=== PATIENT | female | born 1955 | race Hispanic/Latino ===

== ENCOUNTER 2017-04-20 10:52 | Inpatient (IN) | payer BC ==
[2017-04-20 11:04] VITALS: BMI 25.7
[2017-04-20] MEDS ORDERED: Sodium Chloride 0.9% 1,000 ML IV STA (11:49)
[2017-04-20] MEDS ORDERED: Iohexol 240 (50 ml) PO ONE (11:52)
[2017-04-20] MEDS ORDERED: Iohexol 240 (50 ml) ONE (12:00)
[2017-04-20 12:05] LABS: BASO % 0.2 % (0.0-2.0); HEMOGLOBIN 13.1 g/dL (12.0-16.0); LYMPH # 0.6 K/uL (1.0-4.3); LYMPH % 5.5 % (20.0-40.0); MEAN CELL VOLUME 92.7 fl (81.0-99.0); MEAN CORPUSCULAR HEMOGLOBIN 30.8 pg (27.0-31.0); MEAN CORPUSCULAR HGB CONC 33.2 g/dL (33.0-37.0); MEAN PLATELET VOLUME 8.5 fl (7.2-11.7); MONO # 0.3 K/uL (0.0-0.8); MONO % 2.8 % (0.0-10.0); NEUT # 10.1 K/uL (1.8-7.0); NEUT % 91.5 % (50.0-75.0); PLATELET COUNT 171 K/uL (130-400); RBC 4.24 Mil/uL (3.80-5.20); RED CELL DISTRIBUTION WIDTH 12.5 % (11.5-14.5)
[2017-04-20 12:06] LABS: VENOUS BLOOD GAS PCO2 34 mmHg (40-60); VENOUS BLOOD GAS PO2 62 mm/Hg (30-55); VENOUS BLOOD PH 7.43 (7.32-7.43)
--- NOTE | 2017-04-20 12:09 | ED PDOC ---
HPI: Seizure Time Seen by Provider: 04/20/17 11:03 Chief Complaint (Nursing): Seizure Chief Complaint (Provider): Abdominal Pain, Vomiting, Diarrhea and Headache History Per: Patient History/Exam Limitations: no limitations Past Medical History Vital Signs: Last Vital Signs Temp 99.4 F 04/20/17 11:07 Pulse 98 H 04/20/17 11:07 Resp 18 04/20/17 11:07 BP 122/76 04/20/17 11:07 Pulse Ox 98 04/20/17 11:07 - Medical History PMH: Fibromyalgia, HTN - Surgical History Surgical History: Cholecystectomy - Allergies Allergies/Adverse Reactions: Allergies Allergy/AdvReac Type Severity Reaction Status Date / Time cefaclor [From Ceclor] Allergy RASH Verified 04/20/17 11:06 - ECG O2 Sat by Pulse Oximetry: 98 Disposition - Disposition
--- NOTE | 2017-04-20 12:12 | ED PDOC ---
HPI:Nausea, Vomiting, Diarrhea Time Seen by Provider: 04/20/17 11:03 Chief Complaint (Nursing): Seizure Chief Complaint (Provider): Abdominal Pain,Vomiting and Diarrhea History Per: Patient History/Exam Limitations: no limitations Onset/Duration Of Symptoms: Days (x4) Current Symptoms Are (Timing): Still Present Associated Symptoms: Vomiting, Diarrhea. denies: Fever, Chills, Nausea Exacerbating Factors: None Alleviating Factors: None Additional Complaint(s): 61 year old female with a past medical history of fibromyalgia and hypertension and hyperlipidemia presents to the ED complaining of abdominal pain, vomiting and diarrhea x4 days. The patients states that yesterday she had multiple episodes of non bloody, non bilious vomit and watery, non bloody diarrhea associated with epigastric pain but was still able to tolerate PO. The patient further states that yesterday while driving in a car she felt weak to the point where she felt as though she was going to pass out but she states that she did not. She states that she was initially brought to the ED because she thought she had a seizure but those who witnessed her pass out state that there was no convulsions or seizure like activity. Denies chest pain, shortness of breath and loss of consciousness. In addition, the patient also states that she has had 4 days of intermittent cough and fever as well as headache. She reports that headaches are typical for her as she was diagnosed with migraine headaches in the past. She luis hx of seizures. Per family patient taking Xanax, SOMA, and vicodin on regular basis but unknown when she took it the last. Abnormal Vaginal Bleeding: No Past Medical History Reviewed: Historical Data, Nursing Documentation, Vital Signs Vital Signs: Last Vital Signs Temp 99.4 F 04/20/17 11:07 Pulse 98 H 04/20/17 11:07 Resp 18 04/20/17 11:07 BP 122/76 04/20/17 11:07 Pulse Ox 98 04/20/17 11:07 - Medical History PMH: Fibromyalgia, HTN, Hyperlipidemia - Surgical History Surgical History: Cholecystectomy - Family History Family History: States: Unknown Family Hx - Social History Current smoker - smoking cessation education provided: No Ex-Smoker (has not smoked in the last 12 months): No Alcohol: None Drugs: Denies - Home Medications Home Medications: Ambulatory Orders Medication Instructions Recorded Carisoprodol [Soma] 350 mg PO Q4 04/20/17 Ferrous Sulfate [Ferosul] 325 mg PO DAILY 04/20/17 Hydrocodone/Acetaminophen 10 mg PO Q4 04/20/17 [Hydrocodone-Acetamin 10-325 mg] Nitroglycerin [Nitrostat] 0.4 mg PO PRN PRN 04/20/17 Pantoprazole [Protonix EC Tab] 40 mg PO DAILY 04/20/17 Ropinirole HCl [Ropinirole HCl] 1 mg PO Q12 04/20/17 Tapentadol HCl [Nucynta] 100 mg PO Q8 04/20/17 - Allergies Allergies/Adverse Reactions: Allergies Allergy/AdvReac Type Severity Reaction Status Date / Time cefaclor [From [facility]] Allergy RASH Verified 04/20/17 11:06 Review of Systems ROS Statement: Except As Marked, All Systems Reviewed And Found Negative Constitutional: Positive for: Fever (intermittent) Cardiovascular: Negative for: Chest Pain Respiratory: Positive for: Cough. Negative for: Shortness of Breath Gastrointestinal: Positive for: Vomiting (non bloody; non bilious), Abdominal Pain, Diarrhea (non bloody; watery) Neurological: Positive for: Weakness, Headache Physical Exam - Reviewed Nursing Documentation Reviewed: Yes Vital Signs Reviewed: Yes - Physical Exam Appears: Positive for: Non-toxic, No Acute Distress Head Exam: Positive for: ATRAUMATIC, NORMAL INSPECTION, NORMOCEPHALIC Skin: Positive for: Normal Color, Warm, Dry. Negative for: Rash Eye Exam: Positive for: Normal appearance, EOMI, PERRL ENT: Positive for: Normal ENT Inspection. Negative for: Nasal Congestion, Tonsillar Exudate Neck: Positive for: Normal, Painless ROM, Supple Cardiovascular/Chest: Positive for: Regular Rate, Rhythm, Chest Non Tender. Negative for: Tachycardia Respiratory: Positive for: Normal Breath Sounds. Negative for: Wheezing, Respiratory Distress Gastrointestinal/Abdominal: Positive for: Normal Exam, Bowel Sounds, Soft. Negative for: Tenderness, Guarding Back: Positive for: Normal Inspection. Negative for: L CVA Tenderness, R CVA Tenderness, Muscle Spasm Extremity: Positive for: Normal ROM. Negative for: Tenderness, Deformity, Swelling Neurologic/Psych: Positive for: Alert, Oriented (x3), Gait (steady) - Laboratory Results Result Diagrams: 04/21/17 07:39 04/21/17 07:39 - ECG O2 Sat by Pulse Oximetry: 98 (RA) Pulse Ox Interpretation: Normal - Progress Re-evaluation Time: 17:00 Condition: Re-examined, Unchanged Medical Decision Making Medical Decision Makin Initial Impression 61 y/o female presenting with abdominal pain, vomiting, diarrhea and migraine headaches Differentials: Gastroenteritis, Colitis, Dehydration with vasovagal syncope as a result migraine headaches Initial Plan: * VBG * CT Abdomen & Pelv * CT Head w/o Contrast * EKG * Alcohol Serum * CMP * Lipase * CBC * Potassium Chloride 20 meq PO * NS 1000 mls IV 1000mls/hr * Iohexol 50mL PO * Reglan 10mg IVP * Blood Culture * Reevaluation 1700 While I was at bedside discussing disposition with the patient and family after patient just had diarrhea in the bathroom and was in the bed when she suddenly lied down and starting to have seizures activity involving her head/ neck/torso. Patient was unconscious and seizing for 1 min. No tongue biting or urination noted. Patient was given Ativan IV after which she was postictal. 1800 Discussed the case with Dr Ling who will be on consult. Documented by Paris Espinoza acting as a scribe for Zo Bishop MD. All medical record entries made by the Scribe were at my direction and personally dictated by me. I have reviewed the chart and agree that the record accurately reflects my personal performance of the history, physical exam, medical decision making, and the department course for this patient. I have also personally directed, reviewed, and agree with the discharge instructions and disposition. Disposition - Clinical Impression Clinical Impression: Witnessed seizure, Gastroenteritis, Headache, Dehydration - Patient ED Disposition Is Patient to be Admitted: Yes Discussed With : Freddy Torres Doctor Will See Patient In The: ED Counseled Patient/Family Regarding: Studies Performed, Diagnosis - Disposition Disposition Time: 16:50 Condition: FAIR - Pt Status Changed To: Hospital Disposition Of: Inpatient - Admit Certification Admit to Inpatient:: After my assessment, the patient will require hospitalization for at least two midnights. This is because of the severity of symptoms shown, intensity of services needed, and/or the medical risk in this patient being treated as an outpatient. - POA Present On Arrival: None
[2017-04-20 12:15] LABS: ALB/GLOB RATIO 1.4 (1.0-2.1); ALBUMIN 4.5 g/dL (3.5-5.0); ALT/SGPT 30 U/L (9-52); AST/SGOT 21 U/L (14-36); BLOOD UREA NITROGEN 10 mg/dl (7-17); GFR AFRICAN-AMERICAN > 60; GFR NON-AFRICAN AMERICAN > 60; LIPASE 55 U/L (23-300)
[2017-04-20] MEDS ORDERED: Potassium Chloride 20 mEq ER Tab PO ONE ×2 (12:30→12:53)
[2017-04-20 13:25] LABS: BANDS 1 % (0-2); LYMPHOCYTE 6 % (20-50); MONOCYTE 4 % (0-10); NEUTROPHIL 89 % (42-75); PLATELET ESTIMATE NORMAL (NORMAL); TOTAL CELLS COUNTED 100
[2017-04-20] MEDS ORDERED: Sodium Chloride 0.9% 50 ML IV ONE (14:09)
[2017-04-20] MEDS ORDERED: Iohexol 300 100 ML IJ ONE (14:09)
--- NOTE | 2017-04-20 14:46 | CT ---
PROCEDURE: CT Abdomen and Pelvis with contrast HISTORY: abdominal pain COMPARISON: None. TECHNIQUE: Contrast dose: 95 Omnipaque 300 Radiation dose: Total exam DLP = 618.9 mGy-cm. This CT exam was performed using one or more of the following dose reduction techniques: Automated exposure control, adjustment of the mA and/or kV according to patient size, and/or use of iterative reconstruction technique. FINDINGS: LOWER THORAX: Unremarkable. LIVER: Unremarkable. No gross lesion or ductal dilatation. GALLBLADDER AND BILE DUCTS: Prior cholecystectomy with surgical clips in place. PANCREAS: Unremarkable. No gross lesion or ductal dilatation. SPLEEN: Unremarkable. ADRENALS: Unremarkable. No mass. KIDNEYS AND URETERS: Unremarkable. No hydronephrosis. No solid mass. VASCULATURE: Unremarkable. No aortic aneurysm. BOWEL: Colonic diverticulosis without evidence for acute diverticulitis. No obstruction. No gross mural thickening. APPENDIX: Normal appendix. PERITONEUM: Small fat containing umbilical hernia. No free fluid. No free air. Nonspecific small calcified structures within the pelvis. LYMPH NODES: Unremarkable. No enlarged lymph nodes. BLADDER: Unremarkable. REPRODUCTIVE: Unremarkable. BONES: No acute fracture. OTHER FINDINGS: None. IMPRESSION: No acute abdominal pelvic pathology. Colonic diverticulosis without evidence for acute diverticulitis. Additional findings as above.
--- NOTE | 2017-04-20 14:48 | CT ---
PROCEDURE: CT HEAD WITHOUT CONTRAST. HISTORY: headache COMPARISON: None available. TECHNIQUE: Axial computed tomography images were obtained through the head/brain without intravenous contrast. Radiation dose: Total exam DLP = 926.3 mGy-cm. This CT exam was performed using one or more of the following dose reduction techniques: Automated exposure control, adjustment of the mA and/or kV according to patient size, and/or use of iterative reconstruction technique. FINDINGS: HEMORRHAGE: No intracranial hemorrhage. BRAIN: No mass effect or edema. No atrophy or chronic microvascular ischemic changes. VENTRICLES: Unremarkable. No hydrocephalus. CALVARIUM: Unremarkable. PARANASAL SINUSES: Unremarkable as visualized. No significant inflammatory changes. MASTOID AIR CELLS: Unremarkable as visualized. No inflammatory changes. OTHER FINDINGS: None. IMPRESSION: No acute intracranial pathology.
[2017-04-20] MEDS ORDERED: Multivitamin (MVI) 10 ML, Thiamine 100 MG in Dextrose 5%/0.45% NS 1,000 ML IV ONE (16:57)
[2017-04-20] MEDS ORDERED: Ciprofloxacin 400mg/200ml D5W 400 MG/200 ML BAG IVPB STA (17:43)
[2017-04-20] MEDS ORDERED: metroNIDAZOLE 500mg/100ml NS 100 ML IVPB STA (17:44)
[2017-04-20] MEDS ORDERED: metroNIDAZOLE 500mg/100ml NS 100 ML IVPB ONE (18:16)
[2017-04-20] MEDS ORDERED: Sodium Chloride 0.9% 1,000 ML IV SCH (18:30)
[2017-04-20 18:35] LABS: BARBITURATES, UR NEGATIVE (NEGATIVE); BENZODIAZEPINES, UR NEGATIVE (NEGATIVE); PHENCYCLIDINE, UR NEGATIVE (NEGATIVE)
[2017-04-20 18:39] LABS: OPIATES, UR POSITIVE (NEGATIVE)
--- NOTE | 2017-04-20 21:13 | CP.PCM.HP ---
History of Present Illness - History of Present Illness History of Present Illness: CC: AMS, and Diarrhea/Nausea/Vomiting History of Present Illness: History from the Patient, Family and Chart A 61 year old female with a past medical history of Fibromyalgia on Vicodin and Tapentadol , RLS on Soma, DILIA on CPAP, hypertension & Hyperlipidemia presents to the ED complaining of abdominal pain, vomiting and diarrhea x4 days which got worse today with profuse diarrhea about 6X over 2hrs. The patients states that yesterday she had multiple episodes of non bloody, non bilious vomit and watery, non bloody diarrhea associated with epigastric pain but was still able to tolerate PO. The patient further states that yesterday while driving in a car she felt weak to the point where she felt as though she was going to pass out but she states that she did not. Denies chest pain, shortness of breath and loss of consciousness. In addition, the patient also states that she has had 4 days of intermittent cough and fever as well as headache. She reports that headaches are typical for her as she was diagnosed with migraine headaches in the past. In the ER, she was given a bolus of IVF and being monitored when she had seizure like activities which was aborted by Ativan 2mg IV, and she became Lethargic after the Ativan. No loss of sphincter control or Tongue Bite. As Per family patient taking Xanax, SOMA, and vicodin on regular basis but unknown when she took ilast before Presentation. Present on Admission - Present on Admission Any Indicators Present on Admission: No History of DVT/PE: No History of Uncontrolled Diabetes: No Urinary Catheter: No Decubitus Ulcer Present: No Review of Systems - Review of Systems All systems: reviewed and no additional remarkable complaints except - Constitutional Constitutional: Chills, Fatigue, Fever, Headache - Cardiovascular Cardiovascular: As Per HPI - Gastrointestinal Gastrointestinal: As Per HPI, Abdominal Pain, Bloating, Change in Stool Character, Diarrhea, Loose Stools, Nausea, Vomiting - Neurological Neurological: As Per HPI Past Patient History - Past Medical History & Family History Past Medical History?: Yes Past Family History: Reviewed and not pertinent - Past Social History Smoking Status: Never Smoked Alcohol: None Drugs: Denies - CARDIAC Hx Hypertension: Yes - PULMONARY Hx Sleep Apnea: Yes - PSYCHIATRIC Hx Substance Use: No - SURGICAL HISTORY Hx Cholecystectomy: Yes - ANESTHESIA Hx Anesthesia: No Meds Allergies/Adverse Reactions: Allergies Allergy/AdvReac Type Severity Reaction Status Date / Time cefaclor [From [facility]] Allergy RASH Verified 04/20/17 11:06 Physical Exam - Constitutional Appears: Well, In Acute Distress - Head Exam Head Exam: ATRAUMATIC, NORMAL INSPECTION, NORMOCEPHALIC - Eye Exam Eye Exam: EOMI, Normal appearance, PERRL Pupil Exam: NORMAL ACCOMODATION, PERRL - ENT Exam ENT Exam: Mucous Membranes Moist, Normal Exam - Neck Exam Neck exam: Positive for: Normal Inspection - Respiratory Exam Respiratory Exam: Clear to Auscultation Bilateral, NORMAL BREATHING PATTERN - Cardiovascular Exam Cardiovascular Exam: REGULAR RHYTHM, +S1, +S2 - GI/Abdominal Exam GI & Abdominal Exam: Guarding, Normal Bowel Sounds, Soft, Tenderness. absent: Rebound, Rigid - Extremities Exam Extremities exam: Positive for: normal capillary refill, normal inspection - Back Exam Back exam: NORMAL INSPECTION. absent: CVA tenderness (L), CVA tenderness (R) - Neurological Exam Neurological exam: Altered, CN II-XII Intact, Reflexes Normal - Psychiatric Exam Psychiatric exam: Normal Affect, Normal Mood - Skin Skin Exam: Dry, Intact, Normal Color, Warm Results - Vital Signs Recent Vital Signs: Last Vital Signs Temp 102.5 F H 04/20/17 20:27 Pulse 85 04/20/17 20:27 Resp 20 04/20/17 20:27 BP 128/72 04/20/17 20:27 Pulse Ox 95 04/20/17 20:27 - Labs Result Diagrams: 04/21/17 07:39 04/21/17 07:39 Labs: Laboratory Results - last 24 hr 04/20/17 04/20/17 04/20/17 11:08 11:52 11:55 WBC RBC Hgb Hct MCV MCH MCHC RDW Plt Count MPV Neut % (Auto) Lymph % (Auto) [place] % (Auto) Eos % (Auto) Baso % (Auto) Neut # Lymph # [place] # Eos # Baso # Neutrophils % (Manual) Band Neutrophils % Lymphocytes % (Manual) Monocytes % (Manual) Platelet Estimate RBC Morphology pO2 62 H VBG pH 7.43 VBG pCO2 34 L VBG HCO3 23.9 VBG Total CO2 23.6 VBG O2 Sat (Calc) 95.8 H VBG Base Excess -1.0 L VBG Potassium 3.3 L A-a O2 Difference 45.0 Sodium 129.0 L 131 L Chloride 98.0 96 L Glucose 121 H Lactate 0.7 FiO2 21.0 Potassium 3.3 L Carbon Dioxide 23 Anion Gap 15 BUN 10 Creatinine 0.6 L Est GFR ( Amer) > 60 Est GFR (Non-Af Amer) > 60 POC Glucose (mg/dL) 113 H Random Glucose 119 H Calcium 9.0 Total Bilirubin 1.0 AST 21 ALT 30 Alkaline Phosphatase 56 Total Protein 7.6 Albumin 4.5 Globulin 3.2 Albumin/Globulin Ratio 1.4 Lipase 55 Venous Blood Potassium 3.3 L Urine Opiates Screen Urine Methadone Screen Ur Barbiturates Screen Ur Phencyclidine Scrn Ur Amphetamines Screen U Benzodiazepines Scrn U Oth Cocaine Metabols U Cannabinoids Screen Alcohol, Quantitative < 10 04/20/17 04/20/17 11:55 17:50 WBC 11.0 H RBC 4.24 Hgb 13.1 Hct 39.3 MCV 92.7 MCH 30.8 MCHC 33.2 RDW 12.5 Plt Count 171 MPV 8.5 Neut % (Auto) 91.5 H Lymph % (Auto) 5.5 L [place] % (Auto) 2.8 Eos % (Auto) 0.0 Baso % (Auto) 0.2 Neut # 10.1 H Lymph # 0.6 L [place] # 0.3 Eos # 0.0 Baso # 0.0 Neutrophils % (Manual) 89 H Band Neutrophils % 1 Lymphocytes % (Manual) 6 L Monocytes % (Manual) 4 Platelet Estimate Normal RBC Morphology Normal pO2 VBG pH VBG pCO2 VBG HCO3 VBG Total CO2 VBG O2 Sat (Calc) VBG Base Excess VBG Potassium A-a O2 Difference Sodium Chloride Glucose Lactate FiO2 Potassium Carbon Dioxide Anion Gap BUN Creatinine Est GFR ( Amer) Est GFR (Non-Af Amer) POC Glucose (mg/dL) Random Glucose Calcium Total Bilirubin AST ALT Alkaline Phosphatase Total Protein Albumin Globulin Albumin/Globulin Ratio Lipase Venous Blood Potassium Urine Opiates Screen Positive H Urine Methadone Screen Negative Ur Barbiturates Screen Negative Ur Phencyclidine Scrn Negative Ur Amphetamines Screen Negative U Benzodiazepines Scrn Negative U Oth Cocaine Metabols Negative U Cannabinoids Screen Negative Alcohol, Quantitative - Imaging and Cardiology CT abdomen/Plevis: Status: Report reviewed by me Additional comment: IMPRESSION: No acute abdominal pelvic pathology. Colonic diverticulosis without evidence for acute diverticulitis. CT scan - head Status: Report reviewed by me Additional comment: IMPRESSION: No acute intracranial pathology. Assessment & Plan (1) Acute gastroenteritis Assessment and Plan: AMS: Metabolic Encephalopathy Vs Medication VS Poetical- CT head w/o contrast- Negative for Acute finding IVF IV Ciprofloxacin/Flagyl Blood and Urine Cultures Stool work up U/A Repeat EKG ID Consult Status: Acute (2) Chronic pain syndrome Assessment and Plan: Continue Vicodin PRN Hold Soma due to seizure episode Status: Chronic Priority: Medium (3) Witnessed seizure Assessment and Plan: Ativan PRN Neurology Consult MRI Brain if Mental status does not change. Status: Acute Priority: Low (4) DILIA (obstructive sleep apnea) Assessment and Plan: CPAP (requested the family to bring her CPAP Machine) O2 Via Status: Chronic Priority: Low
[2017-04-20] MEDS: HYDROCODONE PO PRN (22:57)
[2017-04-20] MEDS: ACETAMINOPHEN PO PRN (22:57)
[2017-04-20] MEDS: ROPINIROLE HCL 1 MG PO SCH (23:04)
[2017-04-21 00:06] LABS: MAGNESIUM 1.7 MG/DL (1.6-2.3)
[2017-04-21] MEDS: TAPENTADOL HCL 100 MG PO SCH ×3 (01:38→19:05)
[2017-04-21] MEDS: metroNIDAZOLE 500mg/100ml NS 100 ML IVPB SCH ×3 (01:40→19:01)
[2017-04-21] MEDS: Sodium Chloride 0.9% 1,000 ML IV SCH ×2 (05:20→19:05)
[2017-04-21 07:39] LABS: BASO % 0.1 % (0.0-2.0); HEMOGLOBIN 12.8 g/dL (12.0-16.0); LYMPH # 0.6 K/uL (1.0-4.3); MEAN CELL VOLUME 92.4 fl (81.0-99.0); MEAN CORPUSCULAR HGB CONC 33.5 g/dL (33.0-37.0); MEAN PLATELET VOLUME 8.9 fl (7.2-11.7); MONO # 0.7 K/uL (0.0-0.8); MONO % 8.3 % (0.0-10.0); NEUT # 6.9 K/uL (1.8-7.0); NEUT % 84.6 % (50.0-75.0); NRBC % 0.3 % (0.0-0.0); RBC 4.14 Mil/uL (3.80-5.20); RED CELL DISTRIBUTION WIDTH 12.5 % (11.5-14.5); WHITE BLOOD COUNT 8.2 K/uL (4.8-10.8)
[2017-04-21 07:55] LABS: ALB/GLOB RATIO 1.3 (1.0-2.1); ALBUMIN 3.9 g/dL (3.5-5.0); ALT/SGPT 33 U/L (9-52); AST/SGOT 22 U/L (14-36); BLOOD UREA NITROGEN 9 mg/dl (7-17); CALCIUM 8.3 mg/dL (8.4-10.2); GFR AFRICAN-AMERICAN > 60; GFR NON-AFRICAN AMERICAN > 60
[2017-04-21] MEDS ORDERED: Chlorhexidine Gluconate 1 APPL/PKT TP ONE (08:06)
--- NOTE | 2017-04-21 08:10 | CARD ---
APPROVED REPORT EKG Measurement Heart [id number] <Conclusion> Normal sinus rhythm Minimal voltage criteria for LVH, may be normal variant Nonspecific ST abnormality Abnormal ECG
[2017-04-21] MEDS ORDERED: Potassium Chloride 20 mEq ER Tab PO ONE (08:29)
[2017-04-21] MEDS: Pantoprazole 40 mg EC Tab PO SCH (08:34)
[2017-04-21] MEDS: ROPINIROLE HCL 1 MG PO SCH ×2 (08:36→20:47)
[2017-04-21] MEDS ORDERED: Ciprofloxacin 400mg/200ml D5W 400 MG/200 ML BAG IVPB SCH (09:00)
--- NOTE | 2017-04-21 10:47 | CP.PCM.CON ---
History of Present Illness - History of Present Illness History of Present Illness: Infectious Disease Consultation Note- asked to see this patient at the request of Dr. dotson for gastroenteritis symptoms rule out infectious etiology. HPI- Patient is a 61 year old female with PMH of fibromyalgias, HTN, HLD and h/o hiatal hernia s/p band procedure who was admitted with c/o nausea and dry heave vomiting and abdominal pain and also few episodes of watery diarrhea yesterday. she states she ate pizza the other day but no one else in her family got sick and they all had the same food. she denies any recent exotic travel. She also states couple weeks ago she was on augmentin for strep throat. pt. also c/o fever and chills. denies any LITTLE, states had cough but not now, denies any sob, denies any chest pain, epigastric abd pain, + nausea and diarrhea. Review of Systems - Review of Systems Review of Systems: ROS- as stated in HPI Past Patient History - Past Medical History & Family History Past Medical History?: Yes - Past Social History Smoking Status: Never Smoked Drugs: Denies Home Situation {Lives}: With Family - CARDIAC Hx Hypertension: Yes - PULMONARY Hx Respiratory Disorders: No - RENAL Hx Chronic Kidney Disease: No - ENDOCRINE/METABOLIC Hx Endocrine Disorders: No - HEMATOLOGICAL/ONCOLOGICAL Hx Blood Disorders: No - MUSCULOSKELETAL/RHEUMATOLOGICAL Hx Falls: Yes - PSYCHIATRIC Hx Substance Use: No - SURGICAL HISTORY Hx Cholecystectomy: Yes - ANESTHESIA Hx Anesthesia: Yes Hx Anesthesia Reactions: No Meds Allergies/Adverse Reactions: Allergies Allergy/AdvReac Type Severity Reaction Status Date / Time cefaclor [From [facility]] Allergy RASH Verified 04/20/17 11:06 - Medications Medications: Current Medications Acetaminophen (Tylenol 325mg Tab) 650 mg PO Q6 PRN PRN Reason: Fever >100.4 F Last Admin: 04/21/17 05:01 Dose: 650 mg Ferrous Sulfate (Feosol) 325 mg PO DAILY [facility] Last Admin: 04/21/17 08:35 Dose: 325 mg Home Med (Hydrocodone/Acetaminophen [Hydrocodone-Acetamin 10-325 Mg]) 10 mg PO Q6 PRN PRN Reason: Pain, moderate (4-7) Last Admin: 04/20/17 22:57 Dose: 10 mg Home Med (Ropinirole Hcl [Ropinirole Hcl]) 1 mg PO Q12 [facility] Last Admin: 04/21/17 08:36 Dose: 1 mg Home Med (Tapentadol Hcl [Nucynta]) 100 mg PO Q8 [facility] Last Admin: 04/21/17 08:37 Dose: 100 mg Sodium Chloride (Sodium Chloride 0.9%) 1,000 mls @ 125 mls/hr IV .Q8H [facility] Stop: 04/21/17 18:22 Last Admin: 04/21/17 05:20 Dose: 125 mls/hr Metronidazole (Flagyl 500mg/100ml Ns) 100 mls @ 100 mls/hr IVPB Q8 [facility] PRN Reason: Protocol Last Admin: 04/21/17 08:34 Dose: 100 mls/hr Ciprofloxacin (Cipro 400mg/200ml Dsw) 400 mg in 200 mls @ 200 mls/hr IVPB Q12 [facility] PRN Reason: Protocol Lorazepam (Ativan) 2 mg IV Q4 PRN PRN Reason: Seizure activity Ondansetron HCl (Zofran Inj) 4 mg IVP Q4 PRN PRN Reason: Nausea/Vomiting Pantoprazole Sodium (Protonix Ec Tab) 40 mg PO DAILY [facility] Last Admin: 04/21/17 08:34 Dose: Not Given Physical Exam - Constitutional Appears: No Acute Distress - Head Exam Head Exam: ATRAUMATIC - Eye Exam Eye Exam: EOMI Pupil Exam: PERRL - ENT Exam ENT Exam: Normal Oropharynx - Neck Exam Neck exam: Positive for: Full Rom - Respiratory Exam Respiratory Exam: Clear to Auscultation Bilateral, NORMAL BREATHING PATTERN - Cardiovascular Exam Cardiovascular Exam: RRR, +S1, +S2 - GI/Abdominal Exam GI & Abdominal Exam: Normal Bowel Sounds, Soft Additional comments: no distention minimal tenderness in midepigastric region with deep palpation No guarding, no rebound - Extremities Exam Extremities exam: Positive for: normal inspection - Neurological Exam Neurological exam: Alert, Oriented x3 Results - Vital Signs Recent Vital Signs: Last Vital Signs Temp 101.8 F H 04/21/17 08:23 Pulse 75 04/21/17 08:23 Resp 18 04/21/17 08:23 BP 136/75 04/21/17 08:23 Pulse Ox 95 04/21/17 08:23 - Labs Result Diagrams: 04/21/17 07:39 04/21/17 07:39 Labs: Laboratory Results - last 24 hr 04/20/17 04/20/17 04/20/17 11:08 11:52 11:55 WBC RBC Hgb Hct MCV MCH MCHC RDW Plt Count MPV Neut % (Auto) Lymph % (Auto) [place] % (Auto) Eos % (Auto) Baso % (Auto) Neut # Lymph # [place] # Eos # Baso # Neutrophils % (Manual) Band Neutrophils % Lymphocytes % (Manual) Monocytes % (Manual) Platelet Estimate RBC Morphology ESR pO2 62 H VBG pH 7.43 VBG pCO2 34 L VBG HCO3 23.9 VBG Total CO2 23.6 VBG O2 Sat (Calc) 95.8 H VBG Base Excess -1.0 L VBG Potassium 3.3 L A-a O2 Difference 45.0 Sodium 129.0 L 131 L Chloride 98.0 96 L Glucose 121 H Lactate 0.7 FiO2 21.0 Potassium 3.3 L Carbon Dioxide 23 Anion Gap 15 BUN 10 Creatinine 0.6 L Est GFR ( Amer) > 60 Est GFR (Non-Af Amer) > 60 POC Glucose (mg/dL) 113 H Random Glucose 119 H Calcium 9.0 Magnesium Total Bilirubin 1.0 AST 21 ALT 30 Alkaline Phosphatase 56 Total Protein 7.6 Albumin 4.5 Globulin 3.2 Albumin/Globulin Ratio 1.4 Lipase 55 Free T4 TSH 3rd Generation Venous Blood Potassium 3.3 L Urine Opiates Screen Urine Methadone Screen Ur Barbiturates Screen Ur Phencyclidine Scrn Ur Amphetamines Screen U Benzodiazepines Scrn U Oth Cocaine Metabols U Cannabinoids Screen Alcohol, Quantitative < 10 04/20/17 04/20/17 04/20/17 11:55 17:50 23:55 WBC 11.0 H RBC 4.24 Hgb 13.1 Hct 39.3 MCV 92.7 MCH 30.8 MCHC 33.2 RDW 12.5 Plt Count 171 MPV 8.5 Neut % (Auto) 91.5 H Lymph % (Auto) 5.5 L [place] % (Auto) 2.8 Eos % (Auto) 0.0 Baso % (Auto) 0.2 Neut # 10.1 H Lymph # 0.6 L [place] # 0.3 Eos # 0.0 Baso # 0.0 Neutrophils % (Manual) 89 H Band Neutrophils % 1 Lymphocytes % (Manual) 6 L Monocytes % (Manual) 4 Platelet Estimate Normal RBC Morphology Normal ESR pO2 VBG pH VBG pCO2 VBG HCO3 VBG Total CO2 VBG O2 Sat (Calc) VBG Base Excess VBG Potassium A-a O2 Difference Sodium Chloride Glucose Lactate FiO2 Potassium Carbon Dioxide Anion Gap BUN Creatinine Est GFR ( Amer) Est GFR (Non-Af Amer) POC Glucose (mg/dL) Random Glucose Calcium Magnesium 1.7 Total Bilirubin AST ALT Alkaline Phosphatase Total Protein Albumin Globulin Albumin/Globulin Ratio Lipase Free T4 TSH 3rd Generation 0.26 L Venous Blood Potassium Urine Opiates Screen Positive H Urine Methadone Screen Negative Ur Barbiturates Screen Negative Ur Phencyclidine Scrn Negative Ur Amphetamines Screen Negative U Benzodiazepines Scrn Negative U Oth Cocaine Metabols Negative U Cannabinoids Screen Negative Alcohol, Quantitative 04/21/17 04/21/17 04/21/17 04:20 04:20 07:39 WBC 8.2 RBC 4.14 Hgb 12.8 Hct 38.3 MCV 92.4 MCH 31.0 MCHC 33.5 RDW 12.5 Plt Count 147 MPV 8.9 Neut % (Auto) 84.6 H Lymph % (Auto) 7.0 L [place] % (Auto) 8.3 Eos % (Auto) 0.0 Baso % (Auto) 0.1 Neut # 6.9 Lymph # 0.6 L [place] # 0.7 Eos # 0.0 Baso # 0.0 Neutrophils % (Manual) Band Neutrophils % Lymphocytes % (Manual) Monocytes % (Manual) Platelet Estimate RBC Morphology ESR 18 pO2 VBG pH VBG pCO2 VBG HCO3 VBG Total CO2 VBG O2 Sat (Calc) VBG Base Excess VBG Potassium A-a O2 Difference Sodium Chloride Glucose Lactate FiO2 Potassium Carbon Dioxide Anion Gap BUN Creatinine Est GFR ( Amer) Est GFR (Non-Af Amer) POC Glucose (mg/dL) Random Glucose Calcium Magnesium Total Bilirubin AST ALT Alkaline Phosphatase Total Protein Albumin Globulin Albumin/Globulin Ratio Lipase Free T4 TSH 3rd Generation 0.13 L Venous Blood Potassium Urine Opiates Screen Urine Methadone Screen Ur Barbiturates Screen Ur Phencyclidine Scrn Ur Amphetamines Screen U Benzodiazepines Scrn U Oth Cocaine Metabols U Cannabinoids Screen Alcohol, Quantitative 04/21/17 04/21/17 07:39 07:39 WBC RBC Hgb Hct MCV MCH MCHC RDW Plt Count MPV Neut % (Auto) Lymph % (Auto) [place] % (Auto) Eos % (Auto) Baso % (Auto) Neut # Lymph # [place] # Eos # Baso # Neutrophils % (Manual) Band Neutrophils % Lymphocytes % (Manual) Monocytes % (Manual) Platelet Estimate RBC Morphology ESR pO2 VBG pH VBG pCO2 VBG HCO3 VBG Total CO2 VBG O2 Sat (Calc) VBG Base Excess VBG Potassium A-a O2 Difference Sodium 130 L Chloride 96 L Glucose Lactate FiO2 Potassium 3.5 L Carbon Dioxide 26 Anion Gap 12 BUN 9 Creatinine 0.5 L Est GFR ( Amer) > 60 Est GFR (Non-Af Amer) > 60 POC Glucose (mg/dL) Random Glucose 151 H Calcium 8.3 L Magnesium Total Bilirubin 0.8 AST 22 ALT 33 Alkaline Phosphatase 44 Total Protein 6.9 Albumin 3.9 Globulin 3.0 Albumin/Globulin Ratio 1.3 Lipase Free T4 0.73 L TSH 3rd Generation Venous Blood Potassium Urine Opiates Screen Urine Methadone Screen Ur Barbiturates Screen Ur Phencyclidine Scrn Ur Amphetamines Screen U Benzodiazepines Scrn U Oth Cocaine Metabols U Cannabinoids Screen Alcohol, Quantitative Microbiology 04/20/17 11:55 Blood-Venous Blood Culture - Preliminary NO GROWTH AFTER 24 HOURS Accession No. : [id number] Patient Name / ID : JACKY MERINO / [id number] Exam Date : 04/20/2017 13:56:28 ( Approved ) Study Comment : Sex / Age : F / 61Y Creator : Ted Perez MD Dictator : Ted Perez MD Safety Technician : Excel V[employer] Developer : Ted Perez MD Approver2 : Report Date : 04/20/2017 14:45:12 My Comment : PROCEDURE: CT Abdomen and Pelvis with contrast HISTORY: abdominal pain COMPARISON: None. TECHNIQUE: Contrast dose: 95 Omnipaque 300 Radiation dose: Total exam DLP = 618.9 mGy-cm. This CT exam was performed using one or more of the following dose reduction techniques: Automated exposure control, adjustment of the mA and/or kV according to patient size, and/or use of iterative reconstruction technique. FINDINGS: LOWER THORAX: Unremarkable. LIVER: Unremarkable. No gross lesion or ductal dilatation. GALLBLADDER AND BILE DUCTS: Prior cholecystectomy with surgical clips in place. PANCREAS: Unremarkable. No gross lesion or ductal dilatation. SPLEEN: Unremarkable. ADRENALS: Unremarkable. No mass. KIDNEYS AND URETERS: Unremarkable. No hydronephrosis. No solid mass. VASCULATURE: Unremarkable. No aortic aneurysm. BOWEL: Colonic diverticulosis without evidence for acute diverticulitis. No obstruction. No gross mural thickening. APPENDIX: Normal appendix. PERITONEUM: Small fat containing umbilical hernia. No free fluid. No free air. Nonspecific small calcified structures within the pelvis. LYMPH NODES: Unremarkable. No enlarged lymph nodes. BLADDER: Unremarkable. REPRODUCTIVE: Unremarkable. BONES: No acute fracture. OTHER FINDINGS: None. IMPRESSION: No acute abdominal pelvic pathology. Colonic diverticulosis without evidence for acute diverticulitis. Additional findings as above. Assessment & Plan (1) Gastroenteritis Status: Acute - Assessment and Plan (Free Text) Assessment: A/P- 61 year old female with h/o fibromyalgia and HTN admitted with abdominal pain and n/v and diarrhea and febrile. etiology of the Gi complaints could be secondary to viral gastroenteritis. However in light of recent use of antibiotics advise to also rule out c.diff. abd Ct report- diverticulosis, no diverticulitis. plan- check stool cx. check stool O and P. check c.diff Ag. check blood cx x 2. check UA and urine cx. start empiric oral flagyl pending further results. hold IV abx pending further results. check cxr as well. Thank you for allowing me to take part in the care of this patient.
[2017-04-21] MEDS: HYDROCODONE PO PRN ×2 (11:13→20:46)
[2017-04-21] MEDS: ACETAMINOPHEN PO PRN ×2 (11:13→20:46)
[2017-04-21] MEDS ORDERED: Alum-Mag Hydrox-Simethicone Susp (30 mL) PO PRN (14:07)
--- NOTE | 2017-04-21 19:04 | CP.PCM.CON ---
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 NEW ONSET OF WITNESSED Sz - NARCOTIC RELATED / HYPOXIA OR HYPOPERFUSION CHECK MRI - NO AED EEG NO SEIZURE NEEDS PSG FOR DILIA /CSA - NARCOTIC CAN NOT BE CONTINUED UNLESS SRBD IS FIXED DISCUSSED WITH HER AND HER THEY WILL HER NEUROLOGIST IN [place] Past Patient History - Past Medical History & Family History Past Medical History?: Yes - Past Social History Alcohol: None Drugs: Denies - CARDIAC Hx Hypertension: Yes - MUSCULOSKELETAL/RHEUMATOLOGICAL Hx Falls: Yes - PSYCHIATRIC Hx Substance Use: No - SURGICAL HISTORY Hx Cholecystectomy: Yes - ANESTHESIA Hx Anesthesia: Yes Hx Anesthesia Reactions: No Meds Allergies/Adverse Reactions: Allergies Allergy/AdvReac Type Severity Reaction Status Date / Time cefaclor [From [facility]] Allergy RASH Verified 04/20/17 11:06 - Medications Medications: Current Medications Acetaminophen (Tylenol 325mg Tab) 650 mg PO Q6 PRN PRN Reason: Fever >100.4 F Last Admin: 04/21/17 05:01 Dose: 650 mg Al Hydrox/Mg Hydrox/Simethicone (Maalox Plus 30 Ml) 30 ml PO Q4 PRN PRN Reason: Indigestion / Heartburn Last Admin: 04/21/17 14:27 Dose: 30 ml Ferrous Sulfate (Feosol) 325 mg PO DAILY [facility] Last Admin: 04/21/17 08:35 Dose: 325 mg Home Med (Hydrocodone/Acetaminophen [Hydrocodone-Acetamin 10-325 Mg]) 10 mg PO Q6 PRN PRN Reason: Pain, moderate (4-7) Last Admin: 04/21/17 11:13 Dose: 10 mg Home Med (Ropinirole Hcl [Ropinirole Hcl]) 1 mg PO Q12 [facility] Last Admin: 04/21/17 08:36 Dose: 1 mg Home Med (Tapentadol Hcl [Nucynta]) 100 mg PO Q8 [facility] Last Admin: 04/21/17 08:37 Dose: 100 mg Metronidazole (Flagyl 500mg/100ml Ns) 100 mls @ 100 mls/hr IVPB Q8 [facility] PRN Reason: Protocol Last Admin: 04/21/17 08:34 Dose: 100 mls/hr Ciprofloxacin (Cipro 400mg/200ml Dsw) 400 mg in 200 mls @ 200 mls/hr IVPB Q12 [facility] PRN Reason: Protocol Last Admin: 04/21/17 11:13 Dose: 200 mls/hr Lorazepam (Ativan) 2 mg IV Q4 PRN PRN Reason: Seizure activity Ondansetron HCl (Zofran Inj) 4 mg IVP Q4 PRN PRN Reason: Nausea/Vomiting Last Admin: 04/21/17 11:50 Dose: 4 mg Pantoprazole Sodium (Protonix Ec Tab) 40 mg PO DAILY [facility] Last Admin: 04/21/17 08:34 Dose: Not Given Results - Vital Signs Recent Vital Signs: Last Vital Signs Temp 100.3 F H 04/21/17 16:32 Pulse 80 04/21/17 16:32 Resp 16 04/21/17 16:32 BP 134/77 04/21/17 16:32 Pulse Ox 98 04/21/17 17:41 - Labs Result Diagrams: 04/21/17 07:39 04/21/17 07:39 Labs: Laboratory Results - last 24 hr 04/20/17 04/21/17 04/21/17 23:55 04:20 04:20 WBC RBC Hgb Hct MCV MCH MCHC RDW Plt Count MPV Neut % (Auto) Lymph % (Auto) [place] % (Auto) Eos % (Auto) Baso % (Auto) Neut # Lymph # [place] # Eos # Baso # ESR 18 Sodium Potassium Chloride Carbon Dioxide Anion Gap BUN Creatinine Est GFR ( Amer) Est GFR (Non-Af Amer) Random Glucose Calcium Magnesium 1.7 Total Bilirubin AST ALT Alkaline Phosphatase C-React Prot High Sens 4.54 H Total Protein Albumin Globulin Albumin/Globulin Ratio Free T4 Free T3 pg/mL TSH 3rd Generation 0.26 L Prolactin 04/21/17 04/21/17 04/21/17 04:20 07:39 07:39 WBC 8.2 RBC 4.14 Hgb 12.8 Hct 38.3 MCV 92.4 MCH 31.0 MCHC 33.5 RDW 12.5 Plt Count 147 MPV 8.9 Neut % (Auto) 84.6 H Lymph % (Auto) 7.0 L [place] % (Auto) 8.3 Eos % (Auto) 0.0 Baso % (Auto) 0.1 Neut # 6.9 Lymph # 0.6 L [place] # 0.7 Eos # 0.0 Baso # 0.0 ESR Sodium 130 L Potassium 3.5 L Chloride 96 L Carbon Dioxide 26 Anion Gap 12 BUN 9 Creatinine 0.5 L Est GFR ( Amer) > 60 Est GFR (Non-Af Amer) > 60 Random Glucose 151 H Calcium 8.3 L Magnesium Total Bilirubin 0.8 AST 22 ALT 33 Alkaline Phosphatase 44 C-React Prot High Sens Total Protein 6.9 Albumin 3.9 Globulin 3.0 Albumin/Globulin Ratio 1.3 Free T4 Free T3 pg/mL 2.00 L TSH 3rd Generation 0.13 L Prolactin 5.0 04/21/17 07:39 WBC RBC Hgb Hct MCV MCH MCHC RDW Plt Count MPV Neut % (Auto) Lymph % (Auto) [place] % (Auto) Eos % (Auto) Baso % (Auto) Neut # Lymph # [place] # Eos # Baso # ESR Sodium Potassium Chloride Carbon Dioxide Anion Gap BUN Creatinine Est GFR ( Amer) Est GFR (Non-Af Amer) Random Glucose Calcium Magnesium Total Bilirubin AST ALT Alkaline Phosphatase C-React Prot High Sens Total Protein Albumin Globulin Albumin/Globulin Ratio Free T4 0.73 L Free T3 pg/mL TSH 3rd Generation Prolactin
[2017-04-21 23:57] LABS: SQUAMOUS EPITHIAL 1 /hpf (0-5); URINE BACTERIA RARE (<OCC); URINE BILIRUBIN NEGATIVE (NEGATIVE); URINE BLOOD MODERATE (NEGATIVE); URINE CLARITY SLIGHTY-CLOUDY (Clear); URINE COLOR YELLOW (YELLOW); URINE GLUCOSE (UA) 50 mg/dL (Normal); URINE LEUKOCYTE ESTERASE TRACE Leu/uL (Negative); URINE NITRATE NEGATIVE (NEGATIVE); URINE PROTEIN NEGATIVE (NEGATIVE); URINE UROBILINOGEN 0.2-1.0 mg/dL (0.2-1.0)
--- NOTE | 2017-04-22 00:52 | CP.PCM.PN ---
Subjective - Date & Time of Evaluation Date of Evaluation: 04/22/17 Time of Evaluation: 00:50 - Subjective Subjective: Called by Dr. Torres to assess patient due to concern by her family, and multiple calls made to him. Patient is awake and alert, though somewhat confused. Family members at bedside with concerns about her fever, and possible 'withdrawal' symptoms. Family also concerned that because of confusion, she will get up pull out IV, fall, etc. Patient vital signs are all WNL aside from fever. No notable acute findings on physical exam aside from confusion. A/P: -Increase freq of vital sign checks; add motrin PRN for breakthrough fevers -1:1 for confusion -Patient is already on a significant amount of narcotics, will not add any further narcotics at this point Objective - Vital Signs/Intake and Output Vital Signs (last 24 hours): Temp Pulse Resp BP Pulse Ox 101.7 F H 85 18 132/80 96 04/22/17 00:42 04/22/17 00:42 04/22/17 00:42 04/22/17 00:42 04/22/17 00:42 Intake and Output: 04/21/17 04/22/17 18:59 06:59 Intake Total 2000 Output Total 3 Balance 1996 - Medications Medications: Current Medications Acetaminophen (Tylenol 325mg Tab) 650 mg PO Q6 PRN PRN Reason: Fever >100.4 F Last Admin: 04/21/17 05:01 Dose: 650 mg Al Hydrox/Mg Hydrox/Simethicone (Maalox Plus 30 Ml) 30 ml PO Q4 PRN PRN Reason: Indigestion / Heartburn Last Admin: 04/21/17 14:27 Dose: 30 ml Ferrous Sulfate (Feosol) 325 mg PO DAILY [facility] Last Admin: 04/21/17 08:35 Dose: 325 mg Home Med (Hydrocodone/Acetaminophen [Hydrocodone-Acetamin 10-325 Mg]) 10 mg PO Q6 PRN PRN Reason: Pain, moderate (4-7) Last Admin: 04/21/17 20:46 Dose: 10 mg Home Med (Ropinirole Hcl [Ropinirole Hcl]) 1 mg PO Q12 [facility] Last Admin: 04/21/17 20:47 Dose: 1 mg Home Med (Tapentadol Hcl [Nucynta]) 100 mg PO Q8 [facility] Last Admin: 04/21/17 19:05 Dose: 100 mg Ibuprofen (Motrin Tab) 600 mg PO Q6 PRN PRN Reason: fever > 100.4 Lorazepam (Ativan) 2 mg IV Q4 PRN PRN Reason: Seizure activity Metronidazole (Flagyl) 500 mg PO Q8 [facility] PRN Reason: Protocol Last Admin: 04/22/17 00:31 Dose: 500 mg Ondansetron HCl (Zofran Inj) 4 mg IVP Q4 PRN PRN Reason: Nausea/Vomiting Last Admin: 04/21/17 11:50 Dose: 4 mg Pantoprazole Sodium (Protonix Ec Tab) 40 mg PO DAILY [facility] Last Admin: 04/21/17 08:34 Dose: Not Given - Labs Labs: 04/21/17 07:39 04/21/17 07:39
[2017-04-22] MEDS: TAPENTADOL HCL 100 MG PO SCH ×4 (01:22→22:50)
--- NOTE | 2017-04-22 01:25 | CP.PCM.PN ---
Subjective - Date & Time of Evaluation Date of Evaluation: 04/21/17 Time of Evaluation: 19:10 Objective - Vital Signs/Intake and Output Vital Signs (last 24 hours): Temp Pulse Resp BP Pulse Ox 101.5 F H 85 18 132/80 96 04/22/17 01:02 04/22/17 00:42 04/22/17 00:42 04/22/17 00:42 04/22/17 00:42 Intake and Output: 04/21/17 04/22/17 18:59 06:59 Intake Total 1999 Output Total 3 Balance 1996 - Medications Medications: Current Medications Acetaminophen (Tylenol 325mg Tab) 650 mg PO Q6 PRN PRN Reason: Fever >100.4 F Last Admin: 04/21/17 05:01 Dose: 650 mg Al Hydrox/Mg Hydrox/Simethicone (Maalox Plus 30 Ml) 30 ml PO Q4 PRN PRN Reason: Indigestion / Heartburn Last Admin: 04/21/17 14:27 Dose: 30 ml Ferrous Sulfate (Feosol) 325 mg PO DAILY [facility] Last Admin: 04/21/17 08:35 Dose: 325 mg Home Med (Hydrocodone/Acetaminophen [Hydrocodone-Acetamin 10-325 Mg]) 10 mg PO Q6 PRN PRN Reason: Pain, moderate (4-7) Last Admin: 04/21/17 20:46 Dose: 10 mg Home Med (Ropinirole Hcl [Ropinirole Hcl]) 1 mg PO Q12 [facility] Last Admin: 04/21/17 20:47 Dose: 1 mg Home Med (Tapentadol Hcl [Nucynta]) 100 mg PO Q8 [facility] Last Admin: 04/22/17 01:22 Dose: 100 mg Ibuprofen (Motrin Tab) 600 mg PO Q6 PRN PRN Reason: fever > 100.4 Last Admin: 04/22/17 01:02 Dose: 600 mg Lorazepam (Ativan) 2 mg IV Q4 PRN PRN Reason: Seizure activity Metronidazole (Flagyl) 500 mg PO Q8 [facility] PRN Reason: Protocol Last Admin: 04/22/17 00:31 Dose: 500 mg Ondansetron HCl (Zofran Inj) 4 mg IVP Q4 PRN PRN Reason: Nausea/Vomiting Last Admin: 04/21/17 11:50 Dose: 4 mg Pantoprazole Sodium (Protonix Ec Tab) 40 mg PO DAILY [facility] Last Admin: 04/21/17 08:34 Dose: Not Given - Labs Labs: 04/21/17 07:39 04/21/17 07:39 Assessment and Plan (1) Acute gastroenteritis Status: Acute (2) Chronic pain syndrome Status: Chronic (3) Witnessed seizure Status: Acute (4) DILIA (obstructive sleep apnea) Status: Chronic
--- NOTE | 2017-04-22 03:20 | CON ---
DATE: LOCATION: The patient is in room #416. ATTENDING PHYSICIAN: Dr. Farnsworth. REASON FOR THE CONSULTATION: New onset of seizure and chronic pain syndrome. CHIEF COMPLAINT: The patient has been visiting [place] from [place], developing a severe pain, which has not been controlled with her current medication and she was not feeling good with her stomach pain. At the emergency room, the patient did have a witnessed seizure activity. From a neurological point of view, I was called to evaluate her for further management. HISTORY OF PRESENT ILLNESS: Ms. Barbara Jeffrey is a 61-year-old right-handed female, who carries a diagnosis of fibromyalgia of more than 6 years, being followed by neurologist, being on multiple medications, who failed multiple non-arthritic medications lately. She is on dual narcotic medications, presenting with vomiting, diarrhea, and severe abdominal pain. In the emergency room, the patient did have loss of consciousness with facial twitching and arm twitching, which lasted for about a minute or so, not associating with bowel and bladder incontinence or bitten tongue. The patient found to have slight confusion following this. The patient did not have any seizures in the past. PAST MEDICAL HISTORY: Fibromyalgia, herniated disc, and hiatal hernia. PERSONAL HISTORY: No history of smoking or alcohol use. REVIEW OF SYSTEMS: A 13-point systems had been reviewed. From neuro, new onset of seizure. MEDICATIONS: Nitrostat, pantoprazole, Soma, ropinirole, Nucynta, and hydrocodone. PHYSICAL EXAMINATION: VITAL SIGNS: Blood pressure 134/77, mean arterial pressure of 96, respiratory rate 16, temperature afebrile. NECK: Supple. No carotid bruits. HEART: Heart sounds irregular. CHEST: Fair air entry. EXTREMITIES: No edema in legs. NEUROLOGICAL EXAMINATION: MENTAL STATUS EXAMINATION: She is awake, alert, oriented to person, place, and time. Speech is clear. Naming, repetition, fluency, comprehension all within normal. CRANIAL NERVE EXAMINATION: Visual agee intact. Pupils react to light. Extraocular movement normal. No nystagmus. No facial sensory deficit. No facial asymmetry. Hearing is normal. Tongue is midline. Good gag. MOTOR EXAMINATION: On an outstretched hand with eyes closed, no drift noted. Power is symmetric on either side. Deep tendon reflexes: Biceps, brachioradialis, triceps, knee are 2+; both ankles are 1+. Plantars are equivocal response on both sides. SENSORY EXAMINATION: Responds to pain symmetrically on both sides. Mild sensory neuropathy noted in both lower extremities, manifesting with decreased vibration and temperature sense. COORDINATION: [id number]-[id number] test is intact. GAIT: Deferred at this time. DIAGNOSTIC DATA: The electroencephalogram reviewed by me showed alpha and delta waves consistent with possible chronic pain management drug-induced electrographic findings. However, there is no focal slowing or paroxysmal activities noted. CT of the head, no acute pathology noted. LABORATORY DATA: WBC 8.2, hemoglobin 12.8, hematocrit 38.3, platelets Sodium 130, potassium 3.5, chloride 96, bicarbonate 26, BUN 9, creatinine 0.5, GFR more than 60, glucose 151, calcium 8.3. Prolactin 5.0. TSH is 0.13. Urine tox screen showed opioid positive. Alcohol level less than 10. CONCLUSION: Ms. Barbara Jeffrey has been presenting with fibromyalgia, being on narcotics, known diagnoses of sleep apnea, noncompliant with the continuous positive airway pressure, presenting with new onset of seizure. New seizure stroke Vs mass should be ruled out as well. The current examination shows mild sensory motor neuropathy. RECOMMENDATIONS: 1. All narcotics should be tapered off slowly with her neurologist when she is traveling back to [place]. 2. No antiepileptic drugs needed at present. 3. The patient should have MRI of the brain to rule out any structural cause that could explain her seizures. 4. Improve her hydration. 5. The patient should have a polysomnogram again to rule in or rule out central sleep apnea versus obstructive sleep apnea. The patient should not be on narcotics, which should not be continued unless the sleep apnea is fixed. The patient's condition had been well. Discussed with her as well as her . The patient will be taking care of this problem when she reaches [place]. If and when she is medically stable for next 24-hour period, provided MRI is negative for mass or stroke, the patient can be discharged from neurological point of view. Willie Ling MD [email or web address]
[2017-04-22 06:24] LABS: BASO % 0.1 % (0.0-2.0); HEMOGLOBIN 12.7 g/dL (12.0-16.0); LYMPH # 0.9 K/uL (1.0-4.3); MEAN CELL VOLUME 92.3 fl (81.0-99.0); MEAN CORPUSCULAR HEMOGLOBIN 31.4 pg (27.0-31.0); MEAN PLATELET VOLUME 8.7 fl (7.2-11.7); MONO % 7.2 % (0.0-10.0); NEUT # 12.3 K/uL (1.8-7.0); NEUT % 86.7 % (50.0-75.0); RBC 4.04 Mil/uL (3.80-5.20); RED CELL DISTRIBUTION WIDTH 12.5 % (11.5-14.5); WHITE BLOOD COUNT 14.2 K/uL (4.8-10.8)
[2017-04-22 06:26] LABS: ALB/GLOB RATIO 1.4 (1.0-2.1); ALBUMIN 4.1 g/dL (3.5-5.0); ALT/SGPT 43 U/L (9-52); AST/SGOT 30 U/L (14-36); BLOOD UREA NITROGEN 8 mg/dl (7-17); CALCIUM 8.1 mg/dL (8.4-10.2); GFR AFRICAN-AMERICAN > 60; GFR NON-AFRICAN AMERICAN > 60
--- NOTE | 2017-04-22 08:26 | EEG ---
DATE: This is a 16-channel electroencephalogram of awake and drowsy adult. During the study, photic stimulation was performed. Hyperventilation was not performed. The resting electroencephalogram consists of 9 to 10 Hz alpha activities on delta activities, seen diffusely in bilateral cortical leads. At times there is slow theta activities noted. Some movement or muscle artifact contaminated the background rhythm. The photic stimulation did not evoke driving response noted at 2 to 20 Hz. IMPRESSION: This is an abnormal electroencephalogram because of diffuse slow activities and alpha and delta activities suggestive of possible medication-induced electrographic changes. However, during the study, neither focal slowing nor paroxysmal activities noted. Willie Ling MD
[2017-04-22] MEDS: ROPINIROLE HCL 1 MG PO SCH ×2 (08:54→22:33)
[2017-04-22] MEDS: Pantoprazole 40 mg EC Tab PO SCH (08:55)
[2017-04-22] MEDS ORDERED: Potassium Chloride 20 mEq ER Tab PO ONE ×3 (09:56→16:15)
[2017-04-22] MEDS ORDERED: Sodium Chloride 0.9% 1,000 ML IV SCH ×2 (10:00→20:13)
[2017-04-22 10:39] LABS: C DIFF TOXIN A B POSITIVE ANTIGEN (NEGATIVE)
[2017-04-22] MEDS ORDERED: Potassium Chloride 20 mEq ER Tab PO SCH (11:45)
[2017-04-22] MEDS ORDERED: Sodium Chloride 0.9% 500 ML IV ONE ×4 (12:27→20:13)
[2017-04-22] MEDS ORDERED: Potassium Chl 20 mEq in NS 1,000 ML IV SCH ×2 (16:15→20:13)
[2017-04-22 16:41] LABS: ABG ALLEN TEST YES; ARTERIAL BLOOD GAS HCO3 27.1 mmol/L (21-28); ARTERIAL BLOOD GAS O2 SAT 98.8 % (95-98); ARTERIAL BLOOD GAS PCO2 34 mm/Hg (35-45); ARTERIAL BLOOD GAS PH 7.49 (7.35-7.45); ARTERIAL BLOOD GAS PO2 70 mm/Hg (80-100); ARTERIAL BLOOD GAS TCO2 26.9 mmol/L (22-28)
--- NOTE | 2017-04-22 17:47 | MRI ---
PROCEDURE: MRI BRAIN WITHOUT CONTRAST HISTORY: r/o mass Vs stroke COMPARISON: Unenhanced Head CT 04/20/2017. TECHNIQUE: Multiplanar, multisequence MR images of the brain were obtained without intravenous contrast enhancement. FINDINGS: HEMORRHAGE: None DWI: Restricted diffusion is identified at the inter pole right temporal lobe extending into the temporal and frontal operculum ir lerma and the inferior right frontal lobe and potentially migrating into the medial gyri of the inferior right frontal lobe as well compatible with an acute subacute right MCA distribution infarct, anterior and middle sub segments. BRAIN PARENCHYMA: Limited mass-effect partially effaces sulci in the same distribution of the restricted diffusion of the anterior and middle inferior right MCA distribution infarction noted above. No midline shift or mass effect is exerted on the brainstem. No definitive intracranial hemorrhage is identified. Motion artifacts degrade the quality this examination including diffusion-weighted imaging. Minimal diffuse cerebral atrophy is identified as well as limited chronic microangiopathy in the periventricular white matter and occasional subcortical white matter of the bilateral frontal lobes. Empty sella noted. VENTRICLES: Unremarkable. No hydrocephalus. CRANIUM: Unremarkable. ORBITS: Grossly unremarkable. PARANASAL SINUSES/MASTOIDS: Clear VASCULAR SYSTEM: Skull base flow voids intact. OTHER FINDINGS: None. IMPRESSION: Sub distribution right MCA acute/ subacute infarct affecting the right frontal and temporal lobes as discussed above. Limited local mass is appreciate without midline shift evident or significant impression upon the brainstem. Limited age-related neuro degenerative changes are identified which appear age-appropriate.
--- NOTE | 2017-04-22 17:48 | CP.CCUPN ---
CCU Subjective - Physician Review Events Since Last Encounter (Free Text): 04/22/17 The patient was Seen/interviewed and examined by me at the bedside, Medical records reviewed and Management issues were discussed and formulated with the house staff. 61 Years old Female with PMHx of HTN, Hyperlipidemia, Fibromyalgia and obstructive sleep apnea Who presents to the Emergency department on 04/20 complaining of abdominal pain, vomiting and diarrhea x4 days. The patients states that she had multiple episodes of non bloody, non bilious vomit and watery, non bloody diarrhea associated with epigastric pain but was still able to tolerate PO. The patient also states that she felt weak and was going to pass out while driving in a car day prior to admission, No LOC However as per records those who witnessed her pass out state that there was no convulsions or seizure like activity. Patient also reports that headaches are typical for her as she was diagnosed with migraine headaches in the past. Patient admitted to the telemetry with Altered mental status, Chronic pain syndrome and Witnessed seizure Today ICU called for worsening MS, she is more disoriented, delirious, Patient will get Head MRI and transferred to ICU for further neuro and sepsis work up 04/22/17 20:16 Family meeting held with one son and two more son on the phone, We reviewed the rationale, risks, and alternatives to treatment with the patient. The patients family was given the opportunity to ask many questions which were answered to his satisfaction. The MRI result reviewed with neurology. CCU Objective - Vital Signs / Intake & Output Vital Signs (Last 4 hours): Vital Signs Temp Pulse Resp BP Pulse Ox 04/22/17 16:08 99.7 F H 87 20 151/85 H 98 - Medications Active Medications: Active Medications Generic Name Dose Route Start Last Admin Trade Name Freq PRN Reason Stop Dose Admin Acetaminophen 650 mg 04/20/17 19:10 04/22/17 11:52 Tylenol 325mg Tab PO 650 mg Q6 PRN Administration Fever >100.4 F Al Hydrox/Mg Hydrox/Simethicone 30 ml 04/21/17 14:07 04/21/17 14:27 Maalox Plus 30 Ml PO 30 ml Q4 PRN Administration Indigestion / Heartburn Ferrous Sulfate 325 mg 04/21/17 09:00 04/22/17 09:03 Feosol PO 325 mg DAILY MANDI Administration Home Med 10 mg 04/20/17 22:00 04/21/17 20:46 Hydrocodone/Acetaminophen [Hydrocodone-Acetamin 10-325 Mg] PO 10 mg Q6 PRN Administration Pain, moderate (4-7) Home Med 1 mg 04/20/17 21:00 04/22/17 08:54 Ropinirole Hcl [Ropinirole Hcl] PO 1 mg Q12 MANDI Administration Home Med 100 mg 04/21/17 01:00 04/22/17 08:55 Tapentadol Hcl [Nucynta] PO 100 mg Q8 MANDI Administration Sodium Chloride 1,000 mls @ 125 mls/hr 04/22/17 10:00 Sodium Chloride 0.9% IV 04/23/17 09:56 .Q8H MANDI Potassium Chloride 50 mls @ 50 mls/hr 04/22/17 17:00 Potassium Cl 10meq/50ml Sterile Water IVPB 04/22/17 19:59 Q1 MANDI Potassium Chloride/Sodium Chloride 1,000 mls @ 100 mls/hr 04/22/17 16:15 Potassium Chl 20 Meq In Ns IV 04/23/17 16:17 .Q10H MANDI Ibuprofen 600 mg 04/22/17 00:45 04/22/17 08:55 Motrin Tab PO 600 mg Q6 PRN Administration fever > 100.4 Lorazepam 2 mg 04/20/17 18:23 Ativan IV Q4 PRN Seizure activity Metronidazole 500 mg 04/21/17 20:15 04/22/17 08:54 Flagyl PO 500 mg Q8 MANDI Administration Protocol Ondansetron HCl 4 mg 04/21/17 10:42 04/21/17 11:50 Zofran Inj IVP 4 mg Q4 PRN Administration Nausea/Vomiting Pantoprazole Sodium 40 mg 04/21/17 09:00 04/22/17 08:55 Protonix Ec Tab PO 40 mg DAILY MANDI Administration Potassium Chloride 40 meq 04/22/17 11:45 04/22/17 11:57 K-Dur 20 Meq Er Tab PO 40 meq DAILY MANDI Administration - Patient Studies Lab Studies: Microbiology Studies 04/20/17 11:55 Blood Culture - Preliminary Blood-Venous NO GROWTH AFTER 48 HOURS 04/21/17 07:50 Blood Culture - Preliminary Blood NO GROWTH AFTER 24 HOURS Lab Studies 04/22/17 04/22/17 04/22/17 Range/Units 16:08 10:33 05:40 WBC (4.8-10.8) K/uL RBC (3.80-5.20) Mil/uL Hgb (12.0-16.0) g/dL Hct (34.0-47.0) % MCV (81.0-99.0) fl MCH (27.0-31.0) pg MCHC (33.0-37.0) g/dL RDW (11.5-14.5) % Plt Count (130-400) K/uL MPV (7.2-11.7) fl Neut % (Auto) (50.0-75.0) % Lymph % (Auto) (20.0-40.0) % [facility] % (Auto) (0.0-10.0) % Eos % (Auto) (0.0-4.0) % Baso % (Auto) (0.0-2.0) % Neut # (1.8-7.0) K/uL Lymph # (1.0-4.3) K/uL [facility] # (0.0-0.8) K/uL Eos # (0.0-0.7) K/uL Baso # (0.0-0.2) K/uL pCO2 34 L (35-45) mm/Hg pO2 70 L (80-100) mm/Hg HCO3 27.1 (21-28) mmol/L ABG pH 7.49 H (7.35-7.45) ABG Total CO2 26.9 (22-28) mmol/L ABG O2 Saturation 98.8 H (95-98) % ABG Base Excess 2.8 (-2.0-3.0) mmol/L Randy Test Yes ABG Potassium 2.9 L (3.6-5.2) mmol/L A-a O2 Difference 37.0 mm/Hg Glucose 122 H (65-105) mg/dL Lactate 0.7 (0.7-2.1) mmol/L FiO2 21.0 % Sodium 123.0 L (132-148) mmol/l Potassium (3.6-5.0) MMOL/L Chloride 92.0 L (98-107) mmol/L Carbon Dioxide (22-30) mmol/L Anion Gap (10-20) BUN (7-17) mg/dl Creatinine (0.7-1.2) mg/dl Est GFR ( Amer) Est GFR (Non-Af Amer) POC Glucose (mg/dL) (65-110) mg/dL Random Glucose (65-105) mg/dL Serum Osmolality 257 L (272-300) mosm/kg Calcium (8.4-10.2) mg/dL Magnesium (1.6-2.3) MG/DL Total Bilirubin (0.2-1.3) mg/dl AST (14-36) U/L ALT (9-52) U/L Alkaline Phosphatase (38-126) U/L Total Protein (6.3-8.2) G/DL Albumin (3.5-5.0) g/dL Globulin (2.2-3.9) gm/dL Albumin/Globulin Ratio (1.0-2.1) Arterial Blood Potassium 2.9 L (3.6-5.2) mmol/L Urine Color (YELLOW) Urine Clarity (Clear) Urine pH (5.0-8.0) Ur Specific [place] (1.003-1.030) Urine Protein (NEGATIVE) mg/dL Urine Glucose (UA) (Normal) mg/dL Urine Ketones (NEGATIVE) mg/dL Urine Blood (NEGATIVE) Urine Nitrate (NEGATIVE) Urine Bilirubin (NEGATIVE) Urine Urobilinogen (0.2-1.0) mg/dL Ur Leukocyte Esterase (Negative) Joe/uL Urine RBC (Auto) (0-3) /hpf Urine Microscopic WBC (0-5) /hpf Ur Squamous Epith Cells (0-5) /hpf Urine Bacteria (<OCC) Acetaminophen < 10.0 L (10.0-30.0) ug/ml C. difficile Ag & Toxin (NEGATIVE) 04/22/17 04/22/17 04/21/17 Range/Units 05:40 05:40 23:00 WBC 14.2 H D (4.8-10.8) K/uL RBC 4.04 (3.80-5.20) Mil/uL Hgb 12.7 (12.0-16.0) g/dL Hct 37.2 (34.0-47.0) % MCV 92.3 (81.0-99.0) fl MCH 31.4 H (27.0-31.0) pg MCHC 34.0 (33.0-37.0) g/dL RDW 12.5 (11.5-14.5) % Plt Count 129 L (130-400) K/uL MPV 8.7 (7.2-11.7) fl Neut % (Auto) 86.7 H (50.0-75.0) % Lymph % (Auto) 6.0 L (20.0-40.0) % [facility] % (Auto) 7.2 (0.0-10.0) % Eos % (Auto) 0.0 (0.0-4.0) % Baso % (Auto) 0.1 (0.0-2.0) % Neut # 12.3 H (1.8-7.0) K/uL Lymph # 0.9 L (1.0-4.3) K/uL [facility] # 1.0 H (0.0-0.8) K/uL Eos # 0.0 (0.0-0.7) K/uL Baso # 0.0 (0.0-0.2) K/uL pCO2 (35-45) mm/Hg pO2 (80-100) mm/Hg HCO3 (21-28) mmol/L ABG pH (7.35-7.45) ABG Total CO2 (22-28) mmol/L ABG O2 Saturation (95-98) % ABG Base Excess (-2.0-3.0) mmol/L Randy Test ABG Potassium (3.6-5.2) mmol/L A-a O2 Difference mm/Hg Glucose (65-105) mg/dL Lactate (0.7-2.1) mmol/L FiO2 % Sodium 127 L (132-148) mmol/l Potassium 3.2 L (3.6-5.0) MMOL/L Chloride 92 L (98-107) mmol/L Carbon Dioxide 27 (22-30) mmol/L Anion Gap 11 (10-20) BUN 8 (7-17) mg/dl Creatinine 0.5 L (0.7-1.2) mg/dl Est GFR ( Amer) > 60 Est GFR (Non-Af Amer) > 60 POC Glucose (mg/dL) (65-110) mg/dL Random Glucose 118 H (65-105) mg/dL Serum Osmolality (272-300) mosm/kg Calcium 8.1 L (8.4-10.2) mg/dL Magnesium 2.0 (1.6-2.3) MG/DL Total Bilirubin 0.8 (0.2-1.3) mg/dl AST 30 (14-36) U/L ALT 43 (9-52) U/L Alkaline Phosphatase 51 (38-126) U/L Total Protein 7.0 (6.3-8.2) G/DL Albumin 4.1 (3.5-5.0) g/dL Globulin 3.0 (2.2-3.9) gm/dL Albumin/Globulin Ratio 1.4 (1.0-2.1) Arterial Blood Potassium (3.6-5.2) mmol/L Urine Color Yellow (YELLOW) Urine Clarity Slighty-cloudy (Clear) Urine pH 6.0 (5.0-8.0) Ur Specific [place] 1.012 (1.003-1.030) Urine Protein Negative (NEGATIVE) mg/dL Urine Glucose (UA) 50 (Normal) mg/dL Urine Ketones 80 (NEGATIVE) mg/dL Urine Blood Moderate (NEGATIVE) Urine Nitrate Negative (NEGATIVE) Urine Bilirubin Negative (NEGATIVE) Urine Urobilinogen 0.2-1.0 (0.2-1.0) mg/dL Ur Leukocyte Esterase Trace (Negative) Joe/uL Urine RBC (Auto) 14 H (0-3) /hpf Urine Microscopic WBC 3 (0-5) /hpf Ur Squamous Epith Cells 1 (0-5) /hpf Urine Bacteria Rare (<OCC) Acetaminophen (10.0-30.0) ug/ml C. difficile Ag & Toxin (NEGATIVE) 04/21/17 04/21/17 Range/Units 22:07 09:20 WBC (4.8-10.8) K/uL RBC (3.80-5.20) Mil/uL Hgb (12.0-16.0) g/dL Hct (34.0-47.0) % MCV (81.0-99.0) fl MCH (27.0-31.0) pg MCHC (33.0-37.0) g/dL RDW (11.5-14.5) % Plt Count (130-400) K/uL MPV (7.2-11.7) fl Neut % (Auto) (50.0-75.0) % Lymph % (Auto) (20.0-40.0) % [facility] % (Auto) (0.0-10.0) % Eos % (Auto) (0.0-4.0) % Baso % (Auto) (0.0-2.0) % Neut # (1.8-7.0) K/uL Lymph # (1.0-4.3) K/uL [facility] # (0.0-0.8) K/uL Eos # (0.0-0.7) K/uL Baso # (0.0-0.2) K/uL pCO2 (35-45) mm/Hg pO2 (80-100) mm/Hg HCO3 (21-28) mmol/L ABG pH (7.35-7.45) ABG Total CO2 (22-28) mmol/L ABG O2 Saturation (95-98) % ABG Base Excess (-2.0-3.0) mmol/L Randy Test ABG Potassium (3.6-5.2) mmol/L A-a O2 Difference mm/Hg Glucose (65-105) mg/dL Lactate (0.7-2.1) mmol/L FiO2 % Sodium (132-148) mmol/l Potassium (3.6-5.0) MMOL/L Chloride (98-107) mmol/L Carbon Dioxide (22-30) mmol/L Anion Gap (10-20) BUN (7-17) mg/dl Creatinine (0.7-1.2) mg/dl Est GFR ( Amer) Est GFR (Non-Af Amer) POC Glucose (mg/dL) 125 H (65-110) mg/dL Random Glucose (65-105) mg/dL Serum Osmolality (272-300) mosm/kg Calcium (8.4-10.2) mg/dL Magnesium (1.6-2.3) MG/DL Total Bilirubin (0.2-1.3) mg/dl AST (14-36) U/L ALT (9-52) U/L Alkaline Phosphatase (38-126) U/L Total Protein (6.3-8.2) G/DL Albumin (3.5-5.0) g/dL Globulin (2.2-3.9) gm/dL Albumin/Globulin Ratio (1.0-2.1) Arterial Blood Potassium (3.6-5.2) mmol/L Urine Color (YELLOW) Urine Clarity (Clear) Urine pH (5.0-8.0) Ur Specific [place] (1.003-1.030) Urine Protein (NEGATIVE) mg/dL Urine Glucose (UA) (Normal) mg/dL Urine Ketones (NEGATIVE) mg/dL Urine Blood (NEGATIVE) Urine Nitrate (NEGATIVE) Urine Bilirubin (NEGATIVE) Urine Urobilinogen (0.2-1.0) mg/dL Ur Leukocyte Esterase (Negative) Joe/uL Urine RBC (Auto) (0-3) /hpf Urine Microscopic WBC (0-5) /hpf Ur Squamous Epith Cells (0-5) /hpf Urine Bacteria (<OCC) Acetaminophen (10.0-30.0) ug/ml C. difficile Ag & Toxin Positive antigen (NEGATIVE) Laboratory Results - last 24 hr 04/21/17 04/21/17 04/21/17 09:20 22:07 23:00 WBC RBC Hgb Hct MCV MCH MCHC RDW Plt Count MPV Neut % (Auto) Lymph % (Auto) [facility] % (Auto) Eos % (Auto) Baso % (Auto) Neut # Lymph # [facility] # Eos # Baso # pCO2 pO2 HCO3 ABG pH ABG Total CO2 ABG O2 Saturation ABG Base Excess Radny Test ABG Potassium A-a O2 Difference Glucose Lactate FiO2 Sodium Potassium Chloride Carbon Dioxide Anion Gap BUN Creatinine Est GFR ( Amer) Est GFR (Non-Af Amer) POC Glucose (mg/dL) 125 H Random Glucose Serum Osmolality Calcium Magnesium Total Bilirubin AST ALT Alkaline Phosphatase Total Protein Albumin Globulin Albumin/Globulin Ratio Arterial Blood Potassium Urine Color Yellow Urine Clarity Slighty-cloudy Urine pH 6.0 Ur Specific [place] 1.012 Urine Protein Negative Urine Glucose (UA) 50 Urine Ketones 80 Urine Blood Moderate Urine Nitrate Negative Urine Bilirubin Negative Urine Urobilinogen 0.2-1.0 Ur Leukocyte Esterase Trace Urine RBC (Auto) 14 H Urine Microscopic WBC 3 Ur Squamous Epith Cells 1 Urine Bacteria Rare Acetaminophen C. difficile Ag & Toxin Positive antigen 04/22/17 04/22/17 04/22/17 05:40 05:40 05:40 WBC 14.2 H D RBC 4.04 Hgb 12.7 Hct 37.2 MCV 92.3 MCH 31.4 H MCHC 34.0 RDW 12.5 Plt Count 129 L MPV 8.7 Neut % (Auto) 86.7 H Lymph % (Auto) 6.0 L [facility] % (Auto) 7.2 Eos % (Auto) 0.0 Baso % (Auto) 0.1 Neut # 12.3 H Lymph # 0.9 L [facility] # 1.0 H Eos # 0.0 Baso # 0.0 pCO2 pO2 HCO3 ABG pH ABG Total CO2 ABG O2 Saturation ABG Base Excess Randy Test ABG Potassium A-a O2 Difference Glucose Lactate FiO2 Sodium 127 L Potassium 3.2 L Chloride 92 L Carbon Dioxide 27 Anion Gap 11 BUN 8 Creatinine 0.5 L Est GFR ( Amer) > 60 Est GFR (Non-Af Amer) > 60 POC Glucose (mg/dL) Random Glucose 118 H Serum Osmolality Calcium 8.1 L Magnesium 2.0 Total Bilirubin 0.8 AST 30 ALT 43 Alkaline Phosphatase 51 Total Protein 7.0 Albumin 4.1 Globulin 3.0 Albumin/Globulin Ratio 1.4 Arterial Blood Potassium Urine Color Urine Clarity Urine pH Ur Specific [place] Urine Protein Urine Glucose (UA) Urine Ketones Urine Blood Urine Nitrate Urine Bilirubin Urine Urobilinogen Ur Leukocyte Esterase Urine RBC (Auto) Urine Microscopic WBC Ur Squamous Epith Cells Urine Bacteria Acetaminophen < 10.0 L C. difficile Ag & Toxin 04/22/17 04/22/17 10:33 16:08 WBC RBC Hgb Hct MCV MCH MCHC RDW Plt Count MPV Neut % (Auto) Lymph % (Auto) [facility] % (Auto) Eos % (Auto) Baso % (Auto) Neut # Lymph # [facility] # Eos # Baso # pCO2 34 L pO2 70 L HCO3 27.1 ABG pH 7.49 H ABG Total CO2 26.9 ABG O2 Saturation 98.8 H ABG Base Excess 2.8 Randy Test Yes ABG Potassium 2.9 L A-a O2 Difference 37.0 Glucose 122 H Lactate 0.7 FiO2 21.0 Sodium 123.0 L Potassium Chloride 92.0 L Carbon Dioxide Anion Gap BUN Creatinine Est GFR ( Amer) Est GFR (Non-Af Amer) POC Glucose (mg/dL) Random Glucose Serum Osmolality 257 L Calcium Magnesium Total Bilirubin AST ALT Alkaline Phosphatase Total Protein Albumin Globulin Albumin/Globulin Ratio Arterial Blood Potassium 2.9 L Urine Color Urine Clarity Urine pH Ur Specific [place] Urine Protein Urine Glucose (UA) Urine Ketones Urine Blood Urine Nitrate Urine Bilirubin Urine Urobilinogen Ur Leukocyte Esterase Urine RBC (Auto) Urine Microscopic WBC Ur Squamous Epith Cells Urine Bacteria Acetaminophen C. difficile Ag & Toxin Review of Systems - Cardiovascular Cardiovascular: absent: Acrocyanosis, Chest Pain, Chest Pain at Rest, Chest Pain with Activity, Diaphoresis, Edema, Pain Radiating to Arm/Neck/Jaw - Respiratory Respiratory: absent: Cough, Dyspnea, Hemoptysis, Dyspnea on Exertion, Wheezing - Gastrointestinal Gastrointestinal: Abdominal Pain, Diarrhea, Dyspepsia, Nausea, Vomiting - Neurological Neurological: Behavioral Changes, Confusion, Convulsions. absent: Abnormal Gait , Abnormal Movements, Abnormal Speech, Dizziness, Numbness, Focal Weakness Critical Care Progress Note - Extremities/Vascular Does the Patient have a Central Venous Catheter?: No Does the Patient need a Central Venous Catheter?: No Does the Patient have a [place] Catheter?: No Does the Patient need a [place] Catheter?: No - Nutrition Nutrition: Nutrition Category Date Time Status Liquid Diet [DIET] Diets 04/21/17 Breakfast Active Assessment/Plan (1) Altered mental status Current Visit: Yes Status: Acute Comment: Altered mental status likely Metabolic Encephalopathy Vs Medication Neuro consult Frequent neuro check Head MRI 1:1 constant observation (2) Severe sepsis Current Visit: Yes Status: Acute (3) C. difficile colitis Current Visit: Yes Status: Acute Comment: Metronidazole 500 mg PO Q8 MANDI Hydrations ID Consult (4) Dehydration Current Visit: Yes Status: Acute (5) Witnessed seizure Current Visit: Yes Status: Acute Priority: Low Comment: Neuro Consult Seizure precutions (6) Chronic pain syndrome Current Visit: Yes Status: Chronic Priority: Medium Comment: Vicodin PRN (7) Headache Current Visit: Yes Status: Acute (8) DILIA (obstructive sleep apnea) Current Visit: Yes Status: Chronic Priority: Low Comment: Nocturnal CPAP
[2017-04-22] MEDS: Potassium CL 10 MEQ/50 ML 50 ML IVPB SCH ×2 (18:08→22:04)
[2017-04-22 18:31] LABS: FECAL LEUKOCYTES NEGATIVE (NEGATIVE)
[2017-04-22 18:46] LABS: BASO % 0.2 % (0.0-2.0); HEMOGLOBIN 12.6 g/dL (12.0-16.0); LYMPH % 9.8 % (20.0-40.0); MEAN CELL VOLUME 92.1 fl (81.0-99.0); MEAN CORPUSCULAR HEMOGLOBIN 31.1 pg (27.0-31.0); MEAN CORPUSCULAR HGB CONC 33.8 g/dL (33.0-37.0); MEAN PLATELET VOLUME 8.6 fl (7.2-11.7); MONO # 1.4 K/uL (0.0-0.8); MONO % 12.8 % (0.0-10.0); NEUT # 8.2 K/uL (1.8-7.0); NEUT % 77.2 % (50.0-75.0); NRBC % 0.1 % (0.0-0.0); RBC 4.05 Mil/uL (3.80-5.20); RED CELL DISTRIBUTION WIDTH 12.2 % (11.5-14.5); WHITE BLOOD COUNT 10.6 K/uL (4.8-10.8)
[2017-04-22 18:58] LABS: ALB/GLOB RATIO 1.4 (1.0-2.1); ALBUMIN 3.8 g/dL (3.5-5.0); ALT/SGPT 42 U/L (9-52); AST/SGOT 32 U/L (14-36); BLOOD UREA NITROGEN 7 mg/dl (7-17); CALCIUM 8.3 mg/dL (8.4-10.2); GFR AFRICAN-AMERICAN > 60; GFR NON-AFRICAN AMERICAN > 60; MAGNESIUM 1.9 MG/DL (1.6-2.3)
[2017-04-22] MEDS ORDERED: HYDROCODONE PO PRN (20:13)
[2017-04-22] MEDS ORDERED: Alum-Mag Hydrox-Simethicone Susp (30 mL) PO PRN (20:13)
[2017-04-22] MEDS ORDERED: ACETAMINOPHEN PO PRN (20:13)
[2017-04-22] MEDS ORDERED: Chlorhexidine Gluconate 1 APPL/PKT TP ONE (21:16)
--- NOTE | 2017-04-22 23:33 | CP.PCM.PN ---
Subjective - Date & Time of Evaluation Date of Evaluation: 04/22/17 Time of Evaluation: 12:25 - Subjective Subjective: Seen and examined at the bed side. She has been confused and disoriented compared to yesterday. Patient has been spiking fever with Tmax 102.8. Diarrhea has slowed down. No Vomiting. Family has been requesting frequent Temperature check as the family attributing confusion to the fever. Had LITTLE yesterday but today, she denies LITTLE. Today, her History is not reliable as she is partially oriented. EEG was hypoactive brain activity. ID, Neurologist and Flow Coordinator input appreciated. I have discussed with her Daughter in detail, and will consider LP if Brain MRI brain is negative. Poor Po intake. On Watch for safety. Objective - Vital Signs/Intake and Output Vital Signs (last 24 hours): Temp Pulse Resp BP Pulse Ox 100.3 F H 99 H 20 128/93 H 100 04/22/17 18:00 04/22/17 18:00 04/22/17 18:00 04/22/17 18:00 04/22/17 18:00 Intake and Output: 04/22/17 04/23/17 18:59 06:59 Intake Total 2650 Balance 2650 - Medications Medications: Current Medications Acetaminophen (Tylenol 325mg Tab) 650 mg PO Q6 PRN PRN Reason: Fever >100.4 F Acetaminophen (Tylenol 650 Mg Supp) 650 mg AK Q4 PRN PRN Reason: Fever >100.4 F Last Admin: 04/22/17 21:00 Dose: 650 mg Al Hydrox/Mg Hydrox/Simethicone (Maalox Plus 30 Ml) 30 ml PO Q4 PRN PRN Reason: Indigestion / Heartburn Aspirin (Ecotrin) 81 mg PO DAILY [facility] Ferrous Sulfate (Feosol) 325 mg PO DAILY [facility] Home Med (Hydrocodone/Acetaminophen [Hydrocodone-Acetamin 10-325 Mg]) 10 mg PO Q6 PRN PRN Reason: Pain, moderate (4-7) Home Med (Ropinirole Hcl [Ropinirole Hcl]) 1 mg PO Q12 [facility] Home Med (Tapentadol Hcl [Nucynta]) 100 mg PO Q8@0500,1300,2100 MANDI Sodium Chloride (Sodium Chloride 0.9%) 1,000 mls @ 125 mls/hr IV .Q8H [facility] Stop: 04/23/17 09:56 Potassium Chloride/Sodium Chloride (Potassium Chl 20 Meq In Ns) 1,000 mls @ 100 mls/hr IV .Q10H [facility]I Stop: 04/23/17 16:17 Ibuprofen (Motrin Tab) 600 mg PO Q6 PRN PRN Reason: fever > 100.4 Lorazepam (Ativan) 2 mg IV Q4 PRN PRN Reason: Seizure activity Last Admin: 04/22/17 23:13 Dose: 2 mg Metronidazole (Flagyl) 500 mg PO Q8@0500,1300,2100 MANDI PRN Reason: Protocol Last Admin: 04/22/17 22:47 Dose: 500 mg Ondansetron HCl (Zofran Inj) 4 mg IVP Q4 PRN PRN Reason: Nausea/Vomiting Pantoprazole Sodium (Protonix Ec Tab) 40 mg PO DAILY [facility] Potassium Chloride (K-Dur 20 Meq Er Tab) 40 meq PO DAILY [facility] - Labs Labs: 04/22/17 18:37 04/22/17 18:37 - Constitutional Appears: No Acute Distress - Head Exam Head Exam: ATRAUMATIC, NORMAL INSPECTION, NORMOCEPHALIC - Eye Exam Eye Exam: EOMI, Normal appearance, PERRL Pupil Exam: NORMAL ACCOMODATION, PERRL - ENT Exam ENT Exam: Mucous Membranes Moist, Normal Exam - Neck Exam Neck Exam: Full ROM, Normal Inspection. absent: Lymphadenopathy - Respiratory Exam Respiratory Exam: Clear to Ausculation Bilateral, NORMAL BREATHING PATTERN. absent: Rales - Cardiovascular Exam Cardiovascular Exam: REGULAR RHYTHM, +S1, +S2. absent: Murmur - GI/Abdominal Exam GI & Abdominal Exam: Soft, Normal Bowel Sounds. absent: Tenderness - Extremities Exam Extremities Exam: Full ROM, Normal Capillary Refill, Normal Inspection. absent : Joint Swelling, Pedal Edema - Back Exam Back Exam: NORMAL INSPECTION. absent: CVA tenderness (L), CVA tenderness (R), paraspinal tenderness - Neurological Exam Neurological Exam: Alert, Awake, CN II-XII Intact Additional comments: Only partially oriented to place. - Psychiatric Exam Psychiatric exam: Anxious, Depressed. absent: Suicidal Ideation - Skin Skin Exam: Dry, Intact, Normal Color, Warm Assessment and Plan (1) Altered mental status Assessment & Plan: Metabolic Enecephalopathy (Medications, Sepsis) Vs Drug Withdrawal Vs ACute CVA Vs Seizure Vs Acute Delirium Blood Cultures No growth. Continue to Monitor Continue Flagyl IV may Need LP if MRI brain Negative MRI Result Pending ID and Neurologist onboard. Status: Acute (2) Acute gastroenteritis Assessment & Plan: Continue to Kishore Fever Hyponatremia, Dehydration Viral Vs Bacterial Continue Flagyl Continue IVF Tylenol PRN Cold Towel Cipro D/c by ID Continue to Monitor Status: Acute (3) Chronic pain syndrome Assessment & Plan: Continue Pain Meds PRN Status: Chronic (4) DILIA (obstructive sleep apnea) Assessment & Plan: CPAP Status: Chronic
[2017-04-23] MEDS: TAPENTADOL HCL 100 MG PO SCH ×3 (04:05→22:00)
[2017-04-23 05:46] LABS: HEMOGLOBIN 13.2 g/dL (12.0-16.0); MEAN CELL VOLUME 90.8 fl (81.0-99.0); MEAN CORPUSCULAR HEMOGLOBIN 31.6 pg (27.0-31.0); MEAN CORPUSCULAR HGB CONC 34.8 g/dL (33.0-37.0); RBC 4.2 Mil/uL (3.80-5.20); RED CELL DISTRIBUTION WIDTH 12.3 % (11.5-14.5); WHITE BLOOD COUNT 8.7 K/uL (4.8-10.8)
[2017-04-23 06:08] LABS: ALB/GLOB RATIO 1.3 (1.0-2.1); ALBUMIN 3.8 g/dL (3.5-5.0); ALT/SGPT 46 U/L (9-52); AST/SGOT 34 U/L (14-36); BLOOD UREA NITROGEN 5 mg/dl (7-17); CALCIUM 8.1 mg/dL (8.4-10.2); GFR AFRICAN-AMERICAN > 60; GFR NON-AFRICAN AMERICAN > 60
[2017-04-23 06:20] LABS: HDL CHOLESTEROL 39 MG/DL (30-70)
[2017-04-23 06:31] LABS: LDL CHOLESTEROL 105 mg/dL (0-129)
[2017-04-23] MEDS: ROPINIROLE HCL 1 MG PO SCH ×2 (09:00→21:51)
[2017-04-23] MEDS ORDERED: Pantoprazole 40 mg EC Tab PO SCH (09:00)
[2017-04-23] MEDS: Potassium Chloride 20 mEq ER Tab PO SCH ×3 (09:11→15:01)
--- NOTE | 2017-04-23 09:35 | RAD ---
PROCEDURE: CHEST RADIOGRAPH, 1 VIEW HISTORY: chf COMPARISON: None available. FINDINGS: LUNGS: Right mid/lower lung opacity versus overlying soft tissue. PLEURA: No pneumothorax or pleural fluid seen. CARDIOVASCULAR: Normal. OSSEOUS STRUCTURES: No significant abnormalities. VISUALIZED UPPER ABDOMEN: Right upper quadrant surgical clips. OTHER FINDINGS: None. IMPRESSION: Right mid/ lower lung opacity versus overlying soft tissue.
[2017-04-23] MEDS: Acyclovir 500 MG in Sodium Chloride 0.9% 100 ML IV SCH ×2 (10:00→18:17)
[2017-04-23] MEDS ORDERED: metroNIDAZOLE 500mg/100ml NS 100 ML IVPB SCH (10:15)
--- NOTE | 2017-04-23 11:26 | CP.PCM.PN ---
Subjective - Date & Time of Evaluation Date of Evaluation: 04/23/17 Time of Evaluation: 11:26 - Subjective Subjective: Infectious Disease Note- Patient seen and examined this morning in ICU. Pt. was transferred to ICU for closer monitoring , including more frequent temp checks since she has been spiking freqquent temps. Currently pt. is getting her TTE . pt. is resting comfortably in NAD. as per nurse she has been having frequent diarrhea x 6 overnight. was informed by nurse at ^ am that there was rectal temp of 104 but as per nursse as soon as pt. takes motrin temp comes back down to normal. denies any LITTLE. when she gets febrile as per nurse she does get some confusion but resolves as soon as temp normalizes. pt. denies any sob, denies any chest pain. still has on and off nausea. Objective - Vital Signs/Intake and Output Vital Signs (last 24 hours): Temp Pulse Resp BP Pulse Ox 103.5 F H 91 H 35 H 171/87 H 98 04/23/17 09:04 04/23/17 08:00 04/23/17 08:00 04/23/17 08:00 04/23/17 08:00 Intake and Output: 04/23/17 04/23/17 06:59 18:59 Intake Total 2350 Output Total 2900 Balance -550 - Medications Medications: Current Medications Acetaminophen (Tylenol 325mg Tab) 650 mg PO Q6 PRN PRN Reason: Fever >100.4 F Last Admin: 04/23/17 03:05 Dose: 650 mg Al Hydrox/Mg Hydrox/Simethicone (Maalox Plus 30 Ml) 30 ml PO Q4 PRN PRN Reason: Indigestion / Heartburn Atorvastatin Calcium (Lipitor) 40 mg PO DAILY [facility] Last Admin: 04/23/17 09:06 Dose: 40 mg Clopidogrel Bisulfate (Plavix) 75 mg PO DAILY [facility] Last Admin: 04/23/17 09:08 Dose: 75 mg Ferrous Sulfate (Feosol) 325 mg PO DAILY [facility] Last Admin: 04/23/17 09:07 Dose: 325 mg Home Med (Hydrocodone/Acetaminophen [Hydrocodone-Acetamin 10-325 Mg]) 10 mg PO Q6 PRN PRN Reason: Pain, moderate (4-7) Home Med (Ropinirole Hcl [Ropinirole Hcl]) 1 mg PO Q12 [facility] Home Med (Tapentadol Hcl [Nucynta]) 100 mg PO Q8@0500,1300,2100 [facility] Last Admin: 04/23/17 04:05 Dose: 100 mg Potassium Chloride/Sodium Chloride (Potassium Chl 20 Meq In Ns) 1,000 mls @ 100 mls/hr IV .Q10H [facility] Stop: 04/23/17 16:17 Last Admin: 04/22/17 21:00 Dose: 100 mls/hr Aztreonam 2 gm/ Sodium (Chloride) 100 mls @ 100 mls/hr IVPB Q8H [facility] PRN Reason: Protocol Metronidazole (Flagyl 500mg/100ml Ns) 100 mls @ 100 mls/hr IVPB Q8H [facility] PRN Reason: Protocol Vancomycin HCl 1 gm/ Sodium (Chloride) 250 mls @ 166.667 mls/hr IVPB Q12H [facility] PRN Reason: Protocol Acyclovir 500 mg/ Sodium (Chloride) 100 mls @ 100 mls/hr IV Q8 [facility] PRN Reason: Protocol Doxycycline Hyclate 100 mg/ (Sodium Chloride) 100 mls @ 100 mls/hr IVPB Q12 [facility] PRN Reason: Protocol Lorazepam (Ativan) 2 mg IV Q4 PRN PRN Reason: Seizure activity Last Admin: 04/22/17 23:13 Dose: 2 mg Ondansetron HCl (Zofran Inj) 4 mg IVP Q4 PRN PRN Reason: Nausea/Vomiting Pantoprazole Sodium (Protonix Inj) 40 mg IVP Q12H [facility] Potassium Chloride (K-Dur 20 Meq Er Tab) 40 meq PO DAILY [facility] Last Admin: 04/23/17 09:11 Dose: 40 meq Potassium Chloride (K-Dur 20 Meq Er Tab) 40 meq PO Q6H [facility] Stop: 04/23/17 14:31 - Labs Labs: - Constitutional Appears: No Acute Distress - Head Exam Head Exam: ATRAUMATIC - ENT Exam ENT Exam: Normal Oropharynx - Neck Exam Neck Exam: Full ROM Additional comments: supple no meningismus - Respiratory Exam Respiratory Exam: NORMAL BREATHING PATTERN Additional comments: good breath sounds B/l no wheezing - Cardiovascular Exam Cardiovascular Exam: RRR, +S1, +S2 - GI/Abdominal Exam GI & Abdominal Exam: Soft, Normal Bowel Sounds Additional comments: ND, no tenderness - Extremities Exam Extremities Exam: Normal Inspection - Neurological Exam Neurological Exam: Awake, Oriented x3 - Additional Findings Additional findings: Laboratory Results - last 72 hr 04/20/17 04/20/17 04/20/17 11:55 11:55 17:50 WBC 11.0 H RBC 4.24 Hgb 13.1 Hct 39.3 MCV 92.7 MCH 30.8 MCHC 33.2 RDW 12.5 Plt Count 171 MPV 8.5 Neut % (Auto) 91.5 H Lymph % (Auto) 5.5 L Gregg % (Auto) 2.8 Eos % (Auto) 0.0 Baso % (Auto) 0.2 Neut # 10.1 H Lymph # 0.6 L Gregg # 0.3 Eos # 0.0 Baso # 0.0 Neutrophils % (Manual) 89 H Band Neutrophils % 1 Lymphocytes % (Manual) 6 L Monocytes % (Manual) 4 Platelet Estimate Normal RBC Morphology Normal ESR pCO2 pO2 HCO3 ABG pH ABG Total CO2 ABG O2 Saturation ABG Base Excess Randy Test ABG Potassium A-a O2 Difference Glucose Lactate FiO2 Sodium 131 L Potassium 3.3 L Chloride 96 L Carbon Dioxide 23 Anion Gap 15 BUN 10 Creatinine 0.6 L Est GFR ( Amer) > 60 Est GFR (Non-Af Amer) > 60 POC Glucose (mg/dL) Random Glucose 119 H Serum Osmolality Lactic Acid Calcium 9.0 Phosphorus Magnesium Total Bilirubin 1.0 AST 21 ALT 30 Alkaline Phosphatase 56 C-React Prot High Sens NT-Pro-B Natriuret Pep Total Protein 7.6 Albumin 4.5 Globulin 3.2 Albumin/Globulin Ratio 1.4 Triglycerides Cholesterol LDL Cholesterol Direct HDL Cholesterol Lipase 55 Free T4 Free T3 pg/mL TSH 3rd Generation Prolactin Arterial Blood Potassium Urine Color Urine Clarity Urine pH Ur Specific Sigel Urine Protein Urine Glucose (UA) Urine Ketones Urine Blood Urine Nitrate Urine Bilirubin Urine Urobilinogen Ur Leukocyte Esterase Urine RBC (Auto) Urine Microscopic WBC Ur Squamous Epith Cells Urine Bacteria Urine Osmolality Stool Leukocytes, Qual Urine Opiates Screen Positive H Urine Methadone Screen Negative Acetaminophen Ur Barbiturates Screen Negative Ur Phencyclidine Scrn Negative Ur Amphetamines Screen Negative U Benzodiazepines Scrn Negative U Oth Cocaine Metabols Negative U Cannabinoids Screen Negative Alcohol, Quantitative < 10 C. difficile Ag & Toxin 04/20/17 04/21/17 04/21/17 23:55 04:20 04:20 WBC RBC Hgb Hct MCV MCH MCHC RDW Plt Count MPV Neut % (Auto) Lymph % (Auto) Gregg % (Auto) Eos % (Auto) Baso % (Auto) Neut # Lymph # Gregg # Eos # Baso # Neutrophils % (Manual) Band Neutrophils % Lymphocytes % (Manual) Monocytes % (Manual) Platelet Estimate RBC Morphology ESR 18 pCO2 pO2 HCO3 ABG pH ABG Total CO2 ABG O2 Saturation ABG Base Excess Randy Test ABG Potassium A-a O2 Difference Glucose Lactate FiO2 Sodium Potassium Chloride Carbon Dioxide Anion Gap BUN Creatinine Est GFR ( Amer) Est GFR (Non-Af Amer) POC Glucose (mg/dL) Random Glucose Serum Osmolality Lactic Acid Calcium Phosphorus Magnesium 1.7 Total Bilirubin AST ALT Alkaline Phosphatase C-React Prot High Sens 4.54 H NT-Pro-B Natriuret Pep Total Protein Albumin Globulin Albumin/Globulin Ratio Triglycerides Cholesterol LDL Cholesterol Direct HDL Cholesterol Lipase Free T4 Free T3 pg/mL TSH 3rd Generation 0.26 L Prolactin Arterial Blood Potassium Urine Color Urine Clarity Urine pH Ur Specific Sigel Urine Protein Urine Glucose (UA) Urine Ketones Urine Blood Urine Nitrate Urine Bilirubin Urine Urobilinogen Ur Leukocyte Esterase Urine RBC (Auto) Urine Microscopic WBC Ur Squamous Epith Cells Urine Bacteria Urine Osmolality Stool Leukocytes, Qual Urine Opiates Screen Urine Methadone Screen Acetaminophen Ur Barbiturates Screen Ur Phencyclidine Scrn Ur Amphetamines Screen U Benzodiazepines Scrn U Oth Cocaine Metabols U Cannabinoids Screen Alcohol, Quantitative C. difficile Ag & Toxin 04/21/17 04/21/17 04/21/17 04:20 07:39 07:39 WBC 8.2 RBC 4.14 Hgb 12.8 Hct 38.3 MCV 92.4 MCH 31.0 MCHC 33.5 RDW 12.5 Plt Count 147 MPV 8.9 Neut % (Auto) 84.6 H Lymph % (Auto) 7.0 L Gregg % (Auto) 8.3 Eos % (Auto) 0.0 Baso % (Auto) 0.1 Neut # 6.9 Lymph # 0.6 L Gregg # 0.7 Eos # 0.0 Baso # 0.0 Neutrophils % (Manual) Band Neutrophils % Lymphocytes % (Manual) Monocytes % (Manual) Platelet Estimate RBC Morphology ESR pCO2 pO2 HCO3 ABG pH ABG Total CO2 ABG O2 Saturation ABG Base Excess Randy Test ABG Potassium A-a O2 Difference Glucose Lactate FiO2 Sodium 130 L Potassium 3.5 L Chloride 96 L Carbon Dioxide 26 Anion Gap 12 BUN 9 Creatinine 0.5 L Est GFR ( Amer) > 60 Est GFR (Non-Af Amer) > 60 POC Glucose (mg/dL) Random Glucose 151 H Serum Osmolality Lactic Acid Calcium 8.3 L Phosphorus Magnesium Total Bilirubin 0.8 AST 22 ALT 33 Alkaline Phosphatase 44 C-React Prot High Sens NT-Pro-B Natriuret Pep Total Protein 6.9 Albumin 3.9 Globulin 3.0 Albumin/Globulin Ratio 1.3 Triglycerides Cholesterol LDL Cholesterol Direct HDL Cholesterol Lipase Free T4 Free T3 pg/mL 2.00 L TSH 3rd Generation 0.13 L Prolactin 5.0 Arterial Blood Potassium Urine Color Urine Clarity Urine pH Ur Specific Sigel Urine Protein Urine Glucose (UA) Urine Ketones Urine Blood Urine Nitrate Urine Bilirubin Urine Urobilinogen Ur Leukocyte Esterase Urine RBC (Auto) Urine Microscopic WBC Ur Squamous Epith Cells Urine Bacteria Urine Osmolality Stool Leukocytes, Qual Urine Opiates Screen Urine Methadone Screen Acetaminophen Ur Barbiturates Screen Ur Phencyclidine Scrn Ur Amphetamines Screen U Benzodiazepines Scrn U Oth Cocaine Metabols U Cannabinoids Screen Alcohol, Quantitative C. difficile Ag & Toxin 04/21/17 04/21/17 04/21/17 07:39 09:20 22:07 WBC RBC Hgb Hct MCV MCH MCHC RDW Plt Count MPV Neut % (Auto) Lymph % (Auto) Gregg % (Auto) Eos % (Auto) Baso % (Auto) Neut # Lymph # Gregg # Eos # Baso # Neutrophils % (Manual) Band Neutrophils % Lymphocytes % (Manual) Monocytes % (Manual) Platelet Estimate RBC Morphology ESR pCO2 pO2 HCO3 ABG pH ABG Total CO2 ABG O2 Saturation ABG Base Excess Randy Test ABG Potassium A-a O2 Difference Glucose Lactate FiO2 Sodium Potassium Chloride Carbon Dioxide Anion Gap BUN Creatinine Est GFR ( Amer) Est GFR (Non-Af Amer) POC Glucose (mg/dL) 125 H Random Glucose Serum Osmolality Lactic Acid Calcium Phosphorus Magnesium Total Bilirubin AST ALT Alkaline Phosphatase C-React Prot High Sens NT-Pro-B Natriuret Pep Total Protein Albumin Globulin Albumin/Globulin Ratio Triglycerides Cholesterol LDL Cholesterol Direct HDL Cholesterol Lipase Free T4 0.73 L Free T3 pg/mL TSH 3rd Generation Prolactin Arterial Blood Potassium Urine Color Urine Clarity Urine pH Ur Specific Sigel Urine Protein Urine Glucose (UA) Urine Ketones Urine Blood Urine Nitrate Urine Bilirubin Urine Urobilinogen Ur Leukocyte Esterase Urine RBC (Auto) Urine Microscopic WBC Ur Squamous Epith Cells Urine Bacteria Urine Osmolality Stool Leukocytes, Qual Negative Urine Opiates Screen Urine Methadone Screen Acetaminophen Ur Barbiturates Screen Ur Phencyclidine Scrn Ur Amphetamines Screen U Benzodiazepines Scrn U Oth Cocaine Metabols U Cannabinoids Screen Alcohol, Quantitative C. difficile Ag & Toxin Positive antigen 04/21/17 04/22/17 04/22/17 23:00 05:40 05:40 WBC 14.2 H D RBC 4.04 Hgb 12.7 Hct 37.2 MCV 92.3 MCH 31.4 H MCHC 34.0 RDW 12.5 Plt Count 129 L MPV 8.7 Neut % (Auto) 86.7 H Lymph % (Auto) 6.0 L Gregg % (Auto) 7.2 Eos % (Auto) 0.0 Baso % (Auto) 0.1 Neut # 12.3 H Lymph # 0.9 L Gregg # 1.0 H Eos # 0.0 Baso # 0.0 Neutrophils % (Manual) Band Neutrophils % Lymphocytes % (Manual) Monocytes % (Manual) Platelet Estimate RBC Morphology ESR pCO2 pO2 HCO3 ABG pH ABG Total CO2 ABG O2 Saturation ABG Base Excess Randy Test ABG Potassium A-a O2 Difference Glucose Lactate FiO2 Sodium 127 L Potassium 3.2 L Chloride 92 L Carbon Dioxide 27 Anion Gap 11 BUN 8 Creatinine 0.5 L Est GFR ( Amer) > 60 Est GFR (Non-Af Amer) > 60 POC Glucose (mg/dL) Random Glucose 118 H Serum Osmolality Lactic Acid Calcium 8.1 L Phosphorus Magnesium 2.0 Total Bilirubin 0.8 AST 30 ALT 43 Alkaline Phosphatase 51 C-React Prot High Sens NT-Pro-B Natriuret Pep Total Protein 7.0 Albumin 4.1 Globulin 3.0 Albumin/Globulin Ratio 1.4 Triglycerides Cholesterol LDL Cholesterol Direct HDL Cholesterol Lipase Free T4 Free T3 pg/mL TSH 3rd Generation Prolactin Arterial Blood Potassium Urine Color Yellow Urine Clarity Slighty-cloudy Urine pH 6.0 Ur Specific Sigel 1.012 Urine Protein Negative Urine Glucose (UA) 50 Urine Ketones 80 Urine Blood Moderate Urine Nitrate Negative Urine Bilirubin Negative Urine Urobilinogen 0.2-1.0 Ur Leukocyte Esterase Trace Urine RBC (Auto) 14 H Urine Microscopic WBC 3 Ur Squamous Epith Cells 1 Urine Bacteria Rare Urine Osmolality Stool Leukocytes, Qual Urine Opiates Screen Urine Methadone Screen Acetaminophen Ur Barbiturates Screen Ur Phencyclidine Scrn Ur Amphetamines Screen U Benzodiazepines Scrn U Oth Cocaine Metabols U Cannabinoids Screen Alcohol, Quantitative C. difficile Ag & Toxin 04/22/17 04/22/17 04/22/17 05:40 10:33 16:08 WBC RBC Hgb Hct MCV MCH MCHC RDW Plt Count MPV Neut % (Auto) Lymph % (Auto) Gregg % (Auto) Eos % (Auto) Baso % (Auto) Neut # Lymph # Gregg # Eos # Baso # Neutrophils % (Manual) Band Neutrophils % Lymphocytes % (Manual) Monocytes % (Manual) Platelet Estimate RBC Morphology ESR pCO2 34 L pO2 70 L HCO3 27.1 ABG pH 7.49 H ABG Total CO2 26.9 ABG O2 Saturation 98.8 H ABG Base Excess 2.8 Randy Test Yes ABG Potassium 2.9 L A-a O2 Difference 37.0 Glucose 122 H Lactate 0.7 FiO2 21.0 Sodium 123.0 L Potassium Chloride 92.0 L Carbon Dioxide Anion Gap BUN Creatinine Est GFR ( Amer) Est GFR (Non-Af Amer) POC Glucose (mg/dL) Random Glucose Serum Osmolality 257 L Lactic Acid Calcium Phosphorus Magnesium Total Bilirubin AST ALT Alkaline Phosphatase C-React Prot High Sens NT-Pro-B Natriuret Pep Total Protein Albumin Globulin Albumin/Globulin Ratio Triglycerides Cholesterol LDL Cholesterol Direct HDL Cholesterol Lipase Free T4 Free T3 pg/mL TSH 3rd Generation Prolactin Arterial Blood Potassium 2.9 L Urine Color Urine Clarity Urine pH Ur Specific Sigel Urine Protein Urine Glucose (UA) Urine Ketones Urine Blood Urine Nitrate Urine Bilirubin Urine Urobilinogen Ur Leukocyte Esterase Urine RBC (Auto) Urine Microscopic WBC Ur Squamous Epith Cells Urine Bacteria Urine Osmolality Stool Leukocytes, Qual Urine Opiates Screen Urine Methadone Screen Acetaminophen < 10.0 L Ur Barbiturates Screen Ur Phencyclidine Scrn Ur Amphetamines Screen U Benzodiazepines Scrn U Oth Cocaine Metabols U Cannabinoids Screen Alcohol, Quantitative C. difficile Ag & Toxin 04/22/17 04/22/17 04/23/17 18:37 18:37 04:40 WBC 10.6 RBC 4.05 Hgb 12.6 Hct 37.3 MCV 92.1 MCH 31.1 H MCHC 33.8 RDW 12.2 Plt Count 109 L D MPV 8.6 Neut % (Auto) 77.2 H Lymph % (Auto) 9.8 L Gregg % (Auto) 12.8 H Eos % (Auto) 0.0 Baso % (Auto) 0.2 Neut # 8.2 H Lymph # 1.0 Gregg # 1.4 H Eos # 0.0 Baso # 0.0 Neutrophils % (Manual) Band Neutrophils % Lymphocytes % (Manual) Monocytes % (Manual) Platelet Estimate RBC Morphology ESR pCO2 pO2 HCO3 ABG pH ABG Total CO2 ABG O2 Saturation ABG Base Excess Randy Test ABG Potassium A-a O2 Difference Glucose Lactate FiO2 Sodium 127 L Potassium 3.3 L Chloride 90 L Carbon Dioxide 29 Anion Gap 11 BUN 7 Creatinine 0.4 L Est GFR ( Amer) > 60 Est GFR (Non-Af Amer) > 60 POC Glucose (mg/dL) Random Glucose 92 Serum Osmolality Lactic Acid Calcium 8.3 L Phosphorus 1.6 L Magnesium 1.9 Total Bilirubin 0.7 AST 32 ALT 42 Alkaline Phosphatase 42 C-React Prot High Sens NT-Pro-B Natriuret Pep Total Protein 6.4 Albumin 3.8 Globulin 2.7 Albumin/Globulin Ratio 1.4 Triglycerides 99 Cholesterol 173 LDL Cholesterol Direct 105 HDL Cholesterol 39 Lipase Free T4 Free T3 pg/mL TSH 3rd Generation Prolactin Arterial Blood Potassium Urine Color Urine Clarity Urine pH Ur Specific Sigel Urine Protein Urine Glucose (UA) Urine Ketones Urine Blood Urine Nitrate Urine Bilirubin Urine Urobilinogen Ur Leukocyte Esterase Urine RBC (Auto) Urine Microscopic WBC Ur Squamous Epith Cells Urine Bacteria Urine Osmolality Stool Leukocytes, Qual Urine Opiates Screen Urine Methadone Screen Acetaminophen Ur Barbiturates Screen Ur Phencyclidine Scrn Ur Amphetamines Screen U Benzodiazepines Scrn U Oth Cocaine Metabols U Cannabinoids Screen Alcohol, Quantitative C. difficile Ag & Toxin 04/23/17 04/23/17 04/23/17 04:40 04:40 04:40 WBC 8.7 RBC 4.20 Hgb 13.2 Hct 38.1 MCV 90.8 MCH 31.6 H MCHC 34.8 RDW 12.3 Plt Count 100 L MPV Neut % (Auto) Lymph % (Auto) Gregg % (Auto) Eos % (Auto) Baso % (Auto) Neut # Lymph # Gregg # Eos # Baso # Neutrophils % (Manual) Band Neutrophils % Lymphocytes % (Manual) Monocytes % (Manual) Platelet Estimate RBC Morphology ESR pCO2 pO2 HCO3 ABG pH ABG Total CO2 ABG O2 Saturation ABG Base Excess Randy Test ABG Potassium A-a O2 Difference Glucose Lactate FiO2 Sodium 124 L Potassium 3.1 L Chloride 90 L Carbon Dioxide 31 H Anion Gap 6 L BUN 5 L Creatinine 0.5 L Est GFR ( Amer) > 60 Est GFR (Non-Af Amer) > 60 POC Glucose (mg/dL) Random Glucose 92 Serum Osmolality 259 L Lactic Acid Calcium 8.1 L Phosphorus Magnesium Total Bilirubin 0.8 AST 34 ALT 46 Alkaline Phosphatase 45 C-React Prot High Sens NT-Pro-B Natriuret Pep Total Protein 6.6 Albumin 3.8 Globulin 2.8 Albumin/Globulin Ratio 1.3 Triglycerides Cholesterol LDL Cholesterol Direct HDL Cholesterol Lipase Free T4 Free T3 pg/mL TSH 3rd Generation Prolactin Arterial Blood Potassium Urine Color Urine Clarity Urine pH Ur Specific Sigel Urine Protein Urine Glucose (UA) Urine Ketones Urine Blood Urine Nitrate Urine Bilirubin Urine Urobilinogen Ur Leukocyte Esterase Urine RBC (Auto) Urine Microscopic WBC Ur Squamous Epith Cells Urine Bacteria Urine Osmolality Stool Leukocytes, Qual Urine Opiates Screen Urine Methadone Screen Acetaminophen Ur Barbiturates Screen Ur Phencyclidine Scrn Ur Amphetamines Screen U Benzodiazepines Scrn U Oth Cocaine Metabols U Cannabinoids Screen Alcohol, Quantitative C. difficile Ag & Toxin 04/23/17 04/23/17 04/23/17 08:21 08:21 11:35 WBC RBC Hgb Hct MCV MCH MCHC RDW Plt Count MPV Neut % (Auto) Lymph % (Auto) Gregg % (Auto) Eos % (Auto) Baso % (Auto) Neut # Lymph # Gregg # Eos # Baso # Neutrophils % (Manual) Band Neutrophils % Lymphocytes % (Manual) Monocytes % (Manual) Platelet Estimate RBC Morphology ESR pCO2 pO2 HCO3 ABG pH ABG Total CO2 ABG O2 Saturation ABG Base Excess Randy Test ABG Potassium A-a O2 Difference Glucose Lactate FiO2 Sodium Potassium Chloride Carbon Dioxide Anion Gap BUN Creatinine Est GFR ( Amer) Est GFR (Non-Af Amer) POC Glucose (mg/dL) Random Glucose Serum Osmolality Lactic Acid Calcium Phosphorus Magnesium Total Bilirubin AST ALT Alkaline Phosphatase C-React Prot High Sens NT-Pro-B Natriuret Pep 1680 H 1600 H Total Protein Albumin Globulin Albumin/Globulin Ratio Triglycerides Cholesterol LDL Cholesterol Direct HDL Cholesterol Lipase Free T4 Free T3 pg/mL TSH 3rd Generation 0.17 L Prolactin Arterial Blood Potassium Urine Color Urine Clarity Urine pH Ur Specific Sigel Urine Protein Urine Glucose (UA) Urine Ketones Urine Blood Urine Nitrate Urine Bilirubin Urine Urobilinogen Ur Leukocyte Esterase Urine RBC (Auto) Urine Microscopic WBC Ur Squamous Epith Cells Urine Bacteria Urine Osmolality 540 Stool Leukocytes, Qual Urine Opiates Screen Urine Methadone Screen Acetaminophen Ur Barbiturates Screen Ur Phencyclidine Scrn Ur Amphetamines Screen U Benzodiazepines Scrn U Oth Cocaine Metabols U Cannabinoids Screen Alcohol, Quantitative C. difficile Ag & Toxin 04/23/17 11:40 WBC RBC Hgb Hct MCV MCH MCHC RDW Plt Count MPV Neut % (Auto) Lymph % (Auto) Gregg % (Auto) Eos % (Auto) Baso % (Auto) Neut # Lymph # Gregg # Eos # Baso # Neutrophils % (Manual) Band Neutrophils % Lymphocytes % (Manual) Monocytes % (Manual) Platelet Estimate RBC Morphology ESR pCO2 pO2 HCO3 ABG pH ABG Total CO2 ABG O2 Saturation ABG Base Excess Randy Test ABG Potassium A-a O2 Difference Glucose Lactate FiO2 Sodium Potassium Chloride Carbon Dioxide Anion Gap BUN Creatinine Est GFR ( Amer) Est GFR (Non-Af Amer) POC Glucose (mg/dL) Random Glucose Serum Osmolality Lactic Acid 1.0 Calcium Phosphorus Magnesium Total Bilirubin AST ALT Alkaline Phosphatase C-React Prot High Sens NT-Pro-B Natriuret Pep Total Protein Albumin Globulin Albumin/Globulin Ratio Triglycerides Cholesterol LDL Cholesterol Direct HDL Cholesterol Lipase Free T4 Free T3 pg/mL TSH 3rd Generation Prolactin Arterial Blood Potassium Urine Color Urine Clarity Urine pH Ur Specific Sigel Urine Protein Urine Glucose (UA) Urine Ketones Urine Blood Urine Nitrate Urine Bilirubin Urine Urobilinogen Ur Leukocyte Esterase Urine RBC (Auto) Urine Microscopic WBC Ur Squamous Epith Cells Urine Bacteria Urine Osmolality Stool Leukocytes, Qual Urine Opiates Screen Urine Methadone Screen Acetaminophen Ur Barbiturates Screen Ur Phencyclidine Scrn Ur Amphetamines Screen U Benzodiazepines Scrn U Oth Cocaine Metabols U Cannabinoids Screen Alcohol, Quantitative C. difficile Ag & Toxin Microbiology 04/20/17 11:55 Blood-Venous Blood Culture - Preliminary NO GROWTH AFTER 3 DAYS 04/21/17 09:13 Urine,Clean Catch Urine Culture - Final No Growth (<1,000 CFU/ML) 04/21/17 07:50 Blood Blood Culture - Preliminary NO GROWTH AFTER 48 HOURS 04/21/17 22:20 Blood-Venous Blood Culture - Preliminary NO GROWTH AFTER 24 HOURS Accession No. : [id number] Patient Name / ID : JACKY MERINO / [id number] Exam Date : 04/22/2017 16:45:26 ( Approved ) Study Comment : Sex / Age : F / 61Y Creator : Del Herrera MD Dictator : Del Herrera MD Contract Post Office Clerk : Property Worker : Del Herrera MD Approver2 : Report Date : 04/22/2017 17:42:21 My Comment : PROCEDURE: MRI BRAIN WITHOUT CONTRAST HISTORY: r/o mass Vs stroke COMPARISON: Unenhanced Head CT 04/20/2017. TECHNIQUE: Multiplanar, multisequence MR images of the brain were obtained without intravenous contrast enhancement. FINDINGS: HEMORRHAGE: None DWI: Restricted diffusion is identified at the inter pole right temporal lobe extending into the temporal and frontal operculum ir lerma and the inferior right frontal lobe and potentially migrating into the medial gyri of the inferior right frontal lobe as well compatible with an acute subacute right MCA distribution infarct, anterior and middle sub segments. BRAIN PARENCHYMA: Limited mass-effect partially effaces sulci in the same distribution of the restricted diffusion of the anterior and middle inferior right MCA distribution infarction noted above. No midline shift or mass effect is exerted on the brainstem. No definitive intracranial hemorrhage is identified. Motion artifacts degrade the quality this examination including diffusion-weighted imaging. Minimal diffuse cerebral atrophy is identified as well as limited chronic microangiopathy in the periventricular white matter and occasional subcortical white matter of the bilateral frontal lobes. Empty sella noted. VENTRICLES: Unremarkable. No hydrocephalus. CRANIUM: Unremarkable. ORBITS: Grossly unremarkable. PARANASAL SINUSES/MASTOIDS: Clear VASCULAR SYSTEM: Skull base flow voids intact. OTHER FINDINGS: None. IMPRESSION: Sub distribution right MCA acute/ subacute infarct affecting the right frontal and temporal lobes as discussed above. Limited local mass is appreciate without midline shift evident or significant impression upon the brainstem. Limited age-related neuro degenerative changes are identified which appear age- appropriate.Accession No. : [id number] Patient Name / ID : JACKY MERINO / [id number] Exam Date : 04/23/2017 08:24:09 ( Approved ) Study Comment : Sex / Age : F / 61Y Creator : Ted Perez MD Dictator : Ted Perez MD Contract Post Office Clerk : Property Worker : Ted Perez MD Approver2 : Report Date : 04/23/2017 09:33:54 My Comment : PROCEDURE: CHEST RADIOGRAPH, 1 VIEW HISTORY: chf COMPARISON: None available. FINDINGS: LUNGS: Right mid/lower lung opacity versus overlying soft tissue. PLEURA: No pneumothorax or pleural fluid seen. CARDIOVASCULAR: Normal. OSSEOUS STRUCTURES: No significant abnormalities. VISUALIZED UPPER ABDOMEN: Right upper quadrant surgical clips. OTHER FINDINGS: None. IMPRESSION: Right mid/ lower lung opacity versus overlying soft tissue. Assessment and Plan (1) Gastroenteritis Status: Acute (2) Fever Status: Acute - Assessment and Plan (Free Text) Assessment: A/P- 61 year old female with h/o fibromyalgia and HTN admitted with abdominal pain and n/v and diarrhea and febrile. pt. has been spiking temps daily with normal wbc count and so far all blood and urine cx are all negative. she was trasferred to ICU for closer monitoring of her temps and CXR today right middle lobe haziness ( perhaps aspiration pneumonia) AP[facility]ONIA MRI as per report acute vs subacute infarct in right MCA region, no midline shift as per MRI report. stool c.diff GA- positive stool cx- neg hyponatremia, no anion gap decrease in platelet count plan- await TTE result. panculture again. advise to check LP and send CSF for cell count and gram stain and culture and HSV PCR, AFB and fungal culture and lyme and WNV . continue with oral flagyl for positive stool c.diff. advise to treat for ? RML aspiration pneumonia , in light of her cephalosporin allergy advise to start her on aztreonam and vancomycin, which would also cover for questionable bacterial meningitis pending csf results. No objection to continuing with the IV acyclovir already initiated by ICU doctor for presumed viral meningitis pending CSF results. the etiology of the high fever is still unclear but could be multifactorial central fever vs withdrawal syndrome vs asp pneumonia vs acute CVA, vs seizure. check HIV AB/AG as well. check for hep C AB in light of thrombocytopenia. check peripheral smear. check B/L LE and UE US r/o DVT as work up of fever advise to check chest Ct as well. also advise to get nephrology evaluation for the evaluation of hyponatremia and r/o SIADH vs other etiologies. check YOEL and anti-DS DNA and RF. also would advise r/o serotonin syndrome , check patient's home meds. all imaging and labs reviewed. case d/w [employer] . ICU time spent 60 minutes.
[2017-04-23] MEDS: Aztreonam 2 GM in Sodium Chloride 0.9% 100 ML IVPB SCH ×2 (12:31→19:26)
[2017-04-23 13:10] LABS: BARBITURATES, UR NEGATIVE (NEGATIVE); BENZODIAZEPINES, UR NEGATIVE (NEGATIVE); OPIATES, UR NEGATIVE (NEGATIVE); PHENCYCLIDINE, UR NEGATIVE (NEGATIVE)
--- NOTE | 2017-04-23 14:06 | CP.CCUPN ---
CCU Subjective - Physician Review Subjective (Free Text): Patient seen and examined at bedside. Patient's hospital course reviewed. Patient actually admitted for AMS and fevers. Patient with normal lactic, cbc differential not available admitted to telemetry bed. Patient transferred to ICU for 1:1 and 2:1 nursing. Patient awake alert in with chills and rigors during evaluation. CCU Objective - Vital Signs / Intake & Output Vital Signs (Last 4 hours): Vital Signs Temp Pulse Resp BP Pulse Ox 04/23/17 12:00 98.1 F 83 23 143/90 95 Intake and Output (Last 8hrs): Intake & Output 04/22/17 04/23/17 04/23/17 22:59 06:59 14:59 Intake Total 3450 1550 600 Output Total 1000 1900 250 Balance 2450 -350 350 Intake: IV 2300 800 350 Intake, Piggyback 500 Oral 650 750 250 Output: Urine 1000 1900 250 Urethral ([place]ub[place]) 1000 1900 250 Other: # Bowel Movements 1 1 1 - Physical Exam Physical Exam Limitations: Positive for: Altered Mental Status, Uncooperative Head: Positive for: Atraumatic, Other ((+) nuchal rigidity) Mouth: Positive for: Moist Mucous Membranes Neck: Positive for: Meningeal Signs Respiratory/Chest: Positive for: Wheezes, Decreased Breath Sounds, Rales, Retracting, Rhonchi Cardiovascular: Positive for: Normal S1, S2, Tachycardic Upper Extremity: Positive for: Normal Inspection Lower Extremity: Positive for: Normal Inspection Neurological: Negative for: GCS=15, CN II-XII Intact, Speech Normal Psychiatric: Positive for: Alert - Medications Active Medications: Active Medications Generic Name Dose Route Start Last Admin Trade Name Freq PRN Reason Stop Dose Admin Acetaminophen 650 mg 04/22/17 20:13 04/23/17 03:05 Tylenol 325mg Tab PO 650 mg Q6 PRN Administration Fever >100.4 F Al Hydrox/Mg Hydrox/Simethicone 30 ml 04/22/17 20:13 Maalox Plus 30 Ml PO Q4 PRN Indigestion / Heartburn Atorvastatin Calcium 40 mg 04/23/17 09:00 04/23/17 09:06 Lipitor PO 40 mg DAILY MANDI Administration Clopidogrel Bisulfate 75 mg 04/23/17 09:00 04/23/17 09:08 Plavix PO 75 mg DAILY MANDI Administration Ferrous Sulfate 325 mg 04/23/17 09:00 04/23/17 09:07 Feosol PO 325 mg DAILY MANDI Administration Home Med 10 mg 04/22/17 20:13 Hydrocodone/Acetaminophen [Hydrocodone-Acetamin 10-325 Mg] PO Q6 PRN Pain, moderate (4-7) Home Med 1 mg 04/22/17 21:00 04/23/17 09:00 Ropinirole Hcl [Ropinirole Hcl] PO 1 mg Q12 MANDI Administration Home Med 100 mg 04/22/17 22:45 04/23/17 12:40 Tapentadol Hcl [Nucynta] PO 100 mg Q8@0500,1300,2100 MANDI Administration Potassium Chloride/Sodium Chloride 1,000 mls @ 100 mls/hr 04/22/17 20:13 21:00 Potassium Chl 20 Meq In Ns IV 04/23/17 16:17 100 mls/hr .Q10H MANDI Administration Aztreonam 2 gm/ Sodium 100 mls @ 100 mls/hr 04/23/17 10:15 04/23/17 12:31 Chloride IVPB 100 mls/hr Q8H MANDI Administration Protocol Vancomycin HCl 1 gm/ Sodium 250 mls @ 166.667 mls/hr 04/23/17 10:15 04/23/17 12:32 Chloride IVPB 166.667 mls/hr Q12H MANDI Administration Protocol Acyclovir 500 mg/ Sodium 100 mls @ 100 mls/hr 04/23/17 10:30 Chloride IV Q8 [facility] Protocol Doxycycline Hyclate 100 mg/ 100 mls @ 100 mls/hr 04/23/17 21:00 Sodium Chloride IVPB Q12 [facility] Protocol Lorazepam 2 mg 04/22/17 20:13 04/22/17 23:13 Ativan IV 2 mg Q4 PRN Administration Seizure activity Metronidazole 500 mg 04/23/17 17:00 Flagyl PO Q8 [facility] Protocol Ondansetron HCl 4 mg 04/22/17 20:13 Zofran Inj IVP Q4 PRN Nausea/Vomiting Pantoprazole Sodium 40 mg 04/23/17 10:15 Protonix Inj IVP Q12H [facility] Potassium Chloride 40 meq 04/23/17 09:00 04/23/17 09:11 K-Dur 20 Meq Er Tab PO 40 meq DAILY MANDI Administration Potassium Chloride 40 meq 04/23/17 08:30 K-Dur 20 Meq Er Tab PO 04/23/17 14:31 Q6H MANDI - Patient Studies Lab Studies: Microbiology Studies 04/20/17 11:55 Blood Culture - Preliminary Blood-Venous NO GROWTH AFTER 3 DAYS 04/21/17 09:13 Urine Culture - Final Urine,Clean Catch No Growth (<1,000 CFU/ML) 04/21/17 07:50 Blood Culture - Preliminary Blood NO GROWTH AFTER 48 HOURS 04/21/17 22:20 Blood Culture - Preliminary Blood-Venous NO GROWTH AFTER 24 HOURS Lab Studies 04/23/17 04/23/17 04/23/17 Range/Units 12:25 11:40 11:35 WBC (4.8-10.8) K/uL RBC (3.80-5.20) Mil/uL Hgb (12.0-16.0) g/dL Hct (34.0-47.0) % MCV (81.0-99.0) fl MCH (27.0-31.0) pg MCHC (33.0-37.0) g/dL RDW (11.5-14.5) % Plt Count (130-400) K/uL MPV (7.2-11.7) fl Neut % (Auto) (50.0-75.0) % Lymph % (Auto) (20.0-40.0) % Gosper % (Auto) (0.0-10.0) % Eos % (Auto) (0.0-4.0) % Baso % (Auto) (0.0-2.0) % Neut # (1.8-7.0) K/uL Lymph # (1.0-4.3) K/uL Gosper # (0.0-0.8) K/uL Eos # (0.0-0.7) K/uL Baso # (0.0-0.2) K/uL pCO2 (35-45) mm/Hg pO2 (80-100) mm/Hg HCO3 (21-28) mmol/L ABG pH (7.35-7.45) ABG Total CO2 (22-28) mmol/L ABG O2 Saturation (95-98) % ABG Base Excess (-2.0-3.0) mmol/L Randy Test ABG Potassium (3.6-5.2) mmol/L A-a O2 Difference mm/Hg Sodium (132-148) mmol/L Chloride (98-107) mmol/L Glucose (65-105) mg/dL Lactate (0.7-2.1) mmol/L FiO2 % Potassium (3.6-5.0) MMOL/L Carbon Dioxide (22-30) mmol/L Anion Gap (10-20) BUN (7-17) mg/dl Creatinine (0.7-1.2) mg/dl Est GFR ( Amer) Est GFR (Non-Af Amer) Random Glucose (65-105) mg/dL Serum Osmolality (272-300) mosm/kg Lactic Acid 1.0 (0.7-2.1) MMOL/L Calcium (8.4-10.2) mg/dL Phosphorus (2.5-4.5) mg/dl Magnesium (1.6-2.3) MG/DL Total Bilirubin (0.2-1.3) mg/dl AST (14-36) U/L ALT (9-52) U/L Alkaline Phosphatase (38-126) U/L NT-Pro-B Natriuret Pep 1600 H (0-900) pg/ml Total Protein (6.3-8.2) G/DL Albumin (3.5-5.0) g/dL Globulin (2.2-3.9) gm/dL Albumin/Globulin Ratio (1.0-2.1) Triglycerides (0-149) mg/DL Cholesterol (0-199) mg/dL LDL Cholesterol Direct (0-129) mg/dL HDL Cholesterol (30-70) MG/DL TSH 3rd Generation (0.46-4.68) mIU/ML Arterial Blood Potassium (3.6-5.2) mmol/L Urine Osmolality (300-1000) mosm/kg Stool Leukocytes, Qual (NEGATIVE) Urine Opiates Screen Negative (NEGATIVE) Urine Methadone Screen Negative (NEGATIVE) Ur Barbiturates Screen Negative (NEGATIVE) Ur Phencyclidine Scrn Negative (NEGATIVE) Ur Amphetamines Screen Negative (NEGATIVE) U Benzodiazepines Scrn Negative (NEGATIVE) U Oth Cocaine Metabols Negative (NEGATIVE) U Cannabinoids Screen Negative (NEGATIVE) 04/23/17 04/23/17 04/23/17 Range/Units 08:21 08:21 04:40 WBC (4.8-10.8) K/uL RBC (3.80-5.20) Mil/uL Hgb (12.0-16.0) g/dL Hct (34.0-47.0) % MCV (81.0-99.0) fl MCH (27.0-31.0) pg MCHC (33.0-37.0) g/dL RDW (11.5-14.5) % Plt Count (130-400) K/uL MPV (7.2-11.7) fl Neut % (Auto) (50.0-75.0) % Lymph % (Auto) (20.0-40.0) % Gos[place] % (Auto) (0.0-10.0) % Eos % (Auto) (0.0-4.0) % Baso % (Auto) (0.0-2.0) % Neut # (1.8-7.0) K/uL Lymph # (1.0-4.3) K/uL Gosper # (0.0-0.8) K/uL Eos # (0.0-0.7) K/uL Baso # (0.0-0.2) K/uL pCO2 (35-45) mm/Hg pO2 (80-100) mm/Hg HCO3 (21-28) mmol/L ABG pH (7.35-7.45) ABG Total CO2 (22-28) mmol/L ABG O2 Saturation (95-98) % ABG Base Excess (-2.0-3.0) mmol/L Randy Test ABG Potassium (3.6-5.2) mmol/L A-a O2 Difference mm/Hg Sodium (132-148) mmol/L Chloride (98-107) mmol/L Glucose (65-105) mg/dL Lactate (0.7-2.1) mmol/L FiO2 % Potassium (3.6-5.0) MMOL/L Carbon Dioxide (22-30) mmol/L Anion Gap (10-20) BUN (7-17) mg/dl Creatinine (0.7-1.2) mg/dl Est GFR ( Amer) Est GFR (Non-Af Amer) Random Glucose (65-105) mg/dL Serum Osmolality 259 L (272-300) mosm/kg Lactic Acid (0.7-2.1) MMOL/L Calcium (8.4-10.2) mg/dL Phosphorus (2.5-4.5) mg/dl Magnesium (1.6-2.3) MG/DL Total Bilirubin (0.2-1.3) mg/dl AST (14-36) U/L ALT (9-52) U/L Alkaline Phosphatase (38-126) U/L NT-Pro-B Natriuret Pep 1680 H (0-900) pg/ml Total Protein (6.3-8.2) G/DL Albumin (3.5-5.0) g/dL Globulin (2.2-3.9) gm/dL Albumin/Globulin Ratio (1.0-2.1) Triglycerides (0-149) mg/DL Cholesterol (0-199) mg/dL LDL Cholesterol Direct (0-129) mg/dL HDL Cholesterol (30-70) MG/DL TSH 3rd Generation 0.17 L (0.46-4.68) mIU/ML Arterial Blood Potassium (3.6-5.2) mmol/L Urine Osmolality 540 (300-1000) mosm/kg Stool Leukocytes, Qual (NEGATIVE) Urine Opiates Screen (NEGATIVE) Urine Methadone Screen (NEGATIVE) Ur Barbiturates Screen (NEGATIVE) Ur Phencyclidine Scrn (NEGATIVE) Ur Amphetamines Screen (NEGATIVE) U Benzodiazepines Scrn (NEGATIVE) U Oth Cocaine Metabols (NEGATIVE) U Cannabinoids Screen (NEGATIVE) 04/23/17 04/23/17 04/23/17 Range/Units 04:40 04:40 04:40 WBC 8.7 (4.8-10.8) K/uL RBC 4.20 (3.80-5.20) Mil/uL Hgb 13.2 (12.0-16.0) g/dL Hct 38.1 (34.0-47.0) % MCV 90.8 (81.0-99.0) fl MCH 31.6 H (27.0-31.0) pg MCHC 34.8 (33.0-37.0) g/dL RDW 12.3 (11.5-14.5) % Plt Count 100 L (130-400) K/uL MPV (7.2-11.7) fl Neut % (Auto) (50.0-75.0) % Lymph % (Auto) (20.0-40.0) % Gosper % (Auto) (0.0-10.0) % Eos % (Auto) (0.0-4.0) % Baso % (Auto) (0.0-2.0) % Neut # (1.8-7.0) K/uL Lymph # (1.0-4.3) K/uL Gosper # (0.0-0.8) K/uL Eos # (0.0-0.7) K/uL Baso # (0.0-0.2) K/uL pCO2 (35-45) mm/Hg pO2 (80-100) mm/Hg HCO3 (21-28) mmol/L ABG pH (7.35-7.45) ABG Total CO2 (22-28) mmol/L ABG O2 Saturation (95-98) % ABG Base Excess (-2.0-3.0) mmol/L Randy Test ABG Potassium (3.6-5.2) mmol/L A-a O2 Difference mm/Hg Sodium 124 L (132-148) mmol/L Chloride 90 L (98-107) mmol/L Glucose (65-105) mg/dL Lactate (0.7-2.1) mmol/L FiO2 % Potassium 3.1 L (3.6-5.0) MMOL/L Carbon Dioxide 31 H (22-30) mmol/L Anion Gap 6 L (10-20) BUN 5 L (7-17) mg/dl Creatinine 0.5 L (0.7-1.2) mg/dl Est GFR ( Amer) > 60 Est GFR (Non-Af Amer) > 60 Random Glucose 92 (65-105) mg/dL Serum Osmolality (272-300) mosm/kg Lactic Acid (0.7-2.1) MMOL/L Calcium 8.1 L (8.4-10.2) mg/dL Phosphorus (2.5-4.5) mg/dl Magnesium (1.6-2.3) MG/DL Total Bilirubin 0.8 (0.2-1.3) mg/dl AST 34 (14-36) U/L ALT 46 (9-52) U/L Alkaline Phosphatase 45 (38-126) U/L NT-Pro-B Natriuret Pep (0-900) pg/ml Total Protein 6.6 (6.3-8.2) G/DL Albumin 3.8 (3.5-5.0) g/dL Globulin 2.8 (2.2-3.9) gm/dL Albumin/Globulin Ratio 1.3 (1.0-2.1) Triglycerides 99 (0-149) mg/DL Cholesterol 173 (0-199) mg/dL LDL Cholesterol Direct 105 (0-129) mg/dL HDL Cholesterol 39 (30-70) MG/DL TSH 3rd Generation (0.46-4.68) mIU/ML Arterial Blood Potassium (3.6-5.2) mmol/L Urine Osmolality (300-1000) mosm/kg Stool Leukocytes, Qual (NEGATIVE) Urine Opiates Screen (NEGATIVE) Urine Methadone Screen (NEGATIVE) Ur Barbiturates Screen (NEGATIVE) Ur Phencyclidine Scrn (NEGATIVE) Ur Amphetamines Screen (NEGATIVE) U Benzodiazepines Scrn (NEGATIVE) U Oth Cocaine Metabols (NEGATIVE) U Cannabinoids Screen (NEGATIVE) 04/22/17 04/22/17 04/22/17 Range/Units 18:37 18:37 16:08 WBC 10.6 (4.8-10.8) K/uL RBC 4.05 (3.80-5.20) Mil/uL Hgb 12.6 (12.0-16.0) g/dL Hct 37.3 (34.0-47.0) % MCV 92.1 (81.0-99.0) fl MCH 31.1 H (27.0-31.0) pg MCHC 33.8 (33.0-37.0) g/dL RDW 12.2 (11.5-14.5) % Plt Count 109 L D (130-400) K/uL MPV 8.6 (7.2-11.7) fl Neut % (Auto) 77.2 H (50.0-75.0) % Lymph % (Auto) 9.8 L (20.0-40.0) % [place]per % (Auto) 12.8 H (0.0-10.0) % Eos % (Auto) 0.0 (0.0-4.0) % Baso % (Auto) 0.2 (0.0-2.0) % Neut # 8.2 H (1.8-7.0) K/uL Lymph # 1.0 (1.0-4.3) K/uL Gosper # 1.4 H (0.0-0.8) K/uL Eos # 0.0 (0.0-0.7) K/uL Baso # 0.0 (0.0-0.2) K/uL pCO2 34 L (35-45) mm/Hg pO2 70 L (80-100) mm/Hg HCO3 27.1 (21-28) mmol/L ABG pH 7.49 H (7.35-7.45) ABG Total CO2 26.9 (22-28) mmol/L ABG O2 Saturation 98.8 H (95-98) % ABG Base Excess 2.8 (-2.0-3.0) mmol/L Randy Test Yes ABG Potassium 2.9 L (3.6-5.2) mmol/L A-a O2 Difference 37.0 mm/Hg Sodium 127 L 123.0 L (132-148) mmol/L Chloride 90 L 92.0 L (98-107) mmol/L Glucose 122 H (65-105) mg/dL Lactate 0.7 (0.7-2.1) mmol/L FiO2 21.0 % Potassium 3.3 L (3.6-5.0) MMOL/L Carbon Dioxide 29 (22-30) mmol/L Anion Gap 11 (10-20) BUN 7 (7-17) mg/dl Creatinine 0.4 L (0.7-1.2) mg/dl Est GFR ( Amer) > 60 Est GFR (Non-Af Amer) > 60 Random Glucose 92 (65-105) mg/dL Serum Osmolality (272-300) mosm/kg Lactic Acid (0.7-2.1) MMOL/L Calcium 8.3 L (8.4-10.2) mg/dL Phosphorus 1.6 L (2.5-4.5) mg/dl Magnesium 1.9 (1.6-2.3) MG/DL Total Bilirubin 0.7 (0.2-1.3) mg/dl AST 32 (14-36) U/L ALT 42 (9-52) U/L Alkaline Phosphatase 42 (38-126) U/L NT-Pro-B Natriuret Pep (0-900) pg/ml Total Protein 6.4 (6.3-8.2) G/DL Albumin 3.8 (3.5-5.0) g/dL Globulin 2.7 (2.2-3.9) gm/dL Albumin/Globulin Ratio 1.4 (1.0-2.1) Triglycerides (0-149) mg/DL Cholesterol (0-199) mg/dL LDL Cholesterol Direct (0-129) mg/dL HDL Cholesterol (30-70) MG/DL TSH 3rd Generation (0.46-4.68) mIU/ML Arterial Blood Potassium 2.9 L (3.6-5.2) mmol/L Urine Osmolality (300-1000) mosm/kg Stool Leukocytes, Qual (NEGATIVE) Urine Opiates Screen (NEGATIVE) Urine Methadone Screen (NEGATIVE) Ur Barbiturates Screen (NEGATIVE) Ur Phencyclidine Scrn (NEGATIVE) Ur Amphetamines Screen (NEGATIVE) U Benzodiazepines Scrn (NEGATIVE) U Oth Cocaine Metabols (NEGATIVE) U Cannabinoids Screen (NEGATIVE) 04/21/17 Range/Units 09:20 WBC (4.8-10.8) K/uL RBC (3.80-5.20) Mil/uL Hgb (12.0-16.0) g/dL Hct (34.0-47.0) % MCV (81.0-99.0) fl MCH (27.0-31.0) pg MCHC (33.0-37.0) g/dL RDW (11.5-14.5) % Plt Count (130-400) K/uL MPV (7.2-11.7) fl Neut % (Auto) (50.0-75.0) % Lymph % (Auto) (20.0-40.0) % [place] % (Auto) (0.0-10.0) % Eos % (Auto) (0.0-4.0) % Baso % (Auto) (0.0-2.0) % Neut # (1.8-7.0) K/uL Lymph # (1.0-4.3) K/uL Gosper # (0.0-0.8) K/uL Eos # (0.0-0.7) K/uL Baso # (0.0-0.2) K/uL pCO2 (35-45) mm/Hg pO2 (80-100) mm/Hg HCO3 (21-28) mmol/L ABG pH (7.35-7.45) ABG Total CO2 (22-28) mmol/L ABG O2 Saturation (95-98) % ABG Base Excess (-2.0-3.0) mmol/L Randy Test ABG Potassium (3.6-5.2) mmol/L A-a O2 Difference mm/Hg Sodium (132-148) mmol/L Chloride (98-107) mmol/L Glucose (65-105) mg/dL Lactate (0.7-2.1) mmol/L FiO2 % Potassium (3.6-5.0) MMOL/L Carbon Dioxide (22-30) mmol/L Anion Gap (10-20) BUN (7-17) mg/dl Creatinine (0.7-1.2) mg/dl Est GFR ( Amer) Est GFR (Non-Af Amer) Random Glucose (65-105) mg/dL Serum Osmolality (272-300) mosm/kg Lactic Acid (0.7-2.1) MMOL/L Calcium (8.4-10.2) mg/dL Phosphorus (2.5-4.5) mg/dl Magnesium (1.6-2.3) MG/DL Total Bilirubin (0.2-1.3) mg/dl AST (14-36) U/L ALT (9-52) U/L Alkaline Phosphatase (38-126) U/L NT-Pro-B Natriuret Pep (0-900) pg/ml Total Protein (6.3-8.2) G/DL Albumin (3.5-5.0) g/dL Globulin (2.2-3.9) gm/dL Albumin/Globulin Ratio (1.0-2.1) Triglycerides (0-149) mg/DL Cholesterol (0-199) mg/dL LDL Cholesterol Direct (0-129) mg/dL HDL Cholesterol (30-70) MG/DL TSH 3rd Generation (0.46-4.68) mIU/ML Arterial Blood Potassium (3.6-5.2) mmol/L Urine Osmolality (300-1000) mosm/kg Stool Leukocytes, Qual Negative (NEGATIVE) Urine Opiates Screen (NEGATIVE) Urine Methadone Screen (NEGATIVE) Ur Barbiturates Screen (NEGATIVE) Ur Phencyclidine Scrn (NEGATIVE) Ur Amphetamines Screen (NEGATIVE) U Benzodiazepines Scrn (NEGATIVE) U Oth Cocaine Metabols (NEGATIVE) U Cannabinoids Screen (NEGATIVE) Laboratory Results - last 24 hr 04/21/17 04/22/17 04/22/17 09:20 16:08 18:37 WBC 10.6 RBC 4.05 Hgb 12.6 Hct 37.3 MCV 92.1 MCH 31.1 H MCHC 33.8 RDW 12.2 Plt Count 109 L D MPV 8.6 Neut % (Auto) 77.2 H Lymph % (Auto) 9.8 L Gosper % (Auto) 12.8 H Eos % (Auto) 0.0 Baso % (Auto) 0.2 Neut # 8.2 H Lymph # 1.0 Gosper # 1.4 H Eos # 0.0 Baso # 0.0 pCO2 34 L pO2 70 L HCO3 27.1 ABG pH 7.49 H ABG Total CO2 26.9 ABG O2 Saturation 98.8 H ABG Base Excess 2.8 Randy Test Yes ABG Potassium 2.9 L A-a O2 Difference 37.0 Sodium 123.0 L Chloride 92.0 L Glucose 122 H Lactate 0.7 FiO2 21.0 Potassium Carbon Dioxide Anion Gap BUN Creatinine Est GFR ( Amer) Est GFR (Non-Af Amer) Random Glucose Serum Osmolality Lactic Acid Calcium Phosphorus Magnesium Total Bilirubin AST ALT Alkaline Phosphatase NT-Pro-B Natriuret Pep Total Protein Albumin Globulin Albumin/Globulin Ratio Triglycerides Cholesterol LDL Cholesterol Direct HDL Cholesterol TSH 3rd Generation Arterial Blood Potassium 2.9 L Urine Osmolality Stool Leukocytes, Qual Negative Urine Opiates Screen Urine Methadone Screen Ur Barbiturates Screen Ur Phencyclidine Scrn Ur Amphetamines Screen U Benzodiazepines Scrn U Oth Cocaine Metabols U Cannabinoids Screen 04/22/17 04/23/17 04/23/17 18:37 04:40 04:40 WBC 8.7 RBC 4.20 Hgb 13.2 Hct 38.1 MCV 90.8 MCH 31.6 H MCHC 34.8 RDW 12.3 Plt Count 100 L MPV Neut % (Auto) Lymph % (Auto) Gosper % (Auto) Eos % (Auto) Baso % (Auto) Neut # Lymph # Gosper # Eos # Baso # pCO2 pO2 HCO3 ABG pH ABG Total CO2 ABG O2 Saturation ABG Base Excess Randy Test ABG Potassium A-a O2 Difference Sodium 127 L Chloride 90 L Glucose Lactate FiO2 Potassium 3.3 L Carbon Dioxide 29 Anion Gap 11 BUN 7 Creatinine 0.4 L Est GFR ( Amer) > 60 Est GFR (Non-Af Amer) > 60 Random Glucose 92 Serum Osmolality Lactic Acid Calcium 8.3 L Phosphorus 1.6 L Magnesium 1.9 Total Bilirubin 0.7 AST 32 ALT 42 Alkaline Phosphatase 42 NT-Pro-B Natriuret Pep Total Protein 6.4 Albumin 3.8 Globulin 2.7 Albumin/Globulin Ratio 1.4 Triglycerides 99 Cholesterol 173 LDL Cholesterol Direct 105 HDL Cholesterol 39 TSH 3rd Generation Arterial Blood Potassium Urine Osmolality Stool Leukocytes, Qual Urine Opiates Screen Urine Methadone Screen Ur Barbiturates Screen Ur Phencyclidine Scrn Ur Amphetamines Screen U Benzodiazepines Scrn U Oth Cocaine Metabols U Cannabinoids Screen 04/23/17 04/23/17 04/23/17 04:40 04:40 08:21 WBC RBC Hgb Hct MCV MCH MCHC RDW Plt Count MPV Neut % (Auto) Lymph % (Auto) [place]per % (Auto) Eos % (Auto) Baso % (Auto) Neut # Lymph # Gosper # Eos # Baso # pCO2 pO2 HCO3 ABG pH ABG Total CO2 ABG O2 Saturation ABG Base Excess Randy Test ABG Potassium A-a O2 Difference Sodium 124 L Chloride 90 L Glucose Lactate FiO2 Potassium 3.1 L Carbon Dioxide 31 H Anion Gap 6 L BUN 5 L Creatinine 0.5 L Est GFR ( Amer) > 60 Est GFR (Non-Af Amer) > 60 Random Glucose 92 Serum Osmolality 259 L Lactic Acid Calcium 8.1 L Phosphorus Magnesium Total Bilirubin 0.8 AST 34 ALT 46 Alkaline Phosphatase 45 NT-Pro-B Natriuret Pep 1680 H Total Protein 6.6 Albumin 3.8 Globulin 2.8 Albumin/Globulin Ratio 1.3 Triglycerides Cholesterol LDL Cholesterol Direct HDL Cholesterol TSH 3rd Generation 0.17 L Arterial Blood Potassium Urine Osmolality Stool Leukocytes, Qual Urine Opiates Screen Urine Methadone Screen Ur Barbiturates Screen Ur Phencyclidine Scrn Ur Amphetamines Screen U Benzodiazepines Scrn U Oth Cocaine Metabols U Cannabinoids Screen 1204/23/17 04/23/17 08:21 11:35 11:40 WBC RBC Hgb Hct MCV MCH MCHC RDW Plt Count MPV Neut % (Auto) Lymph % (Auto) [place] % (Auto) Eos % (Auto) Baso % (Auto) Neut # Lymph # Gosper # Eos # Baso # pCO2 pO2 HCO3 ABG pH ABG Total CO2 ABG O2 Saturation ABG Base Excess Randy Test ABG Potassium A-a O2 Difference Sodium Chloride Glucose Lactate FiO2 Potassium Carbon Dioxide Anion Gap BUN Creatinine Est GFR ( Amer) Est GFR (Non-Af Amer) Random Glucose Serum Osmolality Lactic Acid 1.0 Calcium Phosphorus Magnesium Total Bilirubin AST ALT Alkaline Phosphatase NT-Pro-B Natriuret Pep 1600 H Total Protein Albumin Globulin Albumin/Globulin Ratio Triglycerides Cholesterol LDL Cholesterol Direct HDL Cholesterol TSH 3rd Generation Arterial Blood Potassium Urine Osmolality 540 Stool Leukocytes, Qual Urine Opiates Screen Urine Methadone Screen Ur Barbiturates Screen Ur Phencyclidine Scrn Ur Amphetamines Screen U Benzodiazepines Scrn U Oth Cocaine Metabols U Cannabinoids Screen 04/23/17 12:25 WBC RBC Hgb Hct MCV MCH MCHC RDW Plt Count MPV Neut % (Auto) Lymph % (Auto) [place] % (Auto) Eos % (Auto) Baso % (Auto) Neut # Lymph # [place] # Eos # Baso # pCO2 pO2 HCO3 ABG pH ABG Total CO2 ABG O2 Saturation ABG Base Excess Randy Test ABG Potassium A-a O2 Difference Sodium Chloride Glucose Lactate FiO2 Potassium Carbon Dioxide Anion Gap BUN Creatinine Est GFR ( Amer) Est GFR (Non-Af Amer) Random Glucose Serum Osmolality Lactic Acid Calcium Phosphorus Magnesium Total Bilirubin AST ALT Alkaline Phosphatase NT-Pro-B Natriuret Pep Total Protein Albumin Globulin Albumin/Globulin Ratio Triglycerides Cholesterol LDL Cholesterol Direct HDL Cholesterol TSH 3rd Generation Arterial Blood Potassium Urine Osmolality Stool Leukocytes, Qual Urine Opiates Screen Negative Urine Methadone Screen Negative Ur Barbiturates Screen Negative Ur Phencyclidine Scrn Negative Ur Amphetamines Screen Negative U Benzodiazepines Scrn Negative U Oth Cocaine Metabols Negative U Cannabinoids Screen Negative Review of Systems - Constitutional Constitutional: Fever, Chills, Weakness, Malaise Additional comments: limited history 2nd underlying mental status - Respiratory Respiratory: Excessive Mucous Production Critical Care Progress Note - Nutrition Nutrition: Nutrition Category Date Time Status Liquid Diet [DIET] Diets 04/21/17 Breakfast Active Assessment/Plan - Assessment and Plan (Free Text) Plan: 61 y/o female with pmx of chronic opiod use presents to [facility] with c/ o fevers and AMS. -AMS: in light of fevers, consider broad spectrum abx ofr both aspiration PNA( Commonly with AMS + opoids) adn consider viral encephalitis continue acyclovir, -RML PNA: check procalcitonin, lactic q4rs, and broad spectrum abx (vaco + aztreonaml + flagyl) (aspiration HAP/more than 48 hours) -CVA: MRI: official read (+)CVA; subacute.acute: continue treatment as per neurology , continue DAPT (asa/plavix) statin, consider GUDELIA, no signs of P. A- fib -Partial reason for AMS could be withdrawal or drug drug reaction, ropinorol + opoids cause severe sedation , d/c ropinirol, check serum drug and urine drug screen, continue long acting opoids, start colace/senna -Hyponatremia: possible legionalla (check culture and urine antien): QTC high, cannot continue cipro/levo, start doxycycline, urine osmol high c/w SIADH, nephrology eval, tolvaptan, free fluid restriction -Chronic diastolic heart failure: with pumonary HTN: avoid fluid overloaded states -Patient remains hemodyamically stable. -Patient admitted to ICU per family request for 1:1 AND 1:2 nursing ratio. -check and replace electrolytes: potassium, check mag/phos -Family requested transfer to [facility] -- [place] I-STOP database revealed no patient with above name and . Continue current management as consolidated consultants. d/w Dr. Tran - Date & Time Date: 04/23/17 Time: 08:45
[2017-04-23] MEDS ORDERED: Lidocaine 1% Inj (20ml) ONE (15:45)
--- NOTE | 2017-04-23 15:59 | PCM.SURG1 ---
Surgeon's Initial Post Op Note - Surgeon's Notes Surgeon: Ted Wilson MD [employer] Analyst: None Type of Anesthesia: Local Pre-Operative Diagnosis: IV antibiotics Operative Findings: patent right basilic vein. catheter length: 39 cm. catheter tip: cavoatrial junction Post-Operative Diagnosis: same Operation Performed: RUE PICC insertion Specimen/Specimens Removed: N/A Estimated Blood Loss: EBL {In ML}: 0 Date of Surgery/Procedure: 04/23/17 Time of Surgery/Procedure: 16:01
--- NOTE | 2017-04-23 16:53 | US ---
PROCEDURE: Bilateral lower extremity venous duplex Doppler. HISTORY: fever COMPARISON: None available. TECHNIQUE: Bilateral common femoral, superficial femoral, popliteal and posterior tibial veins were evaluated. Flow was assessed with color Doppler, compressibility, assessment of phasic flow and augmentation response. FINDINGS: COMMON FEMORAL VEIN: Right CFV: Unremarkable. Left CFV: Unremarkable. SUPERFICIAL FEMORAL VEIN: Right SFV: Unremarkable. Left SFV: Unremarkable. POPLITEAL VEIN: Right Popliteal: Unremarkable. Left Popliteal: Unremarkable. POSTERIOR TIBIAL VEIN: Right PTV: Unremarkable. Left PTV: Unremarkable. OTHER FINDINGS: None. IMPRESSION: No evidence of deep venous thrombosis.
--- NOTE | 2017-04-23 17:35 | US ---
PROCEDURE: Upper Extremity Venous Duplex Exam HISTORY: fever PRIORS: None. TECHNIQUE: Bilateral upper extremity, internal jugular, subclavian, axillary, brachial, ulnar, radial, basilic and upper cephalic veins were evaluated. Flow was assessed with color Doppler, compressibility, assessment of phasic flow and augmentation response. Report prepared by instrument technologist. FINDINGS: RIGHT: 1. Internal Jugular: 1.1. Compressibility - Fully compressible: Thrombus - None : Flow - Phasic: Augmentation -Normal: Reflux - None. 2. Subclavian: 2.1. Compressibility - Fully compressible: Thrombus - None : Flow - Phasic: Augmentation -Normal: Reflux - None. 3. Axillary: 3.1. Compressibility - Fully compressible: Thrombus - None : Flow - Phasic: Augmentation -Normal: Reflux - None. 4. Brachial: 4.1. Compressibility - Fully compressible: Thrombus - None: Flow - Phasic: Augmentation -Normal: Reflux - None. 5. Ulnar: 5.1. Not visualized 6. Radial: 6.1. Not visualized 7. Cephalic: 7.1. Not visualized 8. Basilic: 8.1. Not visualized LEFT: 1. Internal Jugular: 1.1. Compressibility - Fully compressible: Thrombus - None : Flow - Phasic: Augmentation -Normal: Reflux - None. 2. Subclavian: 2.1. Compressibility - Fully compressible: Thrombus - None : Flow - Phasic: Augmentation -Normal: Reflux - None. 3. Axillary: 3.1. Compressibility - Fully compressible: Thrombus - None : Flow - Phasic: Augmentation -Normal: Reflux - None. 4. Brachial: 4.1. Compressibility - Fully compressible: Thrombus - None: Flow - Phasic: Augmentation -Normal: Reflux - None. 5. Ulnar: 5.1. Compressibility - Fully compressible: Thrombus - None: Flow - Phasic: Augmentation -Normal: Reflux - None. 6. Radial: 6.1. Compressibility - Fully compressible: Thrombus - None: Flow - Phasic: Augmentation - Normal: Reflux - None. 7. Cephalic: 7.1. Not visualized 8. Basilic: 8.1. Not visualized OTHER FINDINGS: Right: None. Left: None. IMPRESSION: Right: No evidence of vein thrombosis of the right upper extremity with excellent venous flow. Normal valve function noted of the right side. Left: No evidence of vein thrombosis of the left upper extremity with excellent venous flow. Normal valve function noted of the left side.
[2017-04-23 19:15] LABS: ALB/GLOB RATIO 1.3 (1.0-2.1); ALBUMIN 3.4 g/dL (3.5-5.0); ALT/SGPT 47 U/L (9-52); AST/SGOT 31 U/L (14-36); BLOOD UREA NITROGEN 6 mg/dl (7-17); GFR AFRICAN-AMERICAN > 60; GFR NON-AFRICAN AMERICAN > 60; MAGNESIUM 1.8 MG/DL (1.6-2.3)
[2017-04-23] MEDS ORDERED: Acetaminophen 650mg/20.3ml solution UD PO PRN (20:39)
--- NOTE | 2017-04-23 21:12 | PN ---
DATE: 04/23/2017 NEUROLOGICAL FOLLOWUP EVALUATION NEUROLOGICAL PROBLEM: Change in mental status, seizures, fever with radiological evidence of right MCA stroke. PHYSICAL EXAMINATION: VITAL SIGNS: Blood pressure 165/82, mean arterial pressure of 100 and respiratory rate 18, temperature 98.5, pulse rate 90, regular. NEUROLOGIC: The patient is seen in the presence of all family members including son, daughter and her . The patient is holding the head with the ice pack on her neck and the armpit. The patient is arousable, answering questions. She moves all 4 extremities. Neck: No meningismus. No Kernig sign. Cranial nerve examination: Briefly examined. No cranial nerve paresis noted. She moves all 4 extremities. Deep tendon reflexes are intact. Plantars are downgoing. ASSESSMENT AND PLAN: Her recent workup and other specialist workup and treatment had been followed and reviewed and appreciated. The patient is on empiric antibiotics and antiviral drugs. The patient did request to have a repeat EEG and MR angiogram including carotid Doppler, which are all pending at present. Considering worsening her neuro status, change in mental status with the fever, the patient should have a spinal tap to rule out any meningeal or encephalitic process that could explain her problem. The patient's condition had been well discussed with all family members. They agreed with my decision. PROCEDURE NOTE: Under sterile precaution on left lateral position, the patient is cleaned on her lumbosacral region. Her spinal level L3 to L4 localized and under local anesthesia, spinal tap was performed. CSF is very clear, about 20 mL were drawn without any problem. There is no hemorrhagic tint from microscopic view. Fluid has been requested to sent for cell count, protein, glucose, Samina ink, Gram stain and all viral PCRs, VDRL, AFB PCR including West Nile virus, adenovirus, echovirus titers had been requested. Finally, the patient also requested to have a cytology to rule out any occult malignancy. Lab is advised to keep 3 mL of CSF for any future studies. The patient tolerated the whole procedure. The patient admitted to lie flat and extended discussion again with the family members. The patient should be hydrated well. Antibiotics all as per Infectious Disease recommendation. The patient is requested to have a repeat EEG and MRA including carotid Doppler to be done tomorrow. In the meantime, continue antiplatelets for stroke prophylaxis. Willie Ling MD
[2017-04-23 22:25] LABS: FLUID TYPE SPINAL FLUID
[2017-04-23 22:47] LABS: CSF APPEARANCE CLEAR/COLORLESS (CLEAR); CSF VOLUME 1 mL (0-1)
[2017-04-23 23:18] LABS: CSF MONO/MACROPHAGE 24 % (0-0)
[2017-04-24] MEDS: Acyclovir 500 MG in Sodium Chloride 0.9% 100 ML IV SCH ×3 (00:59→17:20)
[2017-04-24] MEDS ORDERED: Potassium Chl 20 mEq in NS 1,000 ML IV SCH (02:00)
[2017-04-24] MEDS: Aztreonam 2 GM in Sodium Chloride 0.9% 100 ML IVPB SCH ×3 (02:12→17:21)
[2017-04-24] MEDS: TAPENTADOL HCL 100 MG PO SCH ×4 (05:19→22:00)
[2017-04-24 05:49] LABS: HEMOGLOBIN 12.2 g/dL (12.0-16.0); MEAN CELL VOLUME 91.4 fl (81.0-99.0); MEAN CORPUSCULAR HEMOGLOBIN 31.7 pg (27.0-31.0); MEAN CORPUSCULAR HGB CONC 34.7 g/dL (33.0-37.0); RBC 3.85 Mil/uL (3.80-5.20); RED CELL DISTRIBUTION WIDTH 12.3 % (11.5-14.5); WHITE BLOOD COUNT 8.5 K/uL (4.8-10.8)
[2017-04-24 06:17] LABS: BLOOD UREA NITROGEN 7 mg/dl (7-17); CALCIUM 7.9 mg/dL (8.4-10.2); GFR AFRICAN-AMERICAN > 60; GFR NON-AFRICAN AMERICAN > 60
--- NOTE | 2017-04-24 08:07 | CT ---
PROCEDURE: CT HEAD WITHOUT CONTRAST. HISTORY: Mental status change COMPARISON: Unenhanced head CT 04/20/2017. TECHNIQUE: Axial computed tomography images were obtained through the head/brain without intravenous contrast. Radiation dose: Total exam DLP = 937.76 mGy-cm. This CT exam was performed using one or more of the following dose reduction techniques: Automated exposure control, adjustment of the mA and/or kV according to patient size, and/or use of iterative reconstruction technique. FINDINGS: Motion artifacts degrade the examination. HEMORRHAGE: No intracranial hemorrhage. BRAIN: Loss of corticomedullary differentiation is appreciate the right frontal and temporal lobes may have increased slightly from the distribution infarction seen on the prior brain MRI 04/22/2017. Mass effect and edema appears to have migrated somewhat more posteriorly at the right temporal lobe with still does not involve the entire lobe. A 4 mm leftward midline shift is identified but there is no significant narrowing of the basilar cisterns. Mild diffuse cerebral atrophy again appreciated. VENTRICLES: Unremarkable. No hydrocephalus. CALVARIUM: Unremarkable. PARANASAL SINUSES: Unremarkable as visualized. No significant inflammatory changes. MASTOID AIR CELLS: Unremarkable as visualized. No inflammatory changes. OTHER FINDINGS: None. IMPRESSION: A mild interval progression apparently anterior and middle sub distribution right MCA infarct appreciated without acute intracranial hemorrhage identified. Limited leftward midline shift of 4 mm is appreciated. Continued clinical and CT follow-up are advised.
--- NOTE | 2017-04-24 09:23 | VASCULAR ---
PROCEDURE: PERIPHERALLY INSERTED CENTRAL VENOUS CATHETER INSERTION CLINICAL HISTORY: 61-year-old female with poor IV access requiring IV antibiotics referred to Interventional Radiology for PICC insertion. PROCEDURE: 1. Focused ultrasound of the right upper extremity vasculature. 2. Ultrasound-guided access. 3. Insertion of peripherally inserted central venous catheter. 4. Fluoroscopic localization of catheter tip. PRE-PROCEDURE FINDINGS: 1. Patent right basilic vein. POST-PROCEDURE FINDINGS: 1. Placement of 5 Tajik double-lumen PICC. 2. Catheter length: 39 cm. 3. Catheter tip at cavoatrial junction. INTERVENTIONAL RADIOLOGIST: Ted Wilson M.D. (the attending was present for the entire procedure) ANESTHESIA: None. MEDICATION: Lidocaine 1% for local subcutaneous analgesia. COMPLICATIONS: None. RADIATION DOSE: Fluoroscopy Time: 191.4 seconds Cumulative Dose: 17.9 mGy PROCEDURE DESCRIPTION AND FINDINGS: The risks, benefits, alternatives and possible complications of the procedure were fully discussed; all questions were answered and informed consent was obtained. The patient was brought into the interventional suite and a pre-procedure 'time-out' was performed. The patient was brought into the interventional suite and a pre-procedure 'time-out' was performed. The patient was placed on the fluoroscopy table in the supine position. The right upper extremity was prepped and draped in the usual sterile fashion. Maximum sterile barrier precautions were maintained throughout the entire procedure. Preliminary ultrasound images of the right upper extremity vasculature demonstrate patency of the right basilic vein. Following subcutaneous infiltration of 1% lidocaine for local analgesia, under ultrasound guidance, a 21-gauge needle was advanced into the right basilic vein with real-time visualization of needle entry. The ultrasound images were permanently recorded and submitted to the PACS. A 0.018 guidewire was advanced centrally to the cavoatrial junction. A 5.5 Tajik peel-away sheath was advanced over the guidewire. After obtaining length measurement, a 5 Tajik double-lumen PICC was placed with the tip of the catheter at the cavoatrial junction. The total length of the catheter is 39 cm. The hub of the PICC was secured to the skin using a sterile adhesive bandage. The patient tolerated the procedure well without immediate post-procedure complications and was transferred back to the floor in stable condition. IMPRESSION: SUCCESSFUL INSERTION OF RIGHT UPPER EXTREMITY PICC. PICC OK TO USE.
--- NOTE | 2017-04-24 09:34 | RAD ---
HISTORY: pulmonary congestion COMPARISON: No prior. FINDINGS: A PICC catheter administered by a right upper extremity approach with tip terminating at the cavoatrial junction region. LUNGS: No active pulmonary disease bilaterally. Prior right basilar opacity likely reflected overlying soft tissue rather than airspace disease. PLEURA: No significant pleural effusion identified, no pneumothorax apparent. CARDIOVASCULAR: Cardiac silhouette appears stable. No pulmonary vascular derangement identified. OSSEOUS STRUCTURES: No significant abnormalities. VISUALIZED UPPER ABDOMEN: Normal. OTHER FINDINGS: None. IMPRESSION: No interval acute cardiopulmonary disease appreciated. Right PICC insertion identified as per above.
--- NOTE | 2017-04-24 10:40 | CON ---
DATE: 04/23/2017 REFERRING PHYSICIAN: Dr. Chris Farnsworth. REASON FOR CONSULTATION: Diarrhea, nausea, and vomiting. HISTORY OF PRESENT ILLNESS: This is a 61-year-old female who is admitted her, has a history of fibromyalgia on Vicodin and dependent on Soma; sleep apnea on CPAP; hyperlipidemia, abdominal pain, diarrhea for the past couple of days, multiple times a day, 6 to 7 times, nonbilious vomiting, nonbloody diarrhea which is since improving but is still ongoing. Currently lying but comfortable. She is a little bit a poor historian altered and unclear if baseline, but answering slowly but is conversant, lying, but comfortable, in no apparent distress. PAST MEDICAL HISTORY: As above. PAST SURGICAL HISTORY: As above. MEDICATIONS: Have been reviewed. REVIEW OF SYSTEMS: All other systems have been reviewed and are negative apart from the HPI. PHYSICAL EXAMINATION: GENERAL: A pleasant middle aged female lying in bed comfortably, in no apparent distress. VITAL SIGNS: During the hospital grossly unremarkable. HEENT: Head: Normocephalic, atraumatic. Eyes: Pupils are equally reactive to light bilaterally. No conjunctival pallor or icterus. NECK: Supple, normal range of motion. No lymphadenopathy appreciated. LUNGS: Coarse breath sounds bilaterally. HEART: S1 and S2. Regular rate and rhythm. No murmurs appreciated. ABDOMEN: Soft, nontender. Bowel sounds present. No rebound. No guarding. RECTAL: Deferred. EXTREMITIES: Pulses present bilaterally. SKIN: Warm, dry, and intact. NEUROLOGIC: Awake and oriented x2. LABORATORY DATA: All labs and relevant radiology have been reviewed. CAT scan done reveals no acute process. Labs show now WBC is normal at 8.2, hemoglobin 13.2, hematocrit 38.1, platelet count is about 100, 77%, improved from 91. Sodium 124, calcium 3.1. BNP is 1680. Urine toxicology is positive for opioids. C. difficile is negative, antigen. ASSESSMENT AND PLAN: This is a 61-year-old female with what appears to be gastroenteritis, unclear etiology but likely bacterial versus viral. RECOMMENDATIONS: Recommend checking a stool C&S, O&P. ID input appreciated. Supportive care for now. Unclear etiology for thrombocytopenia and hyponatremia, possibly could be early cirrhosis but the CAT scan is unremarkable. We will follow the patient with you. Thank you for the consult. Bradley Hassan MD/ PhD cc: Dr. Chris Farnsworth
--- NOTE | 2017-04-24 10:46 | CP.CCUPN ---
CCU Subjective - Physician Review Subjective (Free Text): The patient was Seen and examined by me at the bedside in the ICU, Medical records reviewed and Management issues were discussed and formulated with the house staff. 61 Years old Female with PMHx of HTN, Hyperlipidemia, RLS, Fibromyalgia and obstructive sleep apnea Who presents to the Emergency department on 04/20 complaining of abdominal pain, vomiting and diarrhea x4 days. The patients states that she had multiple episodes of non bloody, non bilious vomit and watery, non bloody diarrhea associated with epigastric pain but was still able to tolerate PO. The patient also states that she felt weak and was going to pass out while driving in a car day prior to admission, No LOC However as per records those who witnessed her pass out state that there was no convulsions or seizure like activity. Patient also reports that headaches are typical for her as she was diagnosed with migraine headaches in the past. Patient admitted to the telemetry with Altered mental status, Chronic pain syndrome and Witnessed seizure 04/22 ICU called for worsening MS, she is more disoriented, delirious and post Code Sepsis Patient was transferred to ICU for further neuro and sepsis work up She underwent Head MRI and Repeat Head CT scan both consistent with acute/ subacute sub distribution right MCA infarct L/P was done last night by neurology Today Patient more lethargic, moves all extremity, eyes closed. Opened them to calling of name and request, oriented x 1-2. She conrtinue to have fever spikes, cultures Negative to date Currently on IV Antibiotics as per ID NSR on the monitor MRA could not be completed bec she was moving and not following commands carotid doppler and Repeat EEG done today Started on IV Keppra 500 mg Q 12H today This morning labs revealed Leucocytosis trending down, stable renal function, Na 129 Family meeting held, We reviewed the rationale, risks, and alternatives to treatment with the patient. The patients family was given the opportunity to ask many questions which were answered to his satisfaction. 04/24/17 14:16 04/22/2017: MRI BRAIN WITHOUT CONTRAST IMPRESSION: Sub distribution right MCA acute/ subacute infarct affecting the right frontal and temporal lobes as discussed above. Limited local mass is appreciate without midline shift evident or significant impression upon the brainstem. Limited age-related neuro degenerative changes are identified which appear age- appropriate. 04/24/2017: CT HEAD WITHOUT CONTRAST. IMPRESSION: A mild interval progression apparently anterior and middle sub distribution right MCA infarct appreciated without acute intracranial hemorrhage identified. Limited leftward midline shift of 4 mm is appreciated. Continued clinical and CT follow-up are advised. Critical Care Time Spent (in minutes): 45 CCU Objective - Vital Signs / Intake & Output Vital Signs (Last 4 hours): Vital Signs Temp Pulse Resp BP Pulse Ox 04/24/17 08:00 98.2 F 84 32 H 122/84 100 Intake and Output (Last 8hrs): Intake & Output 04/23/17 04/24/17 04/24/17 22:59 06:59 14:59 Intake Total 700 930 Output Total 900 400 Balance -200 530 Intake: IV 400 540 Intake, Piggyback 200 350 Oral 100 40 Output: Urine 900 400 Urethral ([place]) 900 400 Other: # Bowel Movements 1 1 - Physical Exam Head: Positive for: Atraumatic, Other ((+) nuchal rigidity) Pupils: Positive for: PERRL Extroacular Muscles: Positive for: EOMI Conjunctiva: Positive for: Normal Ears: Positive for: Normal Mouth: Positive for: Moist Mucous Membranes Neck: Positive for: Meningeal Signs Respiratory/Chest: Positive for: Wheezes, Decreased Breath Sounds, Rales, Retracting, Rhonchi Cardiovascular: Positive for: Normal S1, S2, Tachycardic Abdomen: Positive for: Normal Bowel Sounds. Negative for: Tenderness, Distention, Peritoneal Signs Upper Extremity: Positive for: Normal Inspection Lower Extremity: Positive for: Normal Inspection Neurological: Negative for: GCS=15, CN II-XII Intact, Speech Normal Psychiatric: Positive for: Alert - Medications Active Medications: Active Medications Generic Name Dose Route Start Last Admin Trade Name Freq PRN Reason Stop Dose Admin Acetaminophen 650 mg 04/24/17 00:15 Tylenol 650mg/20.3ml Solution Ud PO Q4 PRN Temperature Acetaminophen 650 mg 04/24/17 03:20 04/24/17 04:19 Tylenol 650 Mg Supp GA 650 mg Q4 PRN Administration Fever >100.4 F Al Hydrox/Mg Hydrox/Simethicone 30 ml 04/22/17 20:13 Maalox Plus 30 Ml PO Q4 PRN Indigestion / Heartburn Atorvastatin Calcium 40 mg 04/23/17 09:00 04/24/17 09:00 Lipitor PO 40 mg DAILY MANDI Administration Clopidogrel Bisulfate 75 mg 04/23/17 09:00 04/24/17 09:00 Plavix PO 75 mg DAILY MANDI Administration Ferrous Sulfate 325 mg 04/23/17 09:00 04/24/17 08:58 Feosol PO 325 mg DAILY MANDI Administration Home Med 10 mg 04/22/17 20:13 04/23/17 20:55 Hydrocodone/Acetaminophen [Hydrocodone-Acetamin 10-325 Mg] PO 10 mg Q6 PRN Administration Pain, moderate (4-7) Home Med 1 mg 04/22/17 21:00 04/23/17 21:51 Ropinirole Hcl [Ropinirole Hcl] PO 1 mg Q12 MANDI Administration Home Med 100 mg 04/22/17 22:45 04/24/17 09:03 Tapentadol Hcl [Nucynta] PO 100 mg Q8@0500,1300,2100 MANDI Administration Aztreonam 2 gm/ Sodium 100 mls @ 100 mls/hr 04/23/17 10:15 04/24/17 02:12 Chloride IVPB 100 mls/hr Q8H MANDI Administration Protocol Vancomycin HCl 1 gm/ Sodium 250 mls @ 166.667 mls/hr 04/23/17 10:15 04/23/17 22:30 Chloride IVPB 166.667 mls/hr Q12H MANDI Administration Protocol Acyclovir 500 mg/ Sodium 100 mls @ 100 mls/hr 04/23/17 10:30 04/24/17 09:05 Chloride IV 100 mls/hr Q8 MANDI Administration Protocol Doxycycline Hyclate 100 mg/ 100 mls @ 100 mls/hr 04/23/17 21:00 04/24/17 09: 04 Sodium Chloride IVPB 100 mls/hr Q12 MANDI Administration Protocol Potassium Chloride/Sodium Chloride 1,000 mls @ 60 mls/hr 04/24/17 02:00 04/24 02:00 Potassium Chl 20 Meq In Ns IV 60 mls/hr .[id number] MANDI Administration Levetiracetam 500 mg/ Sodium 105 mls @ 210 mls/hr 04/24/17 09:45 Chloride IVPB Q12 MANDI Ibuprofen 600 mg 04/24/17 03:18 Motrin Oral Susp PO Q6 PRN Temperature Metronidazole 500 mg 04/23/17 17:00 04/24/17 08:59 Flagyl PO 500 mg Q8 MANDI Administration Protocol Ondansetron HCl 4 mg 04/22/17 20:13 Zofran Inj IVP Q4 PRN Nausea/Vomiting Potassium Chloride 40 meq 04/23/17 09:00 04/23/17 09:11 K-Dur 20 Meq Er Tab PO 40 meq DAILY AMNDI Administration - Patient Studies Lab Studies: Microbiology Studies 04/21/17 09:20 Stool Culture - Final Stool NO SALMONELLA, SHIGELLA OR CAMPYLOBACTER ISOLATED. 04/21/17 07:50 Blood Culture - Preliminary Blood NO GROWTH AFTER 3 DAYS 04/21/17 22:20 Blood Culture - Preliminary Blood-Venous NO GROWTH AFTER 48 HOURS 04/23/17 12:19 Ova and Parasite Concentrate Exam - Final Rectum 04/20/17 11:55 Blood Culture - Preliminary Blood-Venous NO GROWTH AFTER 3 DAYS 04/21/17 09:13 Urine Culture - Final Urine,Clean Catch No Growth (<1,000 CFU/ML) Lab Studies 04/24/17 04/24/17 04/23/17 Range/Units 04:35 04:35 22:18 WBC 8.5 (4.8-10.8) K/uL RBC 3.85 (3.80-5.20) Mil/uL Hgb 12.2 (12.0-16.0) g/dL Hct 35.2 (34.0-47.0) % MCV 91.4 (81.0-99.0) fl MCH 31.7 H (27.0-31.0) pg MCHC 34.7 (33.0-37.0) g/dL RDW 12.3 (11.5-14.5) % Plt Count 131 (130-400) K/uL Sodium 129 L (132-148) mmol/l Potassium 4.0 (3.6-5.0) MMOL/L Chloride 100 (98-107) mmol/L Carbon Dioxide 24 (22-30) mmol/L Anion Gap 9 L (10-20) BUN 7 (7-17) mg/dl Creatinine 0.5 L (0.7-1.2) mg/dl Est GFR ( Amer) > 60 Est GFR (Non-Af Amer) > 60 Random Glucose 97 (65-105) mg/dL Hemoglobin A1c (4.2-6.5) % Lactic Acid (0.7-2.1) MMOL/L Calcium 7.9 L (8.4-10.2) mg/dL Phosphorus (2.5-4.5) mg/dl Magnesium (1.6-2.3) MG/DL Total Bilirubin (0.2-1.3) mg/dl AST (14-36) U/L ALT (9-52) U/L Alkaline Phosphatase (38-126) U/L NT-Pro-B Natriuret Pep (0-900) pg/ml Total Protein (6.3-8.2) G/DL Albumin (3.5-5.0) g/dL Globulin (2.2-3.9) gm/dL Albumin/Globulin Ratio (1.0-2.1) Procalcitonin (0.19-0.49) NG/ML Fluid Type CSF Volume (0-1) mL CSF Appearance (CLEAR) CSF WBC (0.0-5.0) /mm3 CSF RBC (0.0-0.0) /mm3 CSF Total Cell Counted (0-0) CSF Neutrophils (0-0) % CSF Lymphocytes (0-0) % CSF Monos/Macrophages (0-0) % CSF Comment CSF Glucose 47 (40-70) mg/dL CSF Total Protein 114.0 H* (12-60) mg/dL Urine Opiates Screen (NEGATIVE) Urine Methadone Screen (NEGATIVE) Ur Barbiturates Screen (NEGATIVE) Ur Phencyclidine Scrn (NEGATIVE) Ur Amphetamines Screen (NEGATIVE) U Benzodiazepines Scrn (NEGATIVE) U Oth Cocaine Metabols (NEGATIVE) U Cannabinoids Screen (NEGATIVE) Rheumatoid Factor IgG (<=6) U Rheumatoid Factor IgA (<=6) U Lyme Disease Screen index HIV-1 Ab Rapid Screen (NON REAC) 04/23/17 04/23/17 04/23/17 Range/Units 22:18 18:54 18:52 WBC (4.8-10.8) K/uL RBC (3.80-5.20) Mil/uL Hgb (12.0-16.0) g/dL Hct (34.0-47.0) % MCV (81.0-99.0) fl MCH (27.0-31.0) pg MCHC (33.0-37.0) g/dL RDW (11.5-14.5) % Plt Count (130-400) K/uL Sodium 127 L (132-148) mmol/l Potassium 3.7 (3.6-5.0) MMOL/L Chloride 93 L (98-107) mmol/L Carbon Dioxide 30 (22-30) mmol/L Anion Gap 8 L (10-20) BUN 6 L (7-17) mg/dl Creatinine 0.4 L (0.7-1.2) mg/dl Est GFR ( Amer) > 60 Est GFR (Non-Af Amer) > 60 Random Glucose 90 (65-105) mg/dL Hemoglobin A1c (4.2-6.5) % Lactic Acid 0.9 (0.7-2.1) MMOL/L Calcium 8.0 L (8.4-10.2) mg/dL Phosphorus 1.2 L (2.5-4.5) mg/dl Magnesium 1.8 (1.6-2.3) MG/DL Total Bilirubin 0.5 (0.2-1.3) mg/dl AST 31 (14-36) U/L ALT 47 (9-52) U/L Alkaline Phosphatase 40 (38-126) U/L NT-Pro-B Natriuret Pep (0-900) pg/ml Total Protein 6.0 L (6.3-8.2) G/DL Albumin 3.4 L (3.5-5.0) g/dL Globulin 2.6 (2.2-3.9) gm/dL Albumin/Globulin Ratio 1.3 (1.0-2.1) Procalcitonin (0.19-0.49) NG/ML Fluid Type Spinal fluid CSF Volume 1 (0-1) mL CSF Appearance Clear/colorless (CLEAR) CSF WBC 2.0 (0.0-5.0) /mm3 CSF RBC 10.0 H (0.0-0.0) /mm3 CSF Total Cell Counted 100 H (0-0) CSF Neutrophils 21 H (0-0) % CSF Lymphocytes 55.0 H (0-0) % CSF Monos/Macrophages 24 H (0-0) % CSF Comment Colorless CSF Glucose (40-70) mg/dL CSF Total Protein (12-60) mg/dL Urine Opiates Screen (NEGATIVE) Urine Methadone Screen (NEGATIVE) Ur Barbiturates Screen (NEGATIVE) Ur Phencyclidine Scrn (NEGATIVE) Ur Amphetamines Screen (NEGATIVE) U Benzodiazepines Scrn (NEGATIVE) U Oth Cocaine Metabols (NEGATIVE) U Cannabinoids Screen (NEGATIVE) Rheumatoid Factor IgG (<=6) U Rheumatoid Factor IgA (<=6) U Lyme Disease Screen index HIV-1 Ab Rapid Screen (NON REAC) 04/23/17 04/23/17 04/23/17 Range/Units 18:52 12:39 12:25 WBC (4.8-10.8) K/uL RBC (3.80-5.20) Mil/uL Hgb (12.0-16.0) g/dL Hct (34.0-47.0) % MCV (81.0-99.0) fl MCH (27.0-31.0) pg MCHC (33.0-37.0) g/dL RDW (11.5-14.5) % Plt Count (130-400) K/uL Sodium (132-148) mmol/l Potassium (3.6-5.0) MMOL/L Chloride (98-107) mmol/L Carbon Dioxide (22-30) mmol/L Anion Gap (10-20) BUN (7-17) mg/dl Creatinine (0.7-1.2) mg/dl Est GFR ( Amer) Est GFR (Non-Af Amer) Random Glucose (65-105) mg/dL Hemoglobin A1c (4.2-6.5) % Lactic Acid (0.7-2.1) MMOL/L Calcium (8.4-10.2) mg/dL Phosphorus (2.5-4.5) mg/dl Magnesium (1.6-2.3) MG/DL Total Bilirubin (0.2-1.3) mg/dl AST (14-36) U/L ALT (9-52) U/L Alkaline Phosphatase (38-126) U/L NT-Pro-B Natriuret Pep (0-900) pg/ml Total Protein (6.3-8.2) G/DL Albumin (3.5-5.0) g/dL Globulin (2.2-3.9) gm/dL Albumin/Globulin Ratio (1.0-2.1) Procalcitonin (0.19-0.49) NG/ML Fluid Type CSF Volume (0-1) mL CSF Appearance (CLEAR) CSF WBC (0.0-5.0) /mm3 CSF RBC (0.0-0.0) /mm3 CSF Total Cell Counted (0-0) CSF Neutrophils (0-0) % CSF Lymphocytes (0-0) % CSF Monos/Macrophages (0-0) % CSF Comment CSF Glucose (40-70) mg/dL CSF Total Protein (12-60) mg/dL Urine Opiates Screen Negative (NEGATIVE) Urine Methadone Screen Negative (NEGATIVE) Ur Barbiturates Screen Negative (NEGATIVE) Ur Phencyclidine Scrn Negative (NEGATIVE) Ur Amphetamines Screen Negative (NEGATIVE) U Benzodiazepines Scrn Negative (NEGATIVE) U Oth Cocaine Metabols Negative (NEGATIVE) U Cannabinoids Screen Negative (NEGATIVE) Rheumatoid Factor IgG (<=6) U Rheumatoid Factor IgA (<=6) U Lyme Disease Screen <0.90 index HIV-1 Ab Rapid Screen Non reactive (NON REAC) 04/23/17 04/23/17 04/23/17 Range/Units 11:40 11:35 11:35 WBC (4.8-10.8) K/uL RBC (3.80-5.20) Mil/uL Hgb (12.0-16.0) g/dL Hct (34.0-47.0) % MCV (81.0-99.0) fl MCH (27.0-31.0) pg MCHC (33.0-37.0) g/dL RDW (11.5-14.5) % Plt Count (130-400) K/uL Sodium (132-148) mmol/l Potassium (3.6-5.0) MMOL/L Chloride (98-107) mmol/L Carbon Dioxide (22-30) mmol/L Anion Gap (10-20) BUN (7-17) mg/dl Creatinine (0.7-1.2) mg/dl Est GFR ( Amer) Est GFR (Non-Af Amer) Random Glucose (65-105) mg/dL Hemoglobin A1c (4.2-6.5) % Lactic Acid 1.0 (0.7-2.1) MMOL/L Calcium (8.4-10.2) mg/dL Phosphorus (2.5-4.5) mg/dl Magnesium (1.6-2.3) MG/DL Total Bilirubin (0.2-1.3) mg/dl AST (14-36) U/L ALT (9-52) U/L Alkaline Phosphatase (38-126) U/L NT-Pro-B Natriuret Pep 1600 H (0-900) pg/ml Total Protein (6.3-8.2) G/DL Albumin (3.5-5.0) g/dL Globulin (2.2-3.9) gm/dL Albumin/Globulin Ratio (1.0-2.1) Procalcitonin 0.09 L (0.19-0.49) NG/ML Fluid Type CSF Volume (0-1) mL CSF Appearance (CLEAR) CSF WBC (0.0-5.0) /mm3 CSF RBC (0.0-0.0) /mm3 CSF Total Cell Counted (0-0) CSF Neutrophils (0-0) % CSF Lymphocytes (0-0) % CSF Monos/Macrophages (0-0) % CSF Comment CSF Glucose (40-70) mg/dL CSF Total Protein (12-60) mg/dL Urine Opiates Screen (NEGATIVE) Urine Methadone Screen (NEGATIVE) Ur Barbiturates Screen (NEGATIVE) Ur Phencyclidine Scrn (NEGATIVE) Ur Amphetamines Screen (NEGATIVE) U Benzodiazepines Scrn (NEGATIVE) U Oth Cocaine Metabols (NEGATIVE) U Cannabinoids Screen (NEGATIVE) Rheumatoid Factor IgG (<=6) U Rheumatoid Factor IgA (<=6) U Lyme Disease Screen index HIV-1 Ab Rapid Screen (NON REAC) 04/23/17 04/21/17 Range/Units 04:40 04:20 WBC (4.8-10.8) K/uL RBC (3.80-5.20) Mil/uL Hgb (12.0-16.0) g/dL Hct (34.0-47.0) % MCV (81.0-99.0) fl MCH (27.0-31.0) pg MCHC (33.0-37.0) g/dL RDW (11.5-14.5) % Plt Count (130-400) K/uL Sodium (132-148) mmol/l Potassium (3.6-5.0) MMOL/L Chloride (98-107) mmol/L Carbon Dioxide (22-30) mmol/L Anion Gap (10-20) BUN (7-17) mg/dl Creatinine (0.7-1.2) mg/dl Est GFR ( Amer) Est GFR (Non-Af Amer) Random Glucose (65-105) mg/dL Hemoglobin A1c 5.3 (4.2-6.5) % Lactic Acid (0.7-2.1) MMOL/L Calcium (8.4-10.2) mg/dL Phosphorus (2.5-4.5) mg/dl Magnesium (1.6-2.3) MG/DL Total Bilirubin (0.2-1.3) mg/dl AST (14-36) U/L ALT (9-52) U/L Alkaline Phosphatase (38-126) U/L NT-Pro-B Natriuret Pep (0-900) pg/ml Total Protein (6.3-8.2) G/DL Albumin (3.5-5.0) g/dL Globulin (2.2-3.9) gm/dL Albumin/Globulin Ratio (1.0-2.1) Procalcitonin (0.19-0.49) NG/ML Fluid Type CSF Volume (0-1) mL CSF Appearance (CLEAR) CSF WBC (0.0-5.0) /mm3 CSF RBC (0.0-0.0) /mm3 CSF Total Cell Counted (0-0) CSF Neutrophils (0-0) % CSF Lymphocytes (0-0) % CSF Monos/Macrophages (0-0) % CSF Comment CSF Glucose (40-70) mg/dL CSF Total Protein (12-60) mg/dL Urine Opiates Screen (NEGATIVE) Urine Methadone Screen (NEGATIVE) Ur Barbiturates Screen (NEGATIVE) Ur Phencyclidine Scrn (NEGATIVE) Ur Amphetamines Screen (NEGATIVE) U Benzodiazepines Scrn (NEGATIVE) U Oth Cocaine Metabols (NEGATIVE) U Cannabinoids Screen (NEGATIVE) Rheumatoid Factor IgG <5 (<=6) U Rheumatoid Factor IgA <5 (<=6) U Lyme Disease Screen index HIV-1 Ab Rapid Screen (NON REAC) Laboratory Results - last 24 hr 04/21/17 04/23/17 04/23/17 04:20 04:40 11:35 WBC RBC Hgb Hct MCV MCH MCHC RDW Plt Count Sodium Potassium Chloride Carbon Dioxide Anion Gap BUN Creatinine Est GFR ( Amer) Est GFR (Non-Af Amer) Random Glucose Hemoglobin A1c 5.3 Lactic Acid Calcium Phosphorus Magnesium Total Bilirubin AST ALT Alkaline Phosphatase NT-Pro-B Natriuret Pep 1600 H Total Protein Albumin Globulin Albumin/Globulin Ratio Procalcitonin Fluid Type CSF Volume CSF Appearance CSF WBC CSF RBC CSF Total Cell Counted CSF Neutrophils CSF Lymphocytes CSF Monos/Macrophages CSF Comment CSF Glucose CSF Total Protein Urine Opiates Screen Urine Methadone Screen Ur Barbiturates Screen Ur Phencyclidine Scrn Ur Amphetamines Screen U Benzodiazepines Scrn U Oth Cocaine Metabols U Cannabinoids Screen Rheumatoid Factor IgG <5 Rheumatoid Factor IgA <5 Lyme Disease Screen HIV-1 Ab Rapid Screen 04/23/17 04/23/17 04/23/17 11:35 11:40 12:25 WBC RBC Hgb Hct MCV MCH MCHC RDW Plt Count Sodium Potassium Chloride Carbon Dioxide Anion Gap BUN Creatinine Est GFR ( Amer) Est GFR (Non-Af Amer) Random Glucose Hemoglobin A1c Lactic Acid 1.0 Calcium Phosphorus Magnesium Total Bilirubin AST ALT Alkaline Phosphatase NT-Pro-B Natriuret Pep Total Protein Albumin Globulin Albumin/Globulin Ratio Procalcitonin 0.09 L Fluid Type CSF Volume CSF Appearance CSF WBC CSF RBC CSF Total Cell Counted CSF Neutrophils CSF Lymphocytes CSF Monos/Macrophages CSF Comment CSF Glucose CSF Total Protein Urine Opiates Screen Negative Urine Methadone Screen Negative Ur Barbiturates Screen Negative Ur Phencyclidine Scrn Negative Ur Amphetamines Screen Negative U Benzodiazepines Scrn Negative U Oth Cocaine Metabols Negative U Cannabinoids Screen Negative Rheumatoid Factor IgG Rheumatoid Factor IgA Lyme Disease Screen HIV-1 Ab Rapid Screen 04/23/17 04/23/17 04/23/17 12:39 18:52 18:52 WBC RBC Hgb Hct MCV MCH MCHC RDW Plt Count Sodium 127 L Potassium 3.7 Chloride 93 L Carbon Dioxide 30 Anion Gap 8 L BUN 6 L Creatinine 0.4 L Est GFR ( Amer) > 60 Est GFR (Non-Af Amer) > 60 Random Glucose 90 Hemoglobin A1c Lactic Acid Calcium 8.0 L Phosphorus 1.2 L Magnesium 1.8 Total Bilirubin 0.5 AST 31 ALT 47 Alkaline Phosphatase 40 NT-Pro-B Natriuret Pep Total Protein 6.0 L Albumin 3.4 L Globulin 2.6 Albumin/Globulin Ratio 1.3 Procalcitonin Fluid Type CSF Volume CSF Appearance CSF WBC CSF RBC CSF Total Cell Counted CSF Neutrophils CSF Lymphocytes CSF Monos/Macrophages CSF Comment CSF Glucose CSF Total Protein Urine Opiates Screen Urine Methadone Screen Ur Barbiturates Screen Ur Phencyclidine Scrn Ur Amphetamines Screen U Benzodiazepines Scrn U Oth Cocaine Metabols U Cannabinoids Screen Rheumatoid Factor IgG Rheumatoid Factor IgA Lyme Disease Screen <0.90 HIV-1 Ab Rapid Screen Non reactive 04/23/17 04/23/17 04/23/17 18:54 22:18 22:18 WBC RBC Hgb Hct MCV MCH MCHC RDW Plt Count Sodium Potassium Chloride Carbon Dioxide Anion Gap BUN Creatinine Est GFR ( Amer) Est GFR (Non-Af Amer) Random Glucose Hemoglobin A1c Lactic Acid 0.9 Calcium Phosphorus Magnesium Total Bilirubin AST ALT Alkaline Phosphatase NT-Pro-B Natriuret Pep Total Protein Albumin Globulin Albumin/Globulin Ratio Procalcitonin Fluid Type Spinal fluid CSF Volume 1 CSF Appearance Clear/colorless CSF WBC 2.0 CSF RBC 10.0 H CSF Total Cell Counted 100 H CSF Neutrophils 21 H CSF Lymphocytes 55.0 H CSF Monos/Macrophages 24 H CSF Comment Colorless CSF Glucose 47 CSF Total Protein 114.0 H* Urine Opiates Screen Urine Methadone Screen Ur Barbiturates Screen Ur Phencyclidine Scrn Ur Amphetamines Screen U Benzodiazepines Scrn U Oth Cocaine Metabols U Cannabinoids Screen Rheumatoid Factor IgG Rheumatoid Factor IgA Lyme Disease Screen HIV-1 Ab Rapid Screen 04/24/17 04/24/17 04:35 04:35 WBC 8.5 RBC 3.85 Hgb 12.2 Hct 35.2 MCV 91.4 MCH 31.7 H MCHC 34.7 RDW 12.3 Plt Count 131 Sodium 129 L Potassium 4.0 Chloride 100 Carbon Dioxide 24 Anion Gap 9 L BUN 7 Creatinine 0.5 L Est GFR ( Amer) > 60 Est GFR (Non-Af Amer) > 60 Random Glucose 97 Hemoglobin A1c Lactic Acid Calcium 7.9 L Phosphorus Magnesium Total Bilirubin AST ALT Alkaline Phosphatase NT-Pro-B Natriuret Pep Total Protein Albumin Globulin Albumin/Globulin Ratio Procalcitonin Fluid Type CSF Volume CSF Appearance CSF WBC CSF RBC CSF Total Cell Counted CSF Neutrophils CSF Lymphocytes CSF Monos/Macrophages CSF Comment CSF Glucose CSF Total Protein Urine Opiates Screen Urine Methadone Screen Ur Barbiturates Screen Ur Phencyclidine Scrn Ur Amphetamines Screen U Benzodiazepines Scrn U Oth Cocaine Metabols U Cannabinoids Screen Rheumatoid Factor IgG Rheumatoid Factor IgA Lyme Disease Screen HIV-1 Ab Rapid Screen Critical Care Progress Note - Extremities/Vascular Does the Patient have a Central Venous Catheter?: Yes (RUE PICC line) Does the Patient need a Central Venous Catheter?: Yes - Nutrition Nutrition: Nutrition Category Date Time Status Liquid Diet [DIET] Diets 04/21/17 Breakfast Active Assessment/Plan (1) Altered mental status Current Visit: Yes Status: Acute Comment: Altered mental status likely Metabolic Encephalopathy plis She underwent Head MRI and Repeat Head CT scan both consistent with acute/subacute sub distribution right MCA infarct Neuro and neurosurgery consult appretiated Frequent neuro check 1:1 constant observation (2) Severe sepsis Current Visit: Yes Status: Acute Comment: Sec to pneumonia Vs colitis Vs meningitis (LP done very clear and only 2 WBC) Continue IV Vanco, Doxycycline, Aztreonam and Metronidazole (Flagyl) PRN Tylenol, cooling blanket, PRN NSAIDs (3) C. difficile colitis Current Visit: Yes Status: Acute Comment: Metronidazole 500 mg PO Q8 MANDI Hydrations GI and ID Consult appretiated (4) Dehydration Current Visit: Yes Status: Acute (5) Witnessed seizure Current Visit: Yes Status: Acute Priority: Low Comment: Neuro Consult carotid doppler and Repeat EEG done today Started on IV Keppra 500 mg Q 12H today Seizure precutions (6) Chronic pain syndrome Current Visit: Yes Status: Chronic Priority: Medium Comment: Vicodin PRN (7) Headache Current Visit: Yes Status: Acute (8) DILIA (obstructive sleep apnea) Current Visit: Yes Status: Chronic Priority: Low Comment: Nocturnal CPAP
--- NOTE | 2017-04-24 11:37 | CARD ---
APPROVED REPORT EXAM: Two-dimensional and M-mode echocardiogram with Doppler and color Doppler. Other Information Quality : GoodRhythm : NSR INDICATION CVA/TIA Echo Enhancing Agent Indication: Rule Out Septal Defect Agent/Amount Used: Agitated Saline 2D DIMENSIONS IVSd1.19 (0.7-1.1cm)LVDd3.32 (3.9-5.9cm) LVOT Diameter2.43 (1.8-2.4cm)PWd1.26 (0.7-1.1cm) IVSs1.51 (0.8-1.2cm)LVDs2.31 (2.5-4.0cm) FS (%) 30.6 %PWs1.49 (0.8-1.2cm) M-Mode DIMENSIONS Left Atrium (MM)3.39 (2.5-4.0cm)IVSd1.30 (0.7-1.1cm) Aortic Root3.12 (2.2-3.7cm)LVDd5.13 (4.0-5.6cm) Aortic Cusp Exc.1.82 (1.5-2.0cm)PWd0.97 (0.7-1.1cm) IVSs1.68 cmFS (%) 37 % LVDs3.25 (2.0-3.8cm)PWs1.32 cm Aortic Valve AoV Peak Ltzgsxes659.3cm/sAoV VTI58.9cmAO Peak GR.35mmHg LVOT Peak Hyupducb37.0cm/sLVOT VTI19.08cmAO Mean GR.21mmHg HARESH (VMAX)0.53ca5LUC (VTI)0.81cm2 Mitral Valve MV E Yhcdftpc21.8cm/sMV DECEL [id number] A Dpbxkqpx51.4cm/s MV JRU76xjE/A ratio0.6MVA (PHT)4.47cm2 TDI Lateral E' Peak V9.04cm/sMedial E' Peak V7.50cm/sE/Lateral E'5.7 E/Medial E'6.9 Pulmonary Valve PV Peak Qdcjmuua289.0cm/s LEFT VENTRICLE The left ventricle is normal size. There is normal left ventricular wall thickness. The left ventricular function is normal. The left ventricular ejection fraction is within the normal range. The Ejection Fraction is 60-65%. There is normal LV segmental wall motion. The left ventricular diastolic function is normal. No left ventricle thrombus noted on this study. There is no mass noted in the left ventricle. RIGHT VENTRICLE The right ventricle is normal size. There is normal right ventricular wall thickness. The right ventricular systolic function is normal. ATRIA The left atrium size is normal. The right atrium size is normal. AORTIC VALVE The aortic valve is mildly to moderately thickened. No aortic regurgitation is present. There is moderate valvular aortic stenosis. There is no aortic valvular vegetation. MITRAL VALVE The mitral valve is normal in structure. There is no evidence of mitral valve prolapse. There is no mitral valve stenosis. There is no mitral valve regurgitation noted. TRICUSPID VALVE The tricuspid valve is normal in structure. There is no tricuspid valve regurgitation noted. There is no tricuspid valve prolapse or vegetation. There is no tricuspid valve stenosis. PULMONIC VALVE The pulmonary valve is normal in structure. There is no pulmonic valvular regurgitation. There is no pulmonic valvular stenosis. GREAT VESSELS The aortic root is normal in size. The IVC is normal in size and collapses >50% with inspiration. PERICARDIAL EFFUSION The pericardium appears normal. <Conclusion> The left ventricle is normal size. The left ventricular function is normal. The left ventricular ejection fraction is within the normal range. The Ejection Fraction is 60-65%. No left ventricle thrombus noted on this study. The aortic valve is mildly to moderately thickened. There is moderate valvular aortic stenosis.
--- NOTE | 2017-04-24 11:42 | CP.PCM.CON ---
History of Present Illness - History of Present Illness History of Present Illness: A 61 year old female with a past medical history of Fibromyalgia on Vicodin and Tapentadol , RLS on Soma, DILIA on CPAP, hypertension & Hyperlipidemia presents to the ED complaining of abdominal pain, vomiting and diarrhea x4 days Pt had seizure while in hospital pt is lethargic (sedated for MRI) Cardiology consult called to r/o emboli originating from heart Echo: No evidence of thrombi / or vegetation Mod Good LV function EF: 60 - 65% Past Patient History - Past Medical History & Family History Past Medical History?: Yes Past Family History: Reviewed and not pertinent - Past Social History Smoking Status: Never Smoked Alcohol: None Drugs: Denies - CARDIAC Hx Hypertension: Yes - PULMONARY Hx Sleep Apnea: Yes - RENAL Hx Chronic Kidney Disease: No - ENDOCRINE/METABOLIC Hx Endocrine Disorders: No - HEMATOLOGICAL/ONCOLOGICAL Hx Blood Disorders: No - MUSCULOSKELETAL/RHEUMATOLOGICAL Hx Falls: Yes - PSYCHIATRIC Hx Substance Use: No - SURGICAL HISTORY Hx Cholecystectomy: Yes - ANESTHESIA Hx Anesthesia: No Meds Allergies/Adverse Reactions: Allergies Allergy/AdvReac Type Severity Reaction Status Date / Time cefaclor [From [facility]] Allergy RASH Verified 04/20/17 11:06 - Medications Medications: Current Medications Acetaminophen (Tylenol 650mg/20.3ml Solution Ud) 650 mg PO Q4 PRN PRN Reason: Temperature Acetaminophen (Tylenol 650 Mg Supp) 650 mg [place] Q4 PRN PRN Reason: Fever >100.4 F Last Admin: 04/24/17 04:19 Dose: 650 mg Al Hydrox/Mg Hydrox/Simethicone (Maalox Plus 30 Ml) 30 ml PO Q4 PRN PRN Reason: Indigestion / Heartburn Atorvastatin Calcium (Lipitor) 40 mg PO DAILY [facility] Last Admin: 04/24/17 09:00 Dose: 40 mg Clopidogrel Bisulfate (Plavix) 75 mg PO DAILY [facility] Last Admin: 04/24/17 09:00 Dose: 75 mg Ferrous Sulfate (Feosol) 325 mg PO DAILY [facility] Last Admin: 04/24/17 08:58 Dose: 325 mg Home Med (Hydrocodone/Acetaminophen [Hydrocodone-Acetamin 10-325 Mg]) 10 mg PO Q6 PRN PRN Reason: Pain, moderate (4-7) Last Admin: 04/23/17 20:55 Dose: 10 mg Home Med (Ropinirole Hcl [Ropinirole Hcl]) 1 mg PO Q12 [facility] Last Admin: 04/23/17 21:51 Dose: 1 mg Home Med (Tapentadol Hcl [Nucynta]) 100 mg PO Q8@0500,1300,2100 [facility] Last Admin: 04/24/17 09:03 Dose: 100 mg Aztreonam 2 gm/ Sodium (Chloride) 100 mls @ 100 mls/hr IVPB Q8H [facility] PRN Reason: Protocol Last Admin: 04/24/17 02:12 Dose: 100 mls/hr Vancomycin HCl 1 gm/ Sodium (Chloride) 250 mls @ 166.667 mls/hr IVPB Q12H [facility] PRN Reason: Protocol Last Admin: 04/23/17 22:30 Dose: 166.667 mls/hr Acyclovir 500 mg/ Sodium (Chloride) 100 mls @ 100 mls/hr IV Q8 [facility] PRN Reason: Protocol Last Admin: 04/24/17 09:05 Dose: 100 mls/hr Doxycycline Hyclate 100 mg/ (Sodium Chloride) 100 mls @ 100 mls/hr IVPB Q12 [facility] PRN Reason: Protocol Last Admin: 04/24/17 09:04 Dose: 100 mls/hr Potassium Chloride/Sodium Chloride (Potassium Chl 20 Meq In Ns) 1,000 mls @ 60 mls/hr IV .[id number] [facility] Last Admin: 04/24/17 02:00 Dose: 60 mls/hr Levetiracetam 500 mg/ Sodium (Chloride) 105 mls @ 210 mls/hr IVPB Q12 [facility] Ibuprofen (Motrin Oral Susp) 600 mg PO Q6 PRN PRN Reason: Temperature Metronidazole (Flagyl) 500 mg PO Q8 [facility] PRN Reason: Protocol Last Admin: 04/24/17 08:59 Dose: 500 mg Ondansetron HCl (Zofran Inj) 4 mg IVP Q4 PRN PRN Reason: Nausea/Vomiting Potassium Chloride (K-Dur 20 Meq Er Tab) 40 meq PO DAILY [facility] Last Admin: 04/23/17 09:11 Dose: 40 meq Physical Exam - Respiratory Exam Respiratory Exam: NORMAL BREATHING PATTERN - Cardiovascular Exam Cardiovascular Exam: REGULAR RHYTHM, Systolic Murmur Results - Vital Signs Recent Vital Signs: Last Vital Signs Temp 98.2 F 04/24/17 08:00 Pulse 84 04/24/17 08:00 Resp 32 H 04/24/17 08:00 BP 122/84 04/24/17 08:00 Pulse Ox 100 04/24/17 08:00 - Labs Result Diagrams: 04/24/17 04:35 04/24/17 04:35 Labs: Laboratory Results - last 24 hr 04/21/17 04/23/17 04/23/17 04:20 04:40 11:35 WBC RBC Hgb Hct MCV MCH MCHC RDW Plt Count Sodium Potassium Chloride Carbon Dioxide Anion Gap BUN Creatinine Est GFR ( Amer) Est GFR (Non-Af Amer) Random Glucose Hemoglobin A1c 5.3 Lactic Acid Calcium Phosphorus Magnesium Total Bilirubin AST ALT Alkaline Phosphatase NT-Pro-B Natriuret Pep 1600 H Total Protein Albumin Globulin Albumin/Globulin Ratio Procalcitonin Fluid Type CSF Volume CSF Appearance CSF WBC CSF RBC CSF Total Cell Counted CSF Neutrophils CSF Lymphocytes CSF Monos/Macrophages CSF Comment CSF Glucose CSF Total Protein Urine Opiates Screen Urine Methadone Screen Ur Barbiturates Screen Ur Phencyclidine Scrn Ur Amphetamines Screen U Benzodiazepines Scrn U Oth Cocaine Metabols U Cannabinoids Screen Rheumatoid Factor IgG <5 Rheumatoid Factor IgA <5 Lyme Disease Screen HIV-1 Ab Rapid Screen 04/23/17 04/23/17 04/23/17 11:35 11:40 12:25 WBC RBC Hgb Hct MCV MCH MCHC RDW Plt Count Sodium Potassium Chloride Carbon Dioxide Anion Gap BUN Creatinine Est GFR ( Amer) Est GFR (Non-Af Amer) Random Glucose Hemoglobin A1c Lactic Acid 1.0 Calcium Phosphorus Magnesium Total Bilirubin AST ALT Alkaline Phosphatase NT-Pro-B Natriuret Pep Total Protein Albumin Globulin Albumin/Globulin Ratio Procalcitonin 0.09 L Fluid Type CSF Volume CSF Appearance CSF WBC CSF RBC CSF Total Cell Counted CSF Neutrophils CSF Lymphocytes CSF Monos/Macrophages CSF Comment CSF Glucose CSF Total Protein Urine Opiates Screen Negative Urine Methadone Screen Negative Ur Barbiturates Screen Negative Ur Phencyclidine Scrn Negative Ur Amphetamines Screen Negative U Benzodiazepines Scrn Negative U Oth Cocaine Metabols Negative U Cannabinoids Screen Negative Rheumatoid Factor IgG Rheumatoid Factor IgA Lyme Disease Screen HIV-1 Ab Rapid Screen 04/23/17 04/23/17 04/23/17 12:39 18:52 18:52 WBC RBC Hgb Hct MCV MCH MCHC RDW Plt Count Sodium 127 L Potassium 3.7 Chloride 93 L Carbon Dioxide 30 Anion Gap 8 L BUN 6 L Creatinine 0.4 L Est GFR ( Amer) > 60 Est GFR (Non-Af Amer) > 60 Random Glucose 90 Hemoglobin A1c Lactic Acid Calcium 8.0 L Phosphorus 1.2 L Magnesium 1.8 Total Bilirubin 0.5 AST 31 ALT 47 Alkaline Phosphatase 40 NT-Pro-B Natriuret Pep Total Protein 6.0 L Albumin 3.4 L Globulin 2.6 Albumin/Globulin Ratio 1.3 Procalcitonin Fluid Type CSF Volume CSF Appearance CSF WBC CSF RBC CSF Total Cell Counted CSF Neutrophils CSF Lymphocytes CSF Monos/Macrophages CSF Comment CSF Glucose CSF Total Protein Urine Opiates Screen Urine Methadone Screen Ur Barbiturates Screen Ur Phencyclidine Scrn Ur Amphetamines Screen U Benzodiazepines Scrn U Oth Cocaine Metabols U Cannabinoids Screen Rheumatoid Factor IgG Rheumatoid Factor IgA Lyme Disease Screen <0.90 HIV-1 Ab Rapid Screen Non reactive 04/23/17 04/23/17 04/23/17 18:54 22:18 22:18 WBC RBC Hgb Hct MCV MCH MCHC RDW Plt Count Sodium Potassium Chloride Carbon Dioxide Anion Gap BUN Creatinine Est GFR ( Amer) Est GFR (Non-Af Amer) Random Glucose Hemoglobin A1c Lactic Acid 0.9 Calcium Phosphorus Magnesium Total Bilirubin AST ALT Alkaline Phosphatase NT-Pro-B Natriuret Pep Total Protein Albumin Globulin Albumin/Globulin Ratio Procalcitonin Fluid Type Spinal fluid CSF Volume 1 CSF Appearance Clear/colorless CSF WBC 2.0 CSF RBC 10.0 H CSF Total Cell Counted 100 H CSF Neutrophils 21 H CSF Lymphocytes 55.0 H CSF Monos/Macrophages 24 H CSF Comment Colorless CSF Glucose 47 CSF Total Protein 114.0 H* Urine Opiates Screen Urine Methadone Screen Ur Barbiturates Screen Ur Phencyclidine Scrn Ur Amphetamines Screen U Benzodiazepines Scrn U Oth Cocaine Metabols U Cannabinoids Screen Rheumatoid Factor IgG Rheumatoid Factor IgA Lyme Disease Screen HIV-1 Ab Rapid Screen 04/24/17 04/24/17 04:35 04:35 WBC 8.5 RBC 3.85 Hgb 12.2 Hct 35.2 MCV 91.4 MCH 31.7 H MCHC 34.7 RDW 12.3 Plt Count 131 Sodium 129 L Potassium 4.0 Chloride 100 Carbon Dioxide 24 Anion Gap 9 L BUN 7 Creatinine 0.5 L Est GFR ( Amer) > 60 Est GFR (Non-Af Amer) > 60 Random Glucose 97 Hemoglobin A1c Lactic Acid Calcium 7.9 L Phosphorus Magnesium Total Bilirubin AST ALT Alkaline Phosphatase NT-Pro-B Natriuret Pep Total Protein Albumin Globulin Albumin/Globulin Ratio Procalcitonin Fluid Type CSF Volume CSF Appearance CSF WBC CSF RBC CSF Total Cell Counted CSF Neutrophils CSF Lymphocytes CSF Monos/Macrophages CSF Comment CSF Glucose CSF Total Protein Urine Opiates Screen Urine Methadone Screen Ur Barbiturates Screen Ur Phencyclidine Scrn Ur Amphetamines Screen U Benzodiazepines Scrn U Oth Cocaine Metabols U Cannabinoids Screen Rheumatoid Factor IgG Rheumatoid Factor IgA Lyme Disease Screen HIV-1 Ab Rapid Screen Assessment & Plan (1) Acute gastroenteritis Status: Acute (2) Altered mental status Assessment and Plan: Metabolic encephalopathy Status: Acute (3) Witnessed seizure Assessment and Plan: No evidence of Cardiac emboli NO Thrombi/vegetations Metabolic encephalopathy Status: Acute Priority: Low
[2017-04-24] MEDS: levETIRAcetam 500 MG in Sodium Chloride 0.9% 100 ML IVPB SCH ×2 (12:11→21:58)
[2017-04-24] MEDS: Potassium Chloride 20 mEq ER Tab PO SCH (12:11)
[2017-04-24] MEDS: ROPINIROLE HCL 1 MG PO SCH (12:16)
--- NOTE | 2017-04-24 12:46 | CP.PCM.CON ---
History of Present Illness - History of Present Illness History of Present Illness: R MCA infarct relatively min mass effect no indication for surgical intervention suggest med mgmt (HOB elevation,dehydration) : defer to Dr Ling Past Patient History - Past Medical History & Family History Past Medical History?: Yes Past Family History: Reviewed and not pertinent - Past Social History Smoking Status: Never Smoked Alcohol: None Drugs: Denies - CARDIAC Hx Hypertension: Yes - PULMONARY Hx Sleep Apnea: Yes - RENAL Hx Chronic Kidney Disease: No - ENDOCRINE/METABOLIC Hx Endocrine Disorders: No - HEMATOLOGICAL/ONCOLOGICAL Hx Blood Disorders: No - MUSCULOSKELETAL/RHEUMATOLOGICAL Hx Falls: Yes - PSYCHIATRIC Hx Substance Use: No - SURGICAL HISTORY Hx Cholecystectomy: Yes - ANESTHESIA Hx Anesthesia: No Meds Allergies/Adverse Reactions: Allergies Allergy/AdvReac Type Severity Reaction Status Date / Time cefaclor [From [facility]] Allergy RASH Verified 04/20/17 11:06 - Medications Medications: Current Medications Acetaminophen (Tylenol 650mg/20.3ml Solution Ud) 650 mg PO Q4 PRN PRN Reason: Temperature Acetaminophen (Tylenol 650 Mg Supp) 650 mg [place] Q4 PRN PRN Reason: Fever >100.4 F Last Admin: 04/24/17 12:14 Dose: 650 mg Al Hydrox/Mg Hydrox/Simethicone (Maalox Plus 30 Ml) 30 ml PO Q4 PRN PRN Reason: Indigestion / Heartburn Atorvastatin Calcium (Lipitor) 40 mg PO DAILY [facility] Last Admin: 04/24/17 09:00 Dose: 40 mg Clopidogrel Bisulfate (Plavix) 75 mg PO DAILY [facility] Last Admin: 04/24/17 09:00 Dose: 75 mg Ferrous Sulfate (Feosol) 325 mg PO DAILY [facility] Last Admin: 04/24/17 08:58 Dose: 325 mg Home Med (Hydrocodone/Acetaminophen [Hydrocodone-Acetamin 10-325 Mg]) 10 mg PO Q6 PRN PRN Reason: Pain, moderate (4-7) Last Admin: 04/23/17 20:55 Dose: 10 mg Home Med (Ropinirole Hcl [Ropinirole Hcl]) 1 mg PO Q12 [facility] Last Admin: 04/24/17 12:16 Dose: Not Given Home Med (Tapentadol Hcl [Nucynta]) 100 mg PO Q8@0500,1300,2100 [facility] Last Admin: 04/24/17 09:03 Dose: 100 mg Aztreonam 2 gm/ Sodium (Chloride) 100 mls @ 100 mls/hr IVPB Q8H [facility] PRN Reason: Protocol Last Admin: 04/24/17 12:09 Dose: 100 mls/hr Vancomycin HCl 1 gm/ Sodium (Chloride) 250 mls @ 166.667 mls/hr IVPB Q12H [facility] PRN Reason: Protocol Last Admin: 04/24/17 12:15 Dose: 166.667 mls/hr Acyclovir 500 mg/ Sodium (Chloride) 100 mls @ 100 mls/hr IV Q8 [facility] PRN Reason: Protocol Last Admin: 04/24/17 09:05 Dose: 100 mls/hr Doxycycline Hyclate 100 mg/ (Sodium Chloride) 100 mls @ 100 mls/hr IVPB Q12 [facility] PRN Reason: Protocol Last Admin: 04/24/17 09:04 Dose: 100 mls/hr Potassium Chloride/Sodium Chloride (Potassium Chl 20 Meq In Ns) 1,000 mls @ 60 mls/hr IV .[id number] [facility] Last Admin: 04/24/17 02:00 Dose: 60 mls/hr Levetiracetam 500 mg/ Sodium (Chloride) 105 mls @ 210 mls/hr IVPB Q12 [facility] Last Admin: 04/24/17 12:11 Dose: 210 mls/hr Ibuprofen (Motrin Oral Susp) 600 mg PO Q6 PRN PRN Reason: Temperature Metronidazole (Flagyl) 500 mg PO Q8 [facility] PRN Reason: Protocol Last Admin: 04/24/17 01:04 Dose: Not Given Ondansetron HCl (Zofran Inj) 4 mg IVP Q4 PRN PRN Reason: Nausea/Vomiting Potassium Chloride (K-Dur 20 Meq Er Tab) 40 meq PO DAILY [facility] Last Admin: 04/24/17 12:11 Dose: Not Given Results - Vital Signs Recent Vital Signs: Last Vital Signs Temp 99.7 F H 04/24/17 12:00 Pulse 96 H 04/24/17 12:00 Resp 28 H 04/24/17 12:00 BP 126/81 04/24/17 12:00 Pulse Ox 100 04/24/17 12:00 - Labs Result Diagrams: 04/24/17 04:35 04/24/17 04:35 Labs: Laboratory Results - last 24 hr 04/21/17 04/23/17 04/23/17 04:20 04:40 11:35 WBC RBC Hgb Hct MCV MCH MCHC RDW Plt Count Sodium Potassium Chloride Carbon Dioxide Anion Gap BUN Creatinine Est GFR ( Amer) Est GFR (Non-Af Amer) Random Glucose Hemoglobin A1c 5.3 Lactic Acid Calcium Phosphorus Magnesium Total Bilirubin AST ALT Alkaline Phosphatase Total Protein Albumin Globulin Albumin/Globulin Ratio Procalcitonin 0.09 L Fluid Type CSF Volume CSF Appearance CSF WBC CSF RBC CSF Total Cell Counted CSF Neutrophils CSF Lymphocytes CSF Monos/Macrophages CSF Comment CSF Glucose CSF Total Protein Urine Opiates Screen Urine Methadone Screen Ur Barbiturates Screen Ur Phencyclidine Scrn Ur Amphetamines Screen U Benzodiazepines Scrn U Oth Cocaine Metabols U Cannabinoids Screen Rheumatoid Factor IgG <5 Rheumatoid Factor IgA <5 Lyme Disease Screen HIV-1 Ab Rapid Screen 04/23/17 04/23/17 04/23/17 12:25 12:39 18:52 WBC RBC Hgb Hct MCV MCH MCHC RDW Plt Count Sodium Potassium Chloride Carbon Dioxide Anion Gap BUN Creatinine Est GFR ( Amer) Est GFR (Non-Af Amer) Random Glucose Hemoglobin A1c Lactic Acid Calcium Phosphorus Magnesium Total Bilirubin AST ALT Alkaline Phosphatase Total Protein Albumin Globulin Albumin/Globulin Ratio Procalcitonin Fluid Type CSF Volume CSF Appearance CSF WBC CSF RBC CSF Total Cell Counted CSF Neutrophils CSF Lymphocytes CSF Monos/Macrophages CSF Comment CSF Glucose CSF Total Protein Urine Opiates Screen Negative Urine Methadone Screen Negative Ur Barbiturates Screen Negative Ur Phencyclidine Scrn Negative Ur Amphetamines Screen Negative U Benzodiazepines Scrn Negative U Oth Cocaine Metabols Negative U Cannabinoids Screen Negative Rheumatoid Factor IgG Rheumatoid Factor IgA Lyme Disease Screen <0.90 HIV-1 Ab Rapid Screen Non reactive 04/23/17 04/23/17 04/23/17 18:52 18:54 22:18 WBC RBC Hgb Hct MCV MCH MCHC RDW Plt Count Sodium 127 L Potassium 3.7 Chloride 93 L Carbon Dioxide 30 Anion Gap 8 L BUN 6 L Creatinine 0.4 L Est GFR ( Amer) > 60 Est GFR (Non-Af Amer) > 60 Random Glucose 90 Hemoglobin A1c Lactic Acid 0.9 Calcium 8.0 L Phosphorus 1.2 L Magnesium 1.8 Total Bilirubin 0.5 AST 31 ALT 47 Alkaline Phosphatase 40 Total Protein 6.0 L Albumin 3.4 L Globulin 2.6 Albumin/Globulin Ratio 1.3 Procalcitonin Fluid Type Spinal fluid CSF Volume 1 CSF Appearance Clear/colorless CSF WBC 2.0 CSF RBC 10.0 H CSF Total Cell Counted 100 H CSF Neutrophils 21 H CSF Lymphocytes 55.0 H CSF Monos/Macrophages 24 H CSF Comment Colorless CSF Glucose CSF Total Protein Urine Opiates Screen Urine Methadone Screen Ur Barbiturates Screen Ur Phencyclidine Scrn Ur Amphetamines Screen U Benzodiazepines Scrn U Oth Cocaine Metabols U Cannabinoids Screen Rheumatoid Factor IgG Rheumatoid Factor IgA Lyme Disease Screen HIV-1 Ab Rapid Screen 04/23/17 04/24/17 04/24/17 22:18 04:35 04:35 WBC 8.5 RBC 3.85 Hgb 12.2 Hct 35.2 MCV 91.4 MCH 31.7 H MCHC 34.7 RDW 12.3 Plt Count 131 Sodium 129 L Potassium 4.0 Chloride 100 Carbon Dioxide 24 Anion Gap 9 L BUN 7 Creatinine 0.5 L Est GFR ( Amer) > 60 Est GFR (Non-Af Amer) > 60 Random Glucose 97 Hemoglobin A1c Lactic Acid Calcium 7.9 L Phosphorus Magnesium Total Bilirubin AST ALT Alkaline Phosphatase Total Protein Albumin Globulin Albumin/Globulin Ratio Procalcitonin Fluid Type CSF Volume CSF Appearance CSF WBC CSF RBC CSF Total Cell Counted CSF Neutrophils CSF Lymphocytes CSF Monos/Macrophages CSF Comment CSF Glucose 47 CSF Total Protein 114.0 H* Urine Opiates Screen Urine Methadone Screen Ur Barbiturates Screen Ur Phencyclidine Scrn Ur Amphetamines Screen U Benzodiazepines Scrn U Oth Cocaine Metabols U Cannabinoids Screen Rheumatoid Factor IgG Rheumatoid Factor IgA Lyme Disease Screen HIV-1 Ab Rapid Screen
--- NOTE | 2017-04-24 13:26 | US ---
PROCEDURE: Duplex ultrasound of the carotid and vertebral arteries. HISTORY: Acute CVA COMPARISON: None available. TECHNIQUE: Grayscale and duplex Doppler evaluation of the cervical carotid and vertebral arteries were performed. The common carotid, carotid bifurcations and cervical ICA and proximal ECA were evaluated. The vertebral arteries were evaluated for gross patency and direction. FINDINGS: No evidence of occlusion. No significant atherosclerotic plaque formation identified. However note made of slight increased velocities in both internal carotid arteries suggest between 40-59 % diameter stenosis although elevated velocities could also be due to tortuosity of the internal carotid arteries RIGHT CAROTID ARTERIES: Maximal right ICA velocity = 125.5 cm/S Maximal right CCA velocity = 81.6 cm/S ICA/CCA Ratio: 1.7 LEFT CAROTID ARTERIES: Maximal left ICA velocity = 123.1 cm/S Maximal left CCA velocity = 82.5 cm/S ICA/CCA Ratio: In 1.9 VERTEBRAL ARTERIES: Right Vertebral Artery: Patent. Antegrade flow. Left Vertebral Artery: Patent. Antegrade flow. OTHER FINDINGS: None. IMPRESSION: No evidence of occlusion. No significant atherosclerotic plaque formation identified. However note made of slight increased velocities in both internal carotid arteries suggest between 40-59 % diameter stenosis although elevated velocities could also be due to tortuosity of the internal carotid arteries
--- NOTE | 2017-04-24 13:54 | CP.PCM.PN ---
Subjective - Date & Time of Evaluation Date of Evaluation: 04/24/17 Time of Evaluation: 13:53 - Subjective Subjective: lethargic Objective - Vital Signs/Intake and Output Vital Signs (last 24 hours): Temp Pulse Resp BP Pulse Ox 99.7 F H 96 H 28 H 126/81 100 04/24/17 12:00 04/24/17 12:00 04/24/17 12:00 04/24/17 12:00 04/24/17 12:00 Intake and Output: 04/24/17 04/24/17 06:59 18:59 Intake Total 1330 Output Total 700 Balance 630 - Medications Medications: Current Medications Acetaminophen (Tylenol 650mg/20.3ml Solution Ud) 650 mg PO Q4 PRN PRN Reason: Temperature Acetaminophen (Tylenol 650 Mg Supp) 650 mg [place] Q4 PRN PRN Reason: Fever >100.4 F Last Admin: 04/24/17 12:14 Dose: 650 mg Al Hydrox/Mg Hydrox/Simethicone (Maalox Plus 30 Ml) 30 ml PO Q4 PRN PRN Reason: Indigestion / Heartburn Atorvastatin Calcium (Lipitor) 40 mg PO DAILY [facility] Last Admin: 04/24/17 09:00 Dose: Not Given Clopidogrel Bisulfate (Plavix) 75 mg PO DAILY [facility] Last Admin: 04/24/17 09:00 Dose: Not Given Ferrous Sulfate (Feosol) 325 mg PO DAILY [facility] Last Admin: 04/24/17 13:21 Dose: Not Given Home Med (Hydrocodone/Acetaminophen [Hydrocodone-Acetamin 10-325 Mg]) 10 mg PO Q6 PRN PRN Reason: Pain, moderate (4-7) Last Admin: 04/23/17 20:55 Dose: 10 mg Home Med (Ropinirole Hcl [Ropinirole Hcl]) 1 mg PO Q12 [facility] Last Admin: 04/24/17 12:16 Dose: Not Given Home Med (Tapentadol Hcl [Nucynta]) 100 mg PO Q8@0500,1300,2100 [facility] Last Admin: 04/24/17 09:03 Dose: 100 mg Aztreonam 2 gm/ Sodium (Chloride) 100 mls @ 100 mls/hr IVPB Q8H [facility] PRN Reason: Protocol Last Admin: 04/24/17 12:09 Dose: 100 mls/hr Vancomycin HCl 1 gm/ Sodium (Chloride) 250 mls @ 166.667 mls/hr IVPB Q12H [facility] PRN Reason: Protocol Last Admin: 04/24/17 12:15 Dose: 166.667 mls/hr Acyclovir 500 mg/ Sodium (Chloride) 100 mls @ 100 mls/hr IV Q8 [facility] PRN Reason: Protocol Last Admin: 04/24/17 09:05 Dose: 100 mls/hr Doxycycline Hyclate 100 mg/ (Sodium Chloride) 100 mls @ 100 mls/hr IVPB Q12 [facility] PRN Reason: Protocol Last Admin: 04/24/17 09:04 Dose: 100 mls/hr Potassium Chloride/Sodium Chloride (Potassium Chl 20 Meq In Ns) 1,000 mls @ 60 mls/hr IV .[id number] [facility] Last Admin: 04/24/17 02:00 Dose: 60 mls/hr Levetiracetam 500 mg/ Sodium (Chloride) 105 mls @ 210 mls/hr IVPB Q12 [facility] Last Admin: 04/24/17 12:11 Dose: 210 mls/hr Ibuprofen (Motrin Oral Susp) 600 mg PO Q6 PRN PRN Reason: Temperature Metronidazole (Flagyl) 500 mg PO Q8 [facility] PRN Reason: Protocol Last Admin: 04/24/17 13:21 Dose: Not Given Ondansetron HCl (Zofran Inj) 4 mg IVP Q4 PRN PRN Reason: Nausea/Vomiting Potassium Chloride (K-Dur 20 Meq Er Tab) 40 meq PO DAILY [facility] Last Admin: 04/24/17 12:11 Dose: Not Given - Labs Labs: 04/24/17 04:35 04/24/17 04:35 - Respiratory Exam Respiratory Exam: NORMAL BREATHING PATTERN - Cardiovascular Exam Cardiovascular Exam: REGULAR RHYTHM - GI/Abdominal Exam GI & Abdominal Exam: Soft, Normal Bowel Sounds Assessment and Plan - Assessment and Plan (Free Text) Assessment: 61 yo female with diarrhea infectious w/u in progress head CT pending
[2017-04-24] MEDS ORDERED: Etomidate 20 mg/10ml Inj IV ONE (19:57)
[2017-04-24] MEDS ORDERED: Propofol 10 mg/ml 1,000 MG/100 ML VIAL ONE (19:58)
[2017-04-24] MEDS ORDERED: Midazolam 2 MG/2 ML VIAL ONE (19:58)
[2017-04-24] MEDS ORDERED: Sodium Chloride 3% 500 ML IV SCH (20:15)
[2017-04-24] MEDS ORDERED: Succinylcholine 200 mg/10 ml Inj IV ONE (20:25)
[2017-04-24] MEDS: Propofol 10 mg/ml 1,000 MG/100 ML VIAL IV SCH (20:35)
--- NOTE | 2017-04-24 20:42 | PCM.ANES ---
Anesthesia Emergent Intubation - Diagnosis Working Diagnosis:: CVA / AMS - Consult Reason for Consult:: intubation - Intubation Attempts Previous Number of Intubation Attempts:: 0 - Pre-Intubation Vital Signs Blood Pressure: 129/71 Heart Rate: 92 Respiratory Rate: 16 O2 Sat: 99 FIO2: 100 Oxygen Delivery Method: Ambu-Bag Level Of Consciousness: Comatose/Unresponsive Intubation Meds Given: Propofol, Succinylcholine - Airway Management Oropharyngeal Area Suctioned: Yes PreOxygenation: 100 Inhalation: Yes Rapid Sequence: Yes Cricoid Pressure: Yes Possible Aspiration: No - Method of Intubation Intubation Method: Oral ETT ETT Size: 7.5 Lipline@: 21 Easy: Yes Atramatic: Yes - Intubation Devices [place] Scope Used: Yes - Placement Confirmation Breath Sounds Present & Equal Bilaterally: Yes Gurgling Sounds Not Audible at Epigastrum: Yes Positive EtCO2: Yes Portable CXR: Yes Recommendations: Ventilator
[2017-04-24 21:24] LABS: ABG ALLEN TEST YES; ARTERIAL BLOOD GAS HCO3 29.7 mmol/L (21-28); ARTERIAL BLOOD GAS HEMOGLOBIN 12.5 g/dL (11.7-17.4); ARTERIAL BLOOD GAS O2 CAPACITY 17.6 mL/dL (16-24); ARTERIAL BLOOD GAS O2 CONTENT 17.6 ML/dL (15-23); ARTERIAL BLOOD GAS O2 SAT 100.2 % (95-98); ARTERIAL BLOOD GAS PCO2 38 mm/Hg (35-45); ARTERIAL BLOOD GAS PO2 235 mm/Hg (80-100); ARTERIAL BLOOD GAS TCO2 30.8 mmol/L (22-28)
[2017-04-24] MEDS: Acetaminophen 650mg/20.3ml solution UD PO PRN (21:27)
--- NOTE | 2017-04-24 23:01 | CP.PCM.PN ---
Subjective - Date & Time of Evaluation Date of Evaluation: 04/23/17 Time of Evaluation: 07:15 Objective - Vital Signs/Intake and Output Vital Signs (last 24 hours): Temp Pulse Resp BP Pulse Ox 100.7 F H 92 H 16 129/71 99 04/24/17 21:27 04/24/17 20:43 04/24/17 20:43 04/24/17 20:43 04/24/17 20:43 Intake and Output: 04/24/17 04/25/17 18:59 06:59 Intake Total 25 Balance 25 - Medications Medications: Current Medications Acetaminophen (Tylenol 650mg/20.3ml Solution Ud) 650 mg PO Q4 PRN PRN Reason: Temperature Last Admin: 04/24/17 21:27 Dose: 650 mg Acetaminophen (Tylenol 650 Mg Supp) 650 mg WI Q4 PRN PRN Reason: Fever >100.4 F Last Admin: 04/24/17 12:14 Dose: 650 mg Al Hydrox/Mg Hydrox/Simethicone (Maalox Plus 30 Ml) 30 ml PO Q4 PRN PRN Reason: Indigestion / Heartburn Atorvastatin Calcium (Lipitor) 40 mg PO DAILY [facility] Last Admin: 04/24/17 09:00 Dose: Not Given Clopidogrel Bisulfate (Plavix) 75 mg PO DAILY [facility] Last Admin: 04/24/17 09:00 Dose: Not Given Ferrous Sulfate (Feosol) 325 mg PO DAILY [facility] Last Admin: 04/24/17 13:21 Dose: Not Given Home Med (Hydrocodone/Acetaminophen [Hydrocodone-Acetamin 10-325 Mg]) 10 mg PO Q6 PRN PRN Reason: Pain, moderate (4-7) Last Admin: 04/23/17 20:55 Dose: 10 mg Home Med (Ropinirole Hcl [Ropinirole Hcl]) 1 mg PO Q12 [facility] Last Admin: 04/24/17 12:16 Dose: Not Given Home Med (Tapentadol Hcl [Nucynta]) 100 mg PO Q8@0500,1300,2100 [facility] Last Admin: 04/24/17 13:00 Dose: Not Given Aztreonam 2 gm/ Sodium (Chloride) 100 mls @ 100 mls/hr IVPB Q8H [facility]I PRN Reason: Protocol Last Admin: 04/24/17 17:21 Dose: 100 mls/hr Vancomycin HCl 1 gm/ Sodium (Chloride) 250 mls @ 166.667 mls/hr IVPB Q12H MANDI PRN Reason: Protocol Last Admin: 04/24/17 12:15 Dose: 166.667 mls/hr Acyclovir 500 mg/ Sodium (Chloride) 100 mls @ 100 mls/hr IV Q8 [facility] PRN Reason: Protocol Last Admin: 04/24/17 17:20 Dose: 100 mls/hr Doxycycline Hyclate 100 mg/ (Sodium Chloride) 100 mls @ 100 mls/hr IVPB Q12 [facility] PRN Reason: Protocol Last Admin: 04/24/17 21:55 Dose: 100 mls/hr Potassium Chloride/Sodium Chloride (Potassium Chl 20 Meq In Ns) 1,000 mls @ 60 mls/hr IV .[id number] [facility] Last Admin: 04/24/17 02:00 Dose: 60 mls/hr Levetiracetam 500 mg/ Sodium (Chloride) 105 mls @ 210 mls/hr IVPB Q12 [facility] Last Admin: 04/24/17 21:58 Dose: 210 mls/hr Mannitol (Mannitol) 500 mls @ 50 mls/hr IV .Q10H [facility] Last Admin: 04/24/17 19:40 Dose: 50 mls/hr Sodium Chloride (Hypertonic Saline 3%) 500 mls @ 40 mls/hr IV .[id number] [facility] Stop: 04/25/17 20:13 Last Admin: 04/24/17 20:30 Dose: 40 mls/hr Propofol (Diprivan) 1,000 mg in 100 mls @ 2.232 mls/hr IV .Q24H MANDI; 5 MCG/KG/ MIN PRN Reason: Protocol Stop: 04/25/17 20:37 Last Titration: 04/24/17 21:51 Dose: 15 mcg/kg/min, 6.695 mls/hr Ibuprofen (Motrin Oral Susp) 600 mg PO Q6 PRN PRN Reason: Temperature Metronidazole (Flagyl) 500 mg PO Q8 [facility] PRN Reason: Protocol Last Admin: 04/24/17 17:22 Dose: Not Given Ondansetron HCl (Zofran Inj) 4 mg IVP Q4 PRN PRN Reason: Nausea/Vomiting Potassium Chloride (K-Dur 20 Meq Er Tab) 40 meq PO DAILY [facility] Last Admin: 04/24/17 12:11 Dose: Not Given - Labs Labs: 04/24/17 04:35 04/24/17 04:35 Assessment and Plan (1) Altered mental status Status: Acute (2) Acute gastroenteritis Status: Acute (3) Chronic pain syndrome Status: Chronic (4) DILIA (obstructive sleep apnea) Status: Chronic
--- NOTE | 2017-04-24 23:12 | CP.PCM.PN ---
Subjective - Date & Time of Evaluation Date of Evaluation: 04/24/17 Time of Evaluation: 11:45 Objective - Vital Signs/Intake and Output Vital Signs (last 24 hours): Temp Pulse Resp BP Pulse Ox 100.7 F H 92 H 16 129/71 99 04/24/17 21:27 04/24/17 20:43 04/24/17 20:43 04/24/17 20:43 04/24/17 20:43 Intake and Output: 04/24/17 04/25/17 18:59 06:59 Intake Total 25 Balance 25 - Medications Medications: Current Medications Acetaminophen (Tylenol 650mg/20.3ml Solution Ud) 650 mg PO Q4 PRN PRN Reason: Temperature Last Admin: 04/24/17 21:27 Dose: 650 mg Acetaminophen (Tylenol 650 Mg Supp) 650 mg SC Q4 PRN PRN Reason: Fever >100.4 F Last Admin: 04/24/17 12:14 Dose: 650 mg Al Hydrox/Mg Hydrox/Simethicone (Maalox Plus 30 Ml) 30 ml PO Q4 PRN PRN Reason: Indigestion / Heartburn Atorvastatin Calcium (Lipitor) 40 mg PO DAILY [facility] Last Admin: 04/24/17 09:00 Dose: Not Given Clopidogrel Bisulfate (Plavix) 75 mg PO DAILY [facility] Last Admin: 04/24/17 09:00 Dose: Not Given Ferrous Sulfate (Feosol) 325 mg PO DAILY [facility] Last Admin: 04/24/17 13:21 Dose: Not Given Home Med (Hydrocodone/Acetaminophen [Hydrocodone-Acetamin 10-325 Mg]) 10 mg PO Q6 PRN PRN Reason: Pain, moderate (4-7) Last Admin: 04/23/17 20:55 Dose: 10 mg Home Med (Ropinirole Hcl [Ropinirole Hcl]) 1 mg PO Q12 [facility] Last Admin: 04/24/17 12:16 Dose: Not Given Home Med (Tapentadol Hcl [Nucynta]) 100 mg PO Q8@0500,1300,2100 [facility] Last Admin: 04/24/17 13:00 Dose: Not Given Aztreonam 2 gm/ Sodium (Chloride) 100 mls @ 100 mls/hr IVPB Q8H [facility]ANDI PRN Reason: Protocol Last Admin: 04/24/17 17:21 Dose: 100 mls/hr Vancomycin HCl 1 gm/ Sodium (Chloride) 250 mls @ 166.667 mls/hr IVPB Q12H [facility] PRN Reason: Protocol Last Admin: 04/24/17 12:15 Dose: 166.667 mls/hr Acyclovir 500 mg/ Sodium (Chloride) 100 mls @ 100 mls/hr IV Q8 [facility] PRN Reason: Protocol Last Admin: 04/24/17 17:20 Dose: 100 mls/hr Doxycycline Hyclate 100 mg/ (Sodium Chloride) 100 mls @ 100 mls/hr IVPB Q12 [facility] PRN Reason: Protocol Last Admin: 04/24/17 21:55 Dose: 100 mls/hr Potassium Chloride/Sodium Chloride (Potassium Chl 20 Meq In Ns) 1,000 mls @ 60 mls/hr IV .[id number] [facility] Last Admin: 04/24/17 02:00 Dose: 60 mls/hr Levetiracetam 500 mg/ Sodium (Chloride) 105 mls @ 210 mls/hr IVPB Q12 [facility] Last Admin: 04/24/17 21:58 Dose: 210 mls/hr Mannitol (Mannitol) 500 mls @ 50 mls/hr IV .Q10H [facility] Last Admin: 04/24/17 19:40 Dose: 50 mls/hr Sodium Chloride (Hypertonic Saline 3%) 500 mls @ 40 mls/hr IV .[id number] [facility] Stop: 04/25/17 20:13 Last Admin: 04/24/17 20:30 Dose: 40 mls/hr Propofol (Diprivan) 1,000 mg in 100 mls @ 2.232 mls/hr IV .Q24H MANDI; 5 MCG/KG/ MIN PRN Reason: Protocol Stop: 04/25/17 20:37 Last Titration: 04/24/17 21:51 Dose: 15 mcg/kg/min, 6.695 mls/hr Ibuprofen (Motrin Oral Susp) 600 mg PO Q6 PRN PRN Reason: Temperature Metronidazole (Flagyl) 500 mg PO Q8 [facility] PRN Reason: Protocol Last Admin: 04/24/17 17:22 Dose: Not Given Ondansetron HCl (Zofran Inj) 4 mg IVP Q4 PRN PRN Reason: Nausea/Vomiting Potassium Chloride (K-Dur 20 Meq Er Tab) 40 meq PO DAILY [facility] Last Admin: 04/24/17 12:11 Dose: Not Given - Labs Labs: 04/24/17 04:35 04/24/17 04:35 Assessment and Plan (1) Altered mental status Status: Acute (2) Acute gastroenteritis Status: Acute (3) Chronic pain syndrome Status: Chronic (4) DILIA (obstructive sleep apnea) Status: Chronic
--- NOTE | 2017-04-24 23:41 | PN ---
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 SUBJECTIVE: The patient did have seizure, fever, change in mental status, raise the possibility of encephalitis. The patient did have spinal tap for the same yesterday. PHYSICAL EXAMINATION: VITAL SIGNS: Blood pressure 141/75, mean arterial pressure of 97, respiratory rate of 25, pulse rate 105, temperature was 100.5. NEUROLOGIC: The patient is lethargic, moving all four extremities, not responding verbally. Eyes are closed. Roving conjugate gaze noted. Deep tendon reflexes are trace. Plantars are equivocal response on either side. The patient responds to pain. LABORATORY DATA: Her CSF findings shows wbc 2.0, rbc 10, with neutrophils of 21, macrophage of 55, glucose is 47, and protein is 114. CT of the head reported as left MCA stroke without hemorrhagic component and mild shift of 4 mm to the left side. ASSESSMENT AND PLAN: From neurological point of view, considering her worsening neuro status as well as infectious status, the patient should be electively intubated. The patient can get intravenous mannitol to bring down the intracranial pressure as well. The patient was started on Keppra 500 mg twice a day. The patient did have electroencephalogram as well today, which was reviewed by me, does not show any electrographic seizure activities. The patient's condition will be discussed with all family members and all questions from them will be answered appropriately. Willie Ling MD
[2017-04-25] MEDS: Acyclovir 500 MG in Sodium Chloride 0.9% 100 ML IV SCH (00:10)
[2017-04-25 01:01] VITALS: O2SAT 100
[2017-04-25] MEDS: Aztreonam 2 GM in Sodium Chloride 0.9% 100 ML IVPB SCH (01:10)
[2017-04-25] MEDS: Propofol 10 mg/ml 1,000 MG/100 ML VIAL IV SCH (02:30)
[2017-04-25] MEDS: Acetaminophen 650mg/20.3ml solution UD PO PRN (02:37)
[2017-04-25 02:38] VITALS: TEMP 102
[2017-04-25] MEDS: ROPINIROLE HCL 1 MG PO SCH (03:04)
[2017-04-25 03:40] VITALS: PULSE 89; RESP 14
[2017-04-25 03:43] VITALS: BP 123/78
--- NOTE | 2017-04-25 12:30 | RAD ---
PROCEDURE: CHEST RADIOGRAPH, 1 VIEW HISTORY: intubated COMPARISON: 04/23/2017 FINDINGS: LUNGS: Clear. PLEURA: No pneumothorax or pleural fluid seen. CARDIOVASCULAR: Endotracheal tube tip approximately 4.9 cm above the tracheal cory. Right PICC catheter unchanged. OSSEOUS STRUCTURES: No significant abnormalities. VISUALIZED UPPER ABDOMEN: Normal. OTHER FINDINGS: None. IMPRESSION: New ET tube appropriately positioned. No infiltrate.
--- NOTE | 2017-04-25 14:55 | EEG ---
DATE: 04/23/2017 This is a 16-channel electroencephalogram of awake, confused, and lethargic adult. Study was performed and photic stimulation was not performed. Resting electroencephalogram consists of diffuse 20 to 30 microvolts theta activities noted in bilateral cortical leads. This activity has further slowed down to form high amplitude delta activities seen. Some movement and muscle artifact contaminated the background rhythm. The photic stimulation did not evoke driving response noted at 2 to 20 Hz. IMPRESSION: This is an abnormal electroencephalogram because of persistent slowing throughout the record suggestive of bilateral cerebral dysfunction. This is probably secondary to metabolic vascular degenerative process. Please correlate the finding with the neurological and radiological studies. During the study, neither electroencephalographic paroxysmal activities nor focal slowing noted. Willie Ling MD
--- NOTE | 2017-04-25 23:55 | CP.PCM.DIS ---
Provider - Provider Date of Admission: 04/20/17 16:58 Attending physician: Freddy Torres MD Time Spent in preparation of Discharge (in minutes): 20 Diagnosis - Discharge Diagnosis (1) Altered mental status Status: Acute (2) Acute gastroenteritis Status: Acute (3) Chronic pain syndrome Status: Chronic Priority: Medium (4) DILIA (obstructive sleep apnea) Status: Chronic Priority: Low Hospital Course - Lab Results Lab Results: Micro Results 04/21/17 22:20 Blood-Venous Blood Culture - Preliminary NO GROWTH AFTER 4 DAYS 04/24/17 07:05 Trachasp Gram Stain - Preliminary 04/23/17 22:18 Other: Please Indicate Mycobacterial Culture - Preliminary 04/20/17 11:55 Blood-Venous Blood Culture - Final NO GROWTH AFTER 5 DAYS 04/20/17 11:55 Blood-Venous Gram Stain - Final TEST NOT PERFORMED 04/23/17 11:40 Blood Blood Culture - Preliminary NO GROWTH AFTER 48 HOURS 04/23/17 11:40 Blood Blood Culture - Preliminary NO GROWTH AFTER 48 HOURS 04/21/17 07:50 Blood Blood Culture - Preliminary NO GROWTH AFTER 4 DAYS 04/22/17 Unknown Naris MRSA Culture (Admit) - Final MRSA NOT DETECTED 04/21/17 09:20 Stool Ova and Parasite Concentrate Exam - Final 04/21/17 09:20 Stool Stool Culture - Final NO SALMONELLA, SHIGELLA OR CAMPYLOBACTER ISOLATED. 04/23/17 12:19 Rectum Ova and Parasite Concentrate Exam - Final 04/21/17 09:13 Urine,Clean Catch Urine Culture - Final No Growth (<1,000 CFU/ML) Most Recent Lab Values WBC 8.5 K/uL (4.8-10.8) 04/24/17 04:35 RBC 3.85 Mil/uL (3.80-5.20) 04/24/17 04:35 Hgb 12.2 g/dL (12.0-16.0) 04/24/17 04:35 Hct 35.2 % (34.0-47.0) 04/24/17 04:35 MCV 91.4 fl (81.0-99.0) 04/24/17 04:35 MCH 31.7 pg (27.0-31.0) H 04/24/17 04:35 MCHC 34.7 g/dL (33.0-37.0) 04/24/17 04:35 RDW 12.3 % (11.5-14.5) 04/24/17 04:35 Plt Count 131 K/uL (130-400) 04/24/17 04:35 MPV 8.6 fl (7.2-11.7) 04/22/17 18:37 Neut % (Auto) 77.2 % (50.0-75.0) H 04/22/17 18:37 Lymph % (Auto) 9.8 % (20.0-40.0) L 04/22/17 18:37 [place] % (Auto) 12.8 % (0.0-10.0) H 04/22/17 18:37 Eos % (Auto) 0.0 % (0.0-4.0) 04/22/17 18:37 Baso % (Auto) 0.2 % (0.0-2.0) 04/22/17 18:37 Neut # 8.2 K/uL (1.8-7.0) H 04/22/17 18:37 Lymph # 1.0 K/uL (1.0-4.3) 04/22/17 18:37 [place] # 1.4 K/uL (0.0-0.8) H 04/22/17 18:37 Eos # 0.0 K/uL (0.0-0.7) 04/22/17 18:37 Baso # 0.0 K/uL (0.0-0.2) 04/22/17 18:37 Neutrophils % (Manual) 89 % (42-75) H 04/20/17 11:55 Band Neutrophils % 1 % (0-2) 04/20/17 11:55 Lymphocytes % (Manual) 6 % (20-50) L 04/20/17 11:55 Monocytes % (Manual) 4 % (0-10) 04/20/17 11:55 Platelet Estimate Normal (NORMAL) 04/20/17 11:55 RBC Morphology Normal (NORMAL) 04/20/17 11:55 ESR 18 mm/hr (0-30) 04/21/17 04:20 pCO2 38 mm/Hg (35-45) 04/24/17 21:19 pO2 235 mm/Hg (80-100) H 04/24/17 21:19 HCO3 29.7 mmol/L (21-28) H 04/24/17 21:19 ABG pH 7.50 (7.35-7.45) H 04/24/17 21:19 ABG Total CO2 30.8 mmol/L (22-28) H 04/24/17 21:19 ABG O2 Saturation 100.2 % (95-98) H 04/24/17 21:19 ABG O2 Content 17.6 ML/dL (15-23) 04/24/17 21:19 ABG Base Excess 6.1 mmol/L (-2.0-3.0) H 04/24/17 21:19 ABG Hemoglobin 12.5 g/dL (11.7-17.4) 04/24/17 21:19 ABG Carboxyhemoglobin 1.5 % (0.5-1.5) 04/24/17 21:19 POC ABG HHb (Measured) -0.2 % (0.0-5.0) L 04/24/17 21:19 ABG Methemoglobin 1.4 % (0.0-3.0) 04/24/17 21:19 ABG O2 Capacity 17.6 mL/dL (16-24) 04/24/17 21:19 Randy Test Yes 04/24/17 21:19 ABG Potassium 2.9 mmol/L (3.6-5.2) L 04/22/17 16:08 VBG pH 7.43 (7.32-7.43) 04/20/17 11:52 VBG pCO2 34 mmHg (40-60) L 04/20/17 11:52 VBG HCO3 23.9 mmol/L 04/20/17 11:52 VBG Total CO2 23.6 mmol/L (22-28) 04/20/17 11:52 VBG O2 Sat (Calc) 95.8 % (40-65) H 04/20/17 11:52 VBG Base Excess -1.0 mmol/L (0.0-2.0) L 04/20/17 11:52 VBG Potassium 3.3 mmol/L (3.6-5.2) L 04/20/17 11:52 A-a O2 Difference 74.0 mm/Hg 04/24/17 21:19 Hgb O2 Saturation 97.3 % (95.0-98.0) 04/24/17 21:19 Sodium 123.0 mmol/L (132-148) L 04/22/17 16:08 Chloride 92.0 mmol/L (98-107) L 04/22/17 16:08 Glucose 122 mg/dL (65-105) H 04/22/17 16:08 Lactate 0.7 mmol/L (0.7-2.1) 04/22/17 16:08 Vent Mode Prvc/ac 04/24/17 21:19 Mechanical Rate 14 04/24/17 21:19 FiO2 50.0 % 04/24/17 21:19 Tidal Volume 500 04/24/17 21:19 PEEP 5 04/24/17 21:19 Sodium 129 mmol/l (132-148) L 04/24/17 04:35 Potassium 4.0 MMOL/L (3.6-5.0) 04/24/17 04:35 Chloride 100 mmol/L (98-107) 04/24/17 04:35 Carbon Dioxide 24 mmol/L (22-30) 04/24/17 04:35 Anion Gap 9 (10-20) L 04/24/17 04:35 BUN 7 mg/dl (7-17) 04/24/17 04:35 Creatinine 0.5 mg/dl (0.7-1.2) L 04/24/17 04:35 Est GFR ( Amer) > 60 04/24/17 04:35 Est GFR (Non-Af Amer) > 60 04/24/17 04:35 POC Glucose (mg/dL) 125 mg/dL (65-110) H 04/21/17 22:07 Random Glucose 97 mg/dL (65-105) 04/24/17 04:35 Hemoglobin A1c 5.3 % (4.2-6.5) 04/23/17 04:40 Serum Osmolality 259 mosm/kg (272-300) L 04/23/17 04:40 Lactic Acid 0.9 MMOL/L (0.7-2.1) 04/23/17 18:54 Calcium 7.9 mg/dL (8.4-10.2) L 04/24/17 04:35 Phosphorus 1.2 mg/dl (2.5-4.5) L 04/23/17 18:52 Magnesium 1.8 MG/DL (1.6-2.3) 04/23/17 18:52 Total Bilirubin 0.5 mg/dl (0.2-1.3) 04/23/17 18:52 AST 31 U/L (14-36) 04/23/17 18:52 ALT 47 U/L (9-52) 04/23/17 18:52 Alkaline Phosphatase 40 U/L (38-126) 04/23/17 18:52 C-React Prot High Sens 4.54 mg/L (1.00-3.00) H 04/21/17 04:20 NT-Pro-B Natriuret Pep 1600 pg/ml (0-900) H 04/23/17 11:35 Total Protein 6.0 G/DL (6.3-8.2) L 04/23/17 18:52 Albumin 3.4 g/dL (3.5-5.0) L 04/23/17 18:52 Globulin 2.6 gm/dL (2.2-3.9) 04/23/17 18:52 Albumin/Globulin Ratio 1.3 (1.0-2.1) 04/23/17 18:52 Triglycerides 99 mg/DL (0-149) 04/23/17 04:40 Cholesterol 173 mg/dL (0-199) 04/23/17 04:40 LDL Cholesterol Direct 105 mg/dL (0-129) 04/23/17 04:40 HDL Cholesterol 39 MG/DL (30-70) 04/23/17 04:40 Lipase 55 U/L (23-300) 04/20/17 11:55 Procalcitonin 0.09 NG/ML (0.19-0.49) L 04/23/17 11:35 Free T4 0.73 ng/dL (0.78-2.19) L 04/21/17 07:39 Free T3 pg/mL 2.00 pg/mL (2.77-5.27) L 04/21/17 07:39 TSH 3rd Generation 0.17 mIU/ML (0.46-4.68) L 04/23/17 08:21 Prolactin 5.0 ng/mL (3.0-18.9) 04/21/17 04:20 Arterial Blood Potassium 2.9 mmol/L (3.6-5.2) L 04/22/17 16:08 Venous Blood Potassium 3.3 mmol/L (3.6-5.2) L 04/20/17 11:52 Urine Color Yellow (YELLOW) 04/21/17 23:00 Urine Clarity Slighty-cloudy (Clear) 04/21/17 23:00 Urine pH 6.0 (5.0-8.0) 04/21/17 23:00 Ur Specific [place] 1.012 (1.003-1.030) 04/21/17 23:00 Urine Protein Negative mg/dL (NEGATIVE) 04/21/17 23:00 Urine Glucose (UA) 50 mg/dL (Normal) 04/21/17 23:00 Urine Ketones 80 mg/dL (NEGATIVE) 04/21/17 23:00 Urine Blood Moderate (NEGATIVE) 04/21/17 23:00 Urine Nitrate Negative (NEGATIVE) 04/21/17 23:00 Urine Bilirubin Negative (NEGATIVE) 04/21/17 23:00 Urine Urobilinogen 0.2-1.0 mg/dL (0.2-1.0) 04/21/17 23:00 Ur Leukocyte Esterase Trace Joe/uL (Negative) 04/21/17 23:00 Urine RBC (Auto) 14 /hpf (0-3) H 04/21/17 23:00 Urine Microscopic WBC 3 /hpf (0-5) 04/21/17 23:00 Ur Squamous Epith Cells 1 /hpf (0-5) 04/21/17 23:00 Urine Bacteria Rare (<OCC) 04/21/17 23:00 Urine Osmolality 540 mosm/kg (300-1000) 04/23/17 08:21 Fluid Type Spinal fluid 04/23/17 22:18 CSF Volume 1 mL (0-1) 04/23/17 22:18 CSF Appearance Clear/colorless (CLEAR) 04/23/17 22:18 CSF WBC 2.0 /mm3 (0.0-5.0) 04/23/17 22:18 CSF RBC 10.0 /mm3 (0.0-0.0) H 04/23/17 22:18 CSF Total Cell Counted 100 (0-0) H 04/23/17 22:18 CSF Neutrophils 21 % (0-0) H 04/23/17 22:18 CSF Lymphocytes 55.0 % (0-0) H 04/23/17 22:18 CSF Monos/Macrophages 24 % (0-0) H 04/23/17 22:18 CSF Comment Colorless 04/23/17 22:18 CSF Glucose 47 mg/dL (40-70) 04/23/17 22:18 CSF Total Protein 114.0 mg/dL (12-60) H* 04/23/17 22:18 CSF Lyme IgG Antibody TNP 04/23/17 18:52 Stool Leukocytes, Qual Negative (NEGATIVE) 04/21/17 09:20 Urine Opiates Screen Negative (NEGATIVE) 04/23/17 12:25 Urine Methadone Screen Negative (NEGATIVE) 04/23/17 12:25 Acetaminophen < 10.0 ug/ml (10.0-30.0) L 04/22/17 05:40 Ur Barbiturates Screen Negative (NEGATIVE) 04/23/17 12:25 Ur Phencyclidine Scrn Negative (NEGATIVE) 04/23/17 12:25 Ur Amphetamines Screen Negative (NEGATIVE) 04/23/17 12:25 U Benzodiazepines Scrn Negative (NEGATIVE) 04/23/17 12:25 U Oth Cocaine Metabols Negative (NEGATIVE) 04/23/17 12:25 U Cannabinoids Screen Negative (NEGATIVE) 04/23/17 12:25 Alcohol, Quantitative < 10 mg/dl (0-10) 04/20/17 11:55 Rheumatoid Factor IgG <5 U (<=6) 04/21/17 04:20 Rheumatoid Factor IgA <5 U (<=6) 04/21/17 04:20 Rheumatoid Factor IgM <5 U (<=6) 04/21/17 04:20 Lyme Disease Screen <0.90 index 04/23/17 18:52 Lyme Bands Present TNP 04/23/17 18:52 C. difficile Ag & Toxin Positive antigen (NEGATIVE) 04/21/17 09:20 West Nile Virus IgM Ab 0.00 04/23/17 18:52 HIV-1 Ab Rapid Screen Non reactive (NON REAC) 04/23/17 12:39 Discharge Exam - Head Exam Head Exam: ATRAUMATIC Discharge Plan - Follow Up Plan Condition: FAIR Disposition: Trans to Other Acute Care Hosp Instructions: Dehydration (DC), Ulcerative Colitis (DC), Ulcerative Colitis ( GEN), Sepsis (DC), Sepsis (GEN), Altered Mental Status (GEN)
--- NOTE | 2017-04-28 13:20 | PQF SEPSIS ---
Dr. Medel: Dr. Brian alex note dated 04/[address] Medel documented " severe sepsis and cdiff colitis." After study were these diagnoses ruled in or out? If ruled in were they present or not present on admission? This form is a permanent part of the medical record Clarification of your documentation is requested to better reflect the severity of illness and intensity of treatment of your patient. Indicators present [] Temp < 96.8 or > 100.4 [] WBC count > 12,000/mm3 or <000/mm3 or 10% immature neutrophils [] Heart Rate > 90 [] Respiratory Rate > 20 [x] Fever or hypothermia [] Chills [] Positive blood cultures [] Hypotension [] Metabolic acidosis (Elevated lactate level, anion gap or reduced blood pH) [x] Acute confusion /Altered Mental Status [] Shock [] Other: [] Location in the medical record that reflects the above clinical findings: [] Treatment Provided: [] PHYSICIAN'S RESPONSE Based on your medical judgment of the clinical indicators outlined above, are you treating this patient for a known or suspected: [] Sepsis / Septicemia Please specify organism if known [] [] SIRS (Systemic Inflammatory Response Syndrome) [] Severe Sepsis (Sepsis with Associated Organ Dysfunction) [] Fever of Unknown Origin [] Other, please indicate: [] [] If Unable to Determine, please check the box, sign and date. Present On Admission (POA) Indicator: [] Present at the time of admission [] Not present at the time of admission [] Clinically Undetermined In responding to this query, please exercise your independent professional judgment. The fact that a question is asked does not imply that any particular answer is desired or expected. Thank you for your clarification on this documentation. If you have any questions please call:[ ] * Thank you, [ ]Poonam Hogan corrections caseworker NATY
--- NOTE | 2017-04-28 13:22 | PQF PNEUMO ---
Dr. Torres 04/[address] Tran documented "possible aspiration pneumonia." After study was this diagnosis ruled in or out? If ruled in was diagnosis present on admission? This form is a permanent part of the medical record Clarification of your documentation is requested to better reflect the severity of illness and intensity of treatment of your patient. Indicators present [] Documented diagnosis of pneumonia [] X-ray findings: [] Positive Sputum cultures [] Cough w/ fever [] Abnormal lungs sounds [] Poor gag reflex [] Speech consults/swallow evaluation [] Vent dependence [] Other: [] Location in the medical record that reflects the above clinical findings: [] Treatment Provided: [] PHYSICIAN'S RESPONSE Based on your medical judgment of the clinical indicators outlined above, are you treating this patient for a known or suspected: [] Aspiration pneumonia [] Community acquired pneumonia [] Ventilator associated pneumonia [] Viral pneumonia [] Bacterial pneumonia Please specify organism: [] [] Other, please indicate [] If Unable to Determine, please check the box, sign and date. Present On Admission (POA) Indicator: [] Present at the time of admission [] Not present at the time of admission [] Clinically Undetermined In responding to this query, please exercise your independent professional judgment. The fact that a question is asked does not imply that any particular answer is desired or expected. Thank you for your clarification on this documentation. If you have any questions please call:[ ] * Thank you, [ ]Poonam Hogan rubber engraver NATY
[2017-04-29 12:57] LABS: SPECIMEN SOURCE CSF
[2017-04-29 20:31] LABS: SOURCE CSF
== END 2017-04-25 03:00 | disposition short-term general hospital (02) | DRG 64 ==
LOC: H.ER 10:52 → H.ERHOLD 16:58 → H.TEL 19:05 → H.ICU/CCU 04-22 18:00
PROVIDERS: ADMIT Internal Medicine; ATTEND Internal Medicine
PROC: 02HV33Z Insertion of Infusion Device into Superior Vena Cava, Percutaneous Approach (ICD-10-PCS; principal; 2017-04-23)
PROC: 009U3ZX Drainage of Spinal Canal, Percutaneous Approach, Diagnostic (ICD-10-PCS; 2017-04-23)
PROC: 5A1935Z Respiratory Ventilation, Less than 24 Consecutive Hours (ICD-10-PCS; 2017-04-24)
PROC: 5A09357 Assistance with Respiratory Ventilation, Less than 24 Consecutive Hours, Continuous Positive Airway Pressure (ICD-10-PCS; 2017-04-24)
PROC: 0BH17EZ Insertion of Endotracheal Airway into Trachea, Via Natural or Artificial Opening (ICD-10-PCS; 2017-04-24)
DX: I63.511 Cerebral infarction due to unspecified occlusion or stenosis of right middle cerebral artery (principal); G93.41 Metabolic encephalopathy; D69.6 Thrombocytopenia, unspecified; I11.0 Hypertensive heart disease with heart failure; A04.72 Enterocolitis due to Clostridium difficile, not specified as recurrent; E87.1 Hypo-osmolality and hyponatremia; F11.20 Opioid dependence, uncomplicated; I50.32 Chronic diastolic (congestive) heart failure; G62.9 Polyneuropathy, unspecified; R65.10 Systemic inflammatory response syndrome (SIRS) of non-infectious origin without acute organ dysfunction; G40.89 Other seizures; I27.20 Pulmonary hypertension, unspecified; G25.81 Restless legs syndrome; E86.0 Dehydration; G43.909 Migraine, unspecified, not intractable, without status migrainosus; G47.33 Obstructive sleep apnea (adult) (pediatric); G89.4 Chronic pain syndrome; E78.5 Hyperlipidemia, unspecified; M79.7 Fibromyalgia; Z91.19 Patient's noncompliance with other medical treatment and regimen; K52.9 Noninfective gastroenteritis and colitis, unspecified